=== PATIENT | male | born 1950 | race Caucasian/White ===

== ENCOUNTER 2020-03-19 08:27 | Outpatient (REF) | payer MEDICARE, SELFPAY ==
[2020-03-19 09:59] LABS: MANUAL DIFF FLAG NO
[2020-03-19 10:02] LABS: Basophils Percent Auto 0.4 % (0-2); Eosinophils Absolute Auto 0.2 X10*3/uL (0.0-0.4); Eosinophils Percent Auto 3.4 % (0-4); Hematocrit 38.3 % (42-52); Hemoglobin 13.4 g/dl (14.0-18.0); Imm Gran Abs Auto 0.03 X10*3/uL (0.00-0.03); Imm Gran Pct Auto 0.6 % (0.0-0.4); Lymphocytes Absolute Auto 0.9 X10*3/uL (1.2-4.9); Lymphocytes Percent Auto 18.3 % (20-40); Mean Corpuscular Hemoglobin 31.2 pg (27.0-33.0); Mean Corpuscular Volume 89.1 fL (80-98); Mean Platelet Volume 10.2 fL (9.4-12.4); Monocytes Absolute Auto 0.5 X10*3/uL (0.1-1.2); Monocytes Percent Auto 10.3 % (2-11); Neutrophils Absolute Auto 3.4 X10*3/uL (2.0-8.3); Platelet Count 224 X10*3/uL (160-400); Red Cell Distribution Width 12.6 % (11.0-16.0)
[2020-03-19 10:35] LABS: Alanine Aminotransferase 67 U/L (0-40); Albumin Level 4.5 g/dL (3.5-5.0); Alkaline Phosphatase 70 U/L (39-117); Anion Gap 15 (12-20); Aspartate Amino Transferase 36 U/L (5-37); Bilirubin Total 0.6 mg/dL (0.0-1.0); Blood Urea Nitrogen 26 mg/dL (9-16); Calcium 9.5 mg/dL (8.4-10.2); Carbon Dioxide 27 mmol/L (22-29); Chloride 103 mmol/L (96-108); Cholesterol 173 mg/dL; Estimated Glomerular Filt Rate > 60; Glucose Fasting 141 mg/dL (60-99); HDL Cholesterol 46 mg/dL; LDL Cholesterol Calculated 85 mg/dl; Potassium 3.8 mmol/l (3.3-5.1); Sodium 141 mmol/L (135-145); Total Protein 7.1 g/dL (6.5-8.0); Triglycerides 213 mg/dL
[2020-03-19 10:59] LABS: Estimated Average Glucose 134 mg/dL; Hemoglobin A1c % 6.3 %
[2020-03-19 11:05] LABS: Prostate Specific Antigen < 0.05 ng/mL (<0.05-4.0)
[2020-03-19 11:07] LABS: Glucose Urine UA NEG (NEG); Leukocyte Esterase Urine NEG (NEG); Nitrite Urine NEG (NEG); PH 5.5 (5.0-8.0); Specific Gravity - Urine >= 1.030 (1.005-1.025); Urine Blood TRACE (NEG); Urine Ketones NEG (NEG); Urine Protein NEG (NEG-TRACE)
[2020-03-19 11:26] LABS: Appearance Urine CLEAR; Color Urine YELLOW
[2020-03-19 11:31] LABS: Creatinine Urine 97.63 mg/dL; Microalbum/Creatinine Ratio Ur 11.2 ug/mg cr
[2020-03-19 12:00] LABS: Bacteria Urine TRACE /LPF; Calcium Oxalate Crystals Urine TRACE /LPF; RBC Urine 0-2 /HPF (0); Squamous Epithelial Cell Urine TRACE /LPF; WBC Urine 0-2 /HPF (0-4)
[2020-03-19 12:08] LABS: Reflex LDLD? No
== END 2020-03-19 08:28 | disposition home or self-care (01) ==
LOC: HO.LAB 08:27
PROVIDERS: PCP Internal Medicine; Visit Provider Internal Medicine
DX: Z00.00 Encounter for general adult medical examination without abnormal findings (principal); C61 Malignant neoplasm of prostate; I10 Essential (primary) hypertension; E78.00 Pure hypercholesterolemia, unspecified; R73.09 Other abnormal glucose; Z87.448 Personal history of other diseases of urinary system; Z12.5 Encounter for screening for malignant neoplasm of prostate
CPT/HCPCS: 36415; 80053; 80061; 81001; 81003; 82043; 83036; 84153; 85025

== ENCOUNTER 2020-06-26 11:24 | Outpatient (REF) | payer MEDICARE, SELFPAY ==
[2020-06-26 12:21] LABS: Blood Urea Nitrogen 25 mg/dL (9-16); Estimated Glomerular Filt Rate > 60
== END 2020-06-26 11:25 | disposition home or self-care (01) ==
LOC: HO.LNP 11:24
PROVIDERS: Visit Provider Internal Medicine
DX: R79.9 Abnormal finding of blood chemistry, unspecified (principal)
CPT/HCPCS: 82565; 84520

== ENCOUNTER 2020-09-24 10:34 | Outpatient (REF) | payer MEDICARE, SELFPAY ==
[2020-09-24 11:36] LABS: Alanine Aminotransferase 36 U/L (0-40); Albumin Level 4.2 g/dL (3.5-5.0); Alkaline Phosphatase 63 U/L (39-117); Aspartate Amino Transferase 25 U/L (5-37); Bilirubin Direct 0.2 mg/dL (0.0-0.5); Bilirubin Total 0.6 mg/dL (0.0-1.0); Cholesterol 156 mg/dL; Glucose Fasting 139 mg/dL (60-99); HDL Cholesterol 42 mg/dL; LDL Cholesterol Calculated 77 mg/dl; Total Protein 6.7 g/dL (6.5-8.0); Triglycerides 185 mg/dL
[2020-09-24 11:42] LABS: Estimated Average Glucose 137 mg/dL; Hemoglobin A1c % 6.4 %
[2020-09-24 11:48] LABS: Reflex LDLD? No
== END 2020-09-24 10:35 | disposition home or self-care (01) ==
LOC: HO.LNP 10:34
PROVIDERS: Visit Provider Internal Medicine
DX: E78.00 Pure hypercholesterolemia, unspecified (principal); R73.03 Prediabetes
CPT/HCPCS: 80061; 80076; 82947; 83036

== ENCOUNTER 2021-03-26 10:24 | Outpatient (REF) | payer MEDICARE, SELFPAY ==
[2021-03-26 10:27] LABS: MANUAL DIFF FLAG NO
[2021-03-26 11:02] LABS: Basophils Percent Auto 0.6 % (0-2); Eosinophils Absolute Auto 0.3 X10*3/uL (0.0-0.4); Hematocrit 38.4 % (42.0-52.0); Imm Gran Abs Auto 0.03 X10*3/uL (0.00-0.03); Imm Gran Pct Auto 0.6 % (0.0-0.4); Lymphocytes Absolute Auto 1.1 X10*3/uL (1.2-4.9); Mean Corpuscular HGB Conc 33.9 g/dl (31.0-36.0); Mean Corpuscular Hemoglobin 30.5 pg (27.0-33.0); Mean Corpuscular Volume 90.1 fL (80.0-98.0); Mean Platelet Volume 10.4 fL (9.4-12.4); Monocytes Absolute Auto 0.5 X10*3/uL (0.1-1.2); Monocytes Percent Auto 10.1 % (2-11); Neutrophils Absolute Auto 3.3 x10*3/uL (2.0-8.3); Neutrophils Percent Auto 63.7 % (45-73); Platelet Count 217 X10*3/uL (160-400); Red Blood Count 4.26 X10*6/uL (4.60-5.80); Red Cell Distribution Width 12.9 % (11.0-16.0); White Blood Count 5.2 X10*3/uL (4.8-10.8)
[2021-03-26 11:13] LABS: Estimated Average Glucose 148 mg/dL; Hemoglobin A1c % 6.8 %
[2021-03-26 11:17] LABS: Appearance Urine CLEAR; Color Urine YELLOW; Glucose Urine UA NEG (NEG); Leukocyte Esterase Urine NEG (NEG); Nitrite Urine NEG (NEG); PH 5.5 (5.0-8.0); Specific Gravity - Urine >= 1.030 (1.005-1.025); Urine Blood TRACE (NEG); Urine Ketones NEG (NEG); Urine Protein NEG (NEG-TRACE)
[2021-03-26 11:24] LABS: Microalbum/Creatinine Ratio Ur 12.2 ug/mg cr
[2021-03-26 11:32] LABS: Alanine Aminotransferase 51 U/L (0-40); Albumin Level 4.1 g/dL (3.5-5.0); Alkaline Phosphatase 63 U/L (39-117); Anion Gap 14 (12-20); Aspartate Amino Transferase 33 U/L (5-37); Bilirubin Total 0.7 mg/dL (0.0-1.0); Blood Urea Nitrogen 22 mg/dL (9-16); Calcium 9.6 mg/dL (8.4-10.2); Carbon Dioxide 29 mmol/L (22-29); Chloride 105 mmol/L (96-108); Cholesterol 155 mg/dL; Estimated Glomerular Filt Rate > 60; Glucose Fasting 147 mg/dL (60-99); HDL Cholesterol 37 mg/dL; LDL Cholesterol Calculated 76 mg/dl; Potassium 3.9 mmol/L (3.3-5.1); Sodium 144 mmol/L (135-145); Total Protein 6.9 g/dL (6.5-8.0); Triglycerides 212 mg/dL
[2021-03-26 11:59] LABS: RBC Urine 0-2 /HPF (0); Squamous Epithelial Cell Urine TRACE /LPF; WBC Urine 0-2 /HPF (0-4)
[2021-03-26 12:00] LABS: Bacteria Urine TRACE /LPF; Mucus Urine 1+ /LPF
[2021-03-26 12:21] LABS: PSA,Total (Free>4and<10) < 0.05 ng/mL (0.00-4.00)
== END 2021-03-26 10:25 | disposition home or self-care (01) ==
LOC: HO.LNP 10:24
PROVIDERS: Visit Provider Internal Medicine
DX: Z12.5 Encounter for screening for malignant neoplasm of prostate (principal); E78.00 Pure hypercholesterolemia, unspecified; R73.03 Prediabetes; I10 Essential (primary) hypertension; R97.20 Elevated prostate specific antigen [PSA]; D70.9 Neutropenia, unspecified; D64.9 Anemia, unspecified; R79.9 Abnormal finding of blood chemistry, unspecified
CPT/HCPCS: 80053; 80061; 81001; 81003; 82043; 83036; 84153; 85025

== ENCOUNTER 2021-11-18 11:43 | Outpatient (REF) | payer MEDICARE, SELFPAY ==
[2021-11-18 12:34] LABS: Estimated Average Glucose 143 mg/dL; Hemoglobin A1c % 6.6 %
[2021-11-18 12:36] LABS: Alanine Aminotransferase 47 U/L (0-40); Albumin Level 4.2 g/dL (3.5-5.0); Alkaline Phosphatase 59 U/L (39-117); Aspartate Amino Transferase 32 U/L (5-37); Bilirubin Direct 0.3 mg/dL (0.0-0.5); Bilirubin Total 0.8 mg/dL (0.0-1.0); Cholesterol 146 mg/dL; Glucose Fasting 142 mg/dL (60-99); HDL Cholesterol 39 mg/dL; LDL Cholesterol Calculated 78 mg/dl; Total Protein 6.9 g/dL (6.5-8.0); Triglycerides 149 mg/dL
[2021-11-18 13:53] LABS: Reflex LDLD? No
== END 2021-11-18 11:44 | disposition home or self-care (01) ==
LOC: HO.LNP 11:43
PROVIDERS: Visit Provider Internal Medicine
DX: R73.03 Prediabetes (principal); E78.00 Pure hypercholesterolemia, unspecified
CPT/HCPCS: 80061; 80076; 82947; 83036

== ENCOUNTER → 2022-01-06 08:25 | Outpatient (BNVA) | payer MEDICARE, SELFPAY | PROVIDERS: PCP Internal Medicine; Visit Provider Physician Assistant | DX: M17.11 Unilateral primary osteoarthritis, right knee (principal) | CPT/HCPCS: 20610; 99212; J1040 ==

== ENCOUNTER 2022-05-16 11:12 | Outpatient (REF) | payer MEDICARE, SELFPAY ==
[2022-05-16 11:23] LABS: MANUAL DIFF FLAG NO
[2022-05-16 11:50] LABS: Basophils Percent Auto 0.7 % (0-2); Eosinophils Absolute Auto 0.2 X10*3/uL (0.0-0.4); Eosinophils Percent Auto 3.4 % (0-4); Hematocrit 37.9 % (42.0-52.0); Hemoglobin 12.9 g/dl (14.0-18.0); Imm Gran Abs Auto 0.03 X10*3/uL (0.00-0.03); Imm Gran Pct Auto 0.5 % (0.0-0.4); Lymphocytes Absolute Auto 1.2 X10*3/uL (1.2-4.9); Lymphocytes Percent Auto 21.6 % (20-40); Mean Corpuscular Hemoglobin 30.6 pg (27.0-33.0); Mean Corpuscular Volume 89.8 fL (80.0-98.0); Mean Platelet Volume 10.6 fL (9.4-12.4); Monocytes Absolute Auto 0.5 X10*3/uL (0.1-1.2); Monocytes Percent Auto 9.2 % (2-11); Neutrophils Absolute Auto 3.6 x10*3/uL (2.0-8.3); Neutrophils Percent Auto 64.6 % (45-73); Platelet Count 208 X10*3/uL (160-400); Red Blood Count 4.22 X10*6/uL (4.60-5.80); Red Cell Distribution Width 13.1 % (11.0-16.0); White Blood Count 5.5 X10*3/uL (4.8-10.8)
[2022-05-16 11:52] LABS: Appearance Urine Cloudy; Color Urine Yellow; Glucose Urine UA Negative (Negative); Leukocyte Esterase Urine Negative (Negative); Nitrite Urine Negative (Negative); PH 5.5 (5.0-9.0); Urine Blood Negative (Negative); Urine Ketones Negative (Negative); Urine Protein Negative (Neg-Trace)
[2022-05-16 12:52] LABS: Creatinine Urine 99.81 mg/dL
[2022-05-16 13:02] LABS: Alanine Aminotransferase 34 U/L (0-40); Albumin Level 4.2 g/dL (3.5-5.0); Alkaline Phosphatase 58 U/L (39-117); Anion Gap 13 (12-20); Aspartate Amino Transferase 26 U/L (5-37); Bilirubin Total 0.9 mg/dL (0.0-1.0); Blood Urea Nitrogen 24 mg/dL (9-16); Carbon Dioxide 29 mmol/L (22-29); Chloride 105 mmol/L (96-108); Cholesterol 154 mg/dL; Estimated Glomerular Filt Rate > 60; Glucose Fasting 149 mg/dL (60-99); HDL Cholesterol 37 mg/dL; LDL Cholesterol Calculated 84 mg/dl; PSA,Total (Free>4and<10) < 0.10 ng/mL (0.00-4.00); Sodium 143 mmol/L (135-145); Total Protein 6.7 g/dL (6.5-8.0); Triglycerides 167 mg/dL
[2022-05-16 13:12] LABS: Estimated Average Glucose 146 mg/dL; Hemoglobin A1c % 6.7 %
== END 2022-05-16 11:13 | disposition home or self-care (01) ==
LOC: HO.LNP 11:12
PROVIDERS: Visit Provider Internal Medicine
DX: Z00.00 Encounter for general adult medical examination without abnormal findings (principal); I10 Essential (primary) hypertension; E78.00 Pure hypercholesterolemia, unspecified; R97.20 Elevated prostate specific antigen [PSA]; D70.9 Neutropenia, unspecified; E11.9 Type 2 diabetes mellitus without complications; Z12.5 Encounter for screening for malignant neoplasm of prostate
CPT/HCPCS: 80053; 80061; 81003; 82043; 83036; 84153; 85025

== ENCOUNTER 2022-06-03 10:59 | Outpatient (REF) | payer MEDICARE, SELFPAY | END 2022-06-03 11:00 | disposition home or self-care (01) | LOC: HO.LNP 10:59 | PROVIDERS: PCP Internal Medicine; Visit Provider Surgery | DX: L72.3 Sebaceous cyst (principal); Z79.899 Other long term (current) drug therapy | CPT/HCPCS: 11403; 88304; 88305; 99202 ==

== ENCOUNTER → 2022-06-10 09:02 | Outpatient (BNVA) | payer MEDICARE, SELFPAY | PROVIDERS: PCP Internal Medicine; Visit Provider Surgery ==

== ENCOUNTER → 2022-08-25 10:38 | Outpatient (BNVA) | payer MEDICARE, SELFPAY | PROVIDERS: PCP Internal Medicine; Visit Provider Physician Assistant | DX: M17.11 Unilateral primary osteoarthritis, right knee (principal); M25.561 Pain in right knee; Z96.652 Presence of left artificial knee joint | CPT/HCPCS: 20610; 99212; J1040 ==

== ENCOUNTER 2022-11-21 11:44 | Outpatient (REF) | payer MEDICARE, SELFPAY ==
[2022-11-21 13:52] LABS: Cholesterol 133 mg/dL (<200); HDL Cholesterol 38 mg/dL (>40); LDL Cholesterol Calculated 66 mg/dL (<100); Triglycerides 146 mg/dL (<150)
[2022-11-21 13:53] LABS: Alanine Aminotransferase 25 U/L (0-40); Albumin Level 4.3 g/dL (3.5-5.0); Alkaline Phosphatase 56 U/L (39-117); Aspartate Amino Transferase 22 U/L (5-37); Bilirubin Direct 0.2 mg/dL (0.0-0.5); Bilirubin Total 0.7 mg/dL (0.0-1.0); Glucose Fasting 118 mg/dL (60-99); Total Protein 7.1 g/dL (6.5-8.0)
[2022-11-21 15:04] LABS: Estimated Average Glucose 120 mg/dL; Hemoglobin A1c % 5.8 % (<6.0)
[2022-11-21 16:25] LABS: Reflex LDLD? No
== END 2022-11-21 11:45 | disposition home or self-care (01) ==
LOC: HO.LNP 11:44
PROVIDERS: Visit Provider Internal Medicine
DX: E78.00 Pure hypercholesterolemia, unspecified (principal); E11.9 Type 2 diabetes mellitus without complications
CPT/HCPCS: 80061; 80076; 82947; 83036

== ENCOUNTER 2023-05-19 08:38 | Emergency (ER) | payer MEDICARE, SELFPAY ==
--- NOTE | ~2023-05-19 | CT_ITS ---
EXAMINATION: CT HEAD W/O IV CONTRAST CT FACIAL BONES WITHOUT IV CONTRAST CT CERVICAL SPINE W/O IV CONTRAST CLINICAL INFORMATION: History of fall with head strike and pain. Facial injury. COMPARISON: Report of CT imaging of the facial bones from 08/05/2008 (images currently not available for review) TECHNIQUE: Head - Contiguous axial imaging of the head was performed from the skull base to the vertex without the administration of intravenous contrast, and axial images are reconstructed at 2 mm and 5 mm slice thickness. Cervical spine and facial bones - Volumetric, helical CT acquisitions of the cervical spine and facial bones obtained without contrast; in addition to the standard set of axial images, multiplanar reformatted images were provided in the coronal and sagittal imaging planes. This CT examination was performed using dose optimization techniques as appropriate, variously including the following: *Automated exposure control *Adjustment of mA and/or kV according to patient size (this includes techniques or standardized protocols for targeted exams where dose is matched to indication/reason for exam; i.e. extremities or head) *Use of iterative reconstruction technique DLP: 1181 mGy-cm for the head and cervical spine 339 mGy-cm for the face FINDINGS: HEAD: No evidence of intracranial hemorrhage, major vascular territory infarction, focal mass effect or midline shift. Simmons to white matter differentiation is preserved. Mild parenchymal volume loss with commensurate prominence of ventricles and sulci; no hydrocephalus or extra-axial fluid collection. There appear to be chronic mild small vessel ischemic changes of the supratentorial white matter. The calvarium is intact and the mastoid air cells and middle ear cavities are clear. There is mild soft tissue swelling and soft tissue laceration of the right frontal scalp. FACIAL BONES: There is an old fracture of the floor of the right orbit where the osseous defect is approximately 5-6 mm wide and there is focal osseous depression and focal protrusion of extraconal fat into the defect. Otherwise, the globes and orbital hancock, including lamina papyracea, are unremarkable. The orbital apex, optic canals, and retrobulbar fat planes are normal. The maxilla, mandible and temporomandibular joints are intact. The prior facial bone CT exam from 08/05/2008 described a depressed nasal bone fracture. This current exam shows a slightly comminuted fracture with less than 0.2 cm displacement of the right nasal bone. This is likely from the old injury. The pterygoid plates and zygomatic arches are normal. There is minimal mucosal thickening of the floor of the left maxillary sinus and mild mucosal thickening at the floor of the right maxillary sinus. The ostiomeatal units are patent. No air-fluid levels in the paranasal sinuses. CERVICAL SPINE: The skull base, C1 and C2 lateral masses and atlantodental articulation are intact. The vertebral body heights and alignment are maintained. No fractures in the anterior or posterior elements. No prevertebral soft tissue edema or hematoma. There is osteophyte formation at the atlantodental articulation. There is multilevel degenerative narrowing of disc spaces as well as osteophyte and enthesophyte formation, and multilevel facet arthropathy of the cervical spine. The facet joints are ankylosed on the left at C2-C3, C3-C4 and C4-C5 and on the right at C2-C3. Posterior disc osteophyte complex at C6-C7 causes spinal canal stenosis and narrows the central canal to 9-10 mm AP diameter. The facet arthropathy and uncovertebral joint hypertrophy cause at least moderate bilateral neural foraminal stenosis at this level. Incidentally noted is a heterogeneous multinodular thyroid gland and a nodule in the left lower lobe appears to be exceeding 1.5 cm maximum dimension. Thyroid ultrasound follow-up is recommended for further characterization. Lung apices are unremarkable. CT/CT cervical spine wo IV con IMPRESSION: * No calvarial fracture, intracranial hemorrhage or other acute intracranial pathology. * No fracture or malalignment in the extensively degenerated cervical spine. * There is soft tissue laceration of the right frontal scalp. * Old fracture of the floor of the right orbit. Also, there appears to be an old, mildly displaced, slightly comminuted fracture of the right nasal bone.
--- NOTE | ~2023-05-19 | XR_ITS ---
EXAMINATION: XR SHOULDER, RIGHT CLINICAL INFORMATION: Right shoulder pain COMPARISON: None available. TECHNIQUE: AP external rotation, Grashey, scapular Y, and axillary views of the right shoulder. FINDINGS: There is advanced degenerative change in the right shoulder with osteophyte spurring related to the right AC joint. In the right shoulder, there is no evidence of fracture, dislocation or destructive process. There is a healed fracture of the lateral right fifth rib. XR/XR shoulder RT min 2V IMPRESSION: No acute findings.
[2023-05-19 09:11] VITALS: BP 135/69; PULSE 86; RESP 17; TEMP 36.8; O2SAT 96; BMI 33.6
--- NOTE | 2023-05-19 10:35 | ED_ITS ---
HPI - Fall General Chief Complaint: Fall Stated Complaint: Fell - head laceration Time Seen by Provider: 05/19/23 09:58 Source: patient Mode of arrival: ambulatory Limitations: no limitations History of Present Illness HPI Narrative: This is a 73-year-old male hx htn and prostate cancer presenting to the emergency depart with complaints of laceration to head status post trip and fall, patient reports he is walking he tripped on a chair fell forward and hit his head and face on cement. No loss of consciousness. Denies preceding symptoms to fall. Reports he decided to come into the emergency department because he had a large laceration overlying his right eyebrow that was bleeding a lot. Patient states now he has a diffuse headache without visual disturbances or weakness. Patient denies chest pain, shortness of breath, nausea, vomiting, abdominal pain, vision changes, dizziness, weakness. Not on blood thinners. NIH stroke scale 0 GCS 15 Related Data Home Medications Medication Instructions Recorded Confirmed ibuprofen 800 mg tablet 800 mg PO TID 01/06/22 lisinopril 20 1 tab PO BID 01/06/22 mg-hydrochlorothiazide 12.5 mg tablet simvastatin 80 mg tablet 80 mg PO DAILY 01/06/22 zolpidem 5 mg tablet 5 mg PO BEDTIME PRN 01/06/22 Allergies Allergy/AdvReac Type Severity Reaction Status Date / Time atorvastatin [From LIPITOR] Allergy Unknown MYALGIA Unverified 08/25/22 10:46 nut - unspecified [NUTS] Allergy Unknown SWELLING Unverified 08/25/22 10:46 PITTED FRUIT Allergy Severe SWELLING Uncoded 08/25/22 10:46 FRUIT Allergy Unknown SWELLING Uncoded 08/25/22 10:46 WITH SOME FRUIT Review of Systems Review of Systems: Yes all other systems are reviewed and are negative [facility] Past Medical History Attestation statement: The following information was validated with the patient. Source: old records reviewed and nursing notes reviewed Medical History Hypertension Prostate cancer Surgical History History of left knee replacement Family History Family History Father Prostate cancer Sister Breast cancer Social History Social History Alcohol intake: current Alcohol intake frequency: holidays/special occasions only Alcohol type: beer and hard liquor Patient Tobacco Use Status: Former Tobacco user Physical Exam Vital Signs: Vital Signs: Last Vital Signs Temp 98.2 F 05/19/23 09:11 Pulse 86 05/19/23 09:11 Resp 17 05/19/23 09:11 BP 135/69 05/19/23 09:11 Pulse Ox 96 05/19/23 09:11 O2 Del Method Room Air 05/19/23 09:11 BMI result Body Mass Index 33.6 vss Appearance: Alert.? Oriented X3.? No acute distress.? Head: Normocephalic, atraumatic, no step-offs or deformities Eyes: Pupils equal, round and reactive to light.? Neck: Normal inspection.? Neck supple.? CVS: Normal heart rate and rhythm.? Pulses normal.? Respiratory: No respiratory distress.? Breath sounds normal.? Abdomen: Soft and nontender.? Skin: Skin warm and dry.? Normal skin color.? Normal skin turgor.? Extremities: No lower extremity edema.? No calf ttp. 5/5 strength to bilateral upper and lower extremities Neuro: Oriented X 3.? No motor deficit.? No sensory deficit. CN 2-12 intact Course Reevaluation(s) Reevaluation #1: Consent was obtained to suture patient. Laceration was closed with 5, 5-0 nonabsorbable sutures. Patient tolerated procedure well. Educated him on when to return. CT head no intracranial hemorrhage, no fracture malalignment in the extensively degenerated cervical spine. Soft tissue laceration over the right frontal scalp. Old fracture of the floor of the right orbit and old minimally displaced comminuted fracture of the right nasal bone. Patient aware of these old findings. Reports this was from an incident years ago when he fell off a ladder. Offered ibuprofen or Tylenol patient states he has some at home. Patient to be discharged home at this time. Likely has a concussion. Educated patient on diagnosis and treatment plan, answered all question, patient verbalizes understanding. At this time patient will be discharged home, advised to return with new or worsening symptoms. Educated on worrisome signs and symptoms and when to return. At this time I feel comfortable discharge home. Time: 11:37 Medications Administered Discontinued Medications Generic Name Dose Route Start Last Admin Trade Name Freq PRN Reason Stop Dose Admin Diphtheria/Tetanus/Acell Pertussis 0.5 ml 05/19/23 10:36 05/19/23 11:12 Diphth,Pertus(Acell),Tet Adult 0.5 Ml Syringe IM 05/19/23 10:37 0.5 ml .ONCE ONE Administration Lidocaine HCl 5 ml 05/19/23 10:35 05/19/23 11:21 Lidocaine Hcl 2 % Mpf 5 Ml Vial SUBCUT 05/19/23 10:36 Not Given ONCE ONE Lidocaine HCl 5 ml 05/19/23 10:35 05/19/23 11:21 Lidocaine Hcl 2 % Mpf 5 Ml Vial INFILTRATI 05/19/23 10:36 Not Given ONCE ONE Procedures Laceration Laceration 1: Site: face Size (cm): 3 Description: linear Depth: simple, single layer Local Anesthetic: lidocaine 1% Amount of anesthesia used (mL): 4 Pre-repair: wound explored, irrigated extensively and deep structures intact Skin layer closed with: vicryl Size (cm): 5-0 Number of sutures: 5 Technique: simple, interrupted Medical Decision Making Medical Decision Making MDM Narrative: 73-year-old male presents with head lag status post trip and fall. Fall happened earlier this morning. Not on blood thinners. No preceding symptoms to fall. Physical exam with 3 cm laceration overlying the right eyebrow. Neurological assessment nonfocal, cerebellar intact. History and physical exam concerning for laceration and concussion. Unlikely skull fracture, facial bone fracture, intracranial hemorrhage, stroke posterior stroke. No signs of traumatic injury to cervical spine. No signs of traumatic injury to chest, abdomen or pelvis. Patient is complaining of slight right shoulder discomfort however full range of motion likely sprain or strain. Unlikely fracture, dislocation, traumatic subluxation. No signs of threat to limb or neurovascular compromise. Plan at this time imaging. Will also repair laceration with sutures. Differential Diagnosis Differential Diagnoses: The differential diagnosis associated with the presentation includes History and physical exam concerning for laceration and concussion. Unlikely skull fracture, facial bone fracture, intracranial hemorrhage, stroke posterior stroke. No signs of traumatic injury to cervical spine. No signs of traumatic injury to chest, abdomen or pelvis. Patient is complaining of slight right shoulder discomfort however full range of motion likely sprain or strain. Unlikely fracture, dislocation, traumatic subluxation. No signs of threat to limb or neurovascular compromise. Admission/Observation Consideration of admission/observation: Escalation of care including admission/observation considered Unlikely Lab Data MDM Lab Attestation statement: I reviewed the patient's lab results. Independent Interpretation I performed an independent interpretation of an: Plain X-Ray and CT Scan Radiology Impression Discussion of test interpretation with radiology: I have reviewed the radiologist's reading. Independent Historian Self External Record Review External record reviewed: Inpatient record, Office record, Outpatient record, Prior outpatient labs, Prior outpatient radiology, Primary care record and Outside ED record Prescription Management I considered prescription management with: Other (Ibuprofen and tylenol OTC recommended. ) Chronic Conditions Patient?s care impacted by: Hypertension and Cancer (prostate cancer) Social Determinants Patient?s care significantly limited by Social Determinants of Health including: Other Social Determinant of Health Critical Care Time Critical Care Time Critical Care Time: Yes Total Critical Care Time: 35 Attestation: I attest to this time spent taking care of the patient, obtaining history, physical, reviewing labs, imaging, procedure Discharge Plan Discharge Clinical Impression: Concussion without loss of consciousness Qualifiers: Encounter type: initial encounter Qualified Code(s): S06.0X0A - Concussion without loss of consciousness, initial encounter Laceration of head without complication Qualifiers: Encounter type: initial encounter Qualified Code(s): S01.91XA - Laceration without foreign body of unspecified part of head, initial encounter Fall Qualifiers: Encounter type: initial encounter Qualified Code(s): W19.XXXA - Unspecified fall, initial encounter Patient Disposition: Home, Self-Care Instructions: Laceration (ED), Concussion (ED), Post Concussion Syndrome (ED) Additional Instructions: Take your medications as prescribed. If you were prescribed antibiotics today, it is important that you take your medication to their entirety, do not skip any doses, do not finish them early. Follow-up with your primary care provider this week. Return to the emergency department with new or worsening symptoms. Such as fevers, chills, chest pain, shortness of breath, nausea, vomiting, dizziness, headache, vision changes, lethargy In case of emergency call 911 Return in 5-7 days for suture removal You can take ibuprofen every 6 hours Tylenol every 4 as needed for pain or discomfort. Feel better CT/CT facial bones , head and cervical spine wo IV con IMPRESSION: * No calvarial fracture, intracranial hemorrhage or other acute intracranial pathology. * No fracture or malalignment in the extensively degenerated cervical spine. * There is soft tissue laceration of the right frontal scalp. * Old fracture of the floor of the right orbit. Also, there appears to be an old, mildly displaced, slightly comminuted fracture of the right nasal bone. Prescriptions: No Action zolpidem 5 mg tablet 5 mg PO BEDTIME PRN simvastatin 80 mg tablet 80 mg PO DAILY ibuprofen 800 mg tablet 800 mg PO TID lisinopril-hydrochlorothiazide 20-12.5 mg tablet 1 tab PO BID Referrals: Chris Sanchez MD [Primary Care Provider] - 2 days Stand Alone Forms: Work/School Release
[2023-05-19] MEDS: Diphth,Pertus(ACell),Tet Adult 0.5 ML SYRINGE IM (11:12)
== END 2023-05-19 11:58 | disposition home or self-care (01) ==
PROVIDERS: Emergency Provider Emergency Medicine Emergency Medical Services; PCP Internal Medicine
DX: S06.0X0A Concussion without loss of consciousness, initial encounter (principal); S01.01XA Laceration without foreign body of scalp, initial encounter; S00.01XA Abrasion of scalp, initial encounter; M54.2 Cervicalgia; M79.601 Pain in right arm; R51.9 Headache, unspecified; W07.XXXA Fall from chair, initial encounter; Y93.9 Activity, unspecified; Y92.9 Unspecified place or not applicable; Y99.8 Other external cause status; Z79.899 Other long term (current) drug therapy; Z23 Encounter for immunization
CPT/HCPCS: 12013; 70450; 70486; 72125; 73030; 90471; 90715; 99284

== ENCOUNTER 2023-05-19 10:57 | Outpatient (REF) | payer MEDICARE, SELFPAY ==
[2023-05-19 11:01] LABS: MANUAL DIFF FLAG NO
[2023-05-19 11:33] LABS: Appearance Urine Clear; Color Urine Yellow; Glucose Urine UA Negative (Negative); Leukocyte Esterase Urine Negative (Negative); Nitrite Urine Negative (Negative); PH 5.5 (5.0-9.0); Urine Blood Negative (Negative); Urine Ketones Negative (Negative); Urine Protein Negative (Neg-Trace)
[2023-05-19 11:36] LABS: Bacteria Urine None Seen (None Seen); Hyaline Casts Urine 0-2 /LPF (0-2); RBC Urine 0-2 /HPF (0-2); Squamous Epithelial Cell Urine 0-2 /HPF (0-2); WBC Urine 0-5 /HPF (0-5)
[2023-05-19 11:38] LABS: Basophils Absolute Auto 0.1 X10*3/uL (0.0-0.2); Basophils Percent Auto 0.9 % (0-2); Eosinophils Absolute Auto 0.2 X10*3/uL (0.0-0.4); Eosinophils Percent Auto 3.9 % (0-4); Hematocrit 38.8 % (42.0-52.0); Hemoglobin 13.3 g/dl (14.0-18.0); Imm Gran Abs Auto 0.02 X10*3/uL (0.00-0.03); Imm Gran Pct Auto 0.3 % (0.0-0.4); Lymphocytes Absolute Auto 1.2 X10*3/uL (1.2-4.9); Lymphocytes Percent Auto 20.4 % (20-40); Mean Corpuscular HGB Conc 34.3 g/dl (31.0-36.0); Mean Corpuscular Hemoglobin 30.6 pg (27.0-33.0); Mean Corpuscular Volume 89.2 fL (80.0-98.0); Monocytes Absolute Auto 0.6 X10*3/uL (0.1-1.2); Monocytes Percent Auto 10.2 % (2-11); Neutrophils Absolute Auto 3.8 x10*3/uL (2.0-8.3); Neutrophils Percent Auto 64.3 % (45-73); Platelet Count 211 X10*3/uL (160-400); Red Blood Count 4.35 X10*6/uL (4.60-5.80); White Blood Count 5.9 X10*3/uL (4.8-10.8)
[2023-05-19 11:44] LABS: Estimated Average Glucose 114 mg/dL; Hemoglobin A1c % 5.6 % (<6.0)
[2023-05-19 12:08] LABS: Alanine Aminotransferase 33 U/L (0-40); Albumin Level 4.3 g/dL (3.5-5.0); Alkaline Phosphatase 64 U/L (39-117); Anion Gap 13 (12-20); Aspartate Amino Transferase 25 U/L (5-37); Bilirubin Total 0.7 mg/dL (0.0-1.0); Blood Urea Nitrogen 29 mg/dL (9-16); Calcium 9.6 mg/dL (8.4-10.2); Carbon Dioxide 28 mmol/L (22-29); Chloride 107 mmol/L (96-108); Cholesterol 122 mg/dL (<200); Estimated Glomerular Filt Rate > 60; Glucose Fasting 98 mg/dL (60-99); HDL Cholesterol 42 mg/dL (>40); LDL Cholesterol Calculated 62 mg/dL (<100); Potassium 3.8 mmol/L (3.3-5.1); Sodium 144 mmol/L (135-145); Total Protein 7.2 g/dL (6.5-8.0); Triglycerides 94 mg/dL (<150)
[2023-05-19 12:15] LABS: Creatinine Urine 82.58 mg/dL; Microalbum/Creatinine Ratio Ur 7.2 ug/mg cr (<30)
[2023-05-19 12:23] LABS: PSA,Total (Free>4and<10) < 0.10 ng/mL (0.00-4.00)
== END 2023-05-19 10:58 | disposition home or self-care (01) ==
LOC: HO.LNP 10:57
PROVIDERS: Visit Provider Internal Medicine
DX: Z00.00 Encounter for general adult medical examination without abnormal findings (principal); I10 Essential (primary) hypertension; E78.00 Pure hypercholesterolemia, unspecified; D70.9 Neutropenia, unspecified; E11.9 Type 2 diabetes mellitus without complications; Z12.5 Encounter for screening for malignant neoplasm of prostate
CPT/HCPCS: 80053; 80061; 81001; 82043; 82570; 83036; 84153; 85025

== ENCOUNTER 2023-06-09 08:10 | Outpatient (REF) | payer MEDICARE, SELFPAY ==
--- NOTE | ~2023-06-09 | US_ITS ---
EXAMINATION: US THYROID CLINICAL INFORMATION: Thyroid nodule. COMPARISON: CT cervical spine 05/19/2023. TECHNIQUE: Linear transducer grayscale and color Doppler examination with attention to the region of the thyroid. FINDINGS: SIZE: Measurements of the thyroid lobes and nodules are given in sagittal, anteroposterior and transverse dimensions respectively. Right Thyroid Lobe: 6.1 x 2.4 x 1.8 cm, volume 13.2 mL. Parenchyma: The gland echotexture is heterogeneous. Thyroid vascularity is normal. Left Thyroid Lobe: 6.6 x 2.6 x 2.3 cm, volume 20.5 mL. Parenchyma: The gland echotexture is heterogeneous. Thyroid vascularity is normal. Isthmus: 0.5 cm in maximum AP dimension. Estimated total number of nodules greater than or equal to 1 cm: 3. Early Childhood Worker nodules are described as follows: 1. Location: Right mid pole. Size: 0.6 x 0.5 x 0.6 cm, volume 0.70 mL. Nodule characteristics: Composition: Cystic(0). ACR TI-RADS total points: 0 ACR TI-RADS category: 1 2. Location: Right lower pole. Size: 2.0 x 1.3 x 1.5 cm, volume 0.20 mL. Nodule characteristics: Composition: Solid/almost completely solid (2). Echogenicity: Hypoechoic (2). Shape: Not taller than wide (0). Margins: Cannot be determined (0). Echogenic Foci: Macrocalcifications (1). ACR TI-RADS total points: 5 ACR TI-RADS category: 4 3. Location: Right lower pole. Size: 0.8 x 0.4 x 0.8 cm, volume 0.14 mL. Nodule characteristics: Composition: Solid/almost completely solid (2). Echogenicity: Very hypoechoic (3). Shape: Not taller than wide (0). Margins: Smooth (0). Echogenic Foci: Comet-tail artifacts (0). ACR TI-RADS total points: 5 ACR TI-RADS category: 4 4. Location: Left upper pole. Size: 1.5 x 0.8 x 1.4 cm, volume 0.90 mL. Nodule characteristics: Composition: Mixed cystic and solid (1). Echogenicity: Hypoechoic (2). Shape: Not taller than wide (0). Margins: Cannot be determined (0). Echogenic Foci: Punctate echogenic foci (3). ACR TI-RADS total points: 6 ACR TI-RADS category: 4 5. Location: Left lower pole. Size: 3.6 x 3.0 x 3.4 cm, volume 19.5 mL. Nodule characteristics: Composition: Solid (2). Echogenicity: Hypoechoic (2). Shape: Not taller than wide (0). Margins: Smooth (0). Echogenic Foci: Macrocalcifications (1). ACR TI-RADS total points: 5 ACR TI-RADS category: 4 NODES: No lymphadenopathy is seen in the tissue surrounding the thyroid gland. US/US thyroid IMPRESSION: Enlarged heterogeneous thyroid gland with multiple TR 4 nodules. Early Childhood Worker nodules measuring 1.5 cm in the left upper pole, 2 cm in the right lower pole and 3.6 cm in the left lower pole, for which further evaluation with FNA is recommended. ACR TI-RADS RECOMMENDATION REFERENCE: Ultrasound-guided fine-needle aspiration, followup ultrasound, no further follow up. * TR1 (0 point) and TR2 (2 points): No FNA or follow up. * TR3 (3 points): FNA if more than or equal to 2.5 cm in maximum dimension, followup ultrasound in 1, 3 and 5 years if 1.5 to 2.4 cm in maximum dimension. * TR4 (4-6 points): FNA if more than or equal to 1.5 cm in maximum dimension, followup ultrasound in 1, 2, 3 and 5 years if 1 to 1.4 cm in maximum dimension. * TR5 (more than or equal to 7 points): FNA if more than or equal to 1 cm in maximum dimension, followup ultrasound every year for 5 years if 0.5 to 0.9 cm in maximum dimension. * TR3, TR4 or TR5 nodules that are below the size threshold for followup receive no follow up.
== END 2023-06-09 08:11 | disposition home or self-care (01) ==
LOC: HO.HMGCX 08:10
PROVIDERS: PCP Internal Medicine; Visit Provider Internal Medicine
DX: E04.1 Nontoxic single thyroid nodule (principal)
CPT/HCPCS: 76536

== ENCOUNTER 2023-06-19 11:19 | Outpatient (REF) | payer MEDICARE, SELFPAY ==
[2023-06-19 12:11] LABS: Blood Urea Nitrogen 25 mg/dL (9-16); Estimated Glomerular Filt Rate > 60
== END 2023-06-19 11:20 | disposition home or self-care (01) ==
LOC: HO.LNP 11:19
PROVIDERS: Visit Provider Internal Medicine
DX: R79.9 Abnormal finding of blood chemistry, unspecified (principal)
CPT/HCPCS: 82565; 84520

== ENCOUNTER 2023-06-30 12:35 | Outpatient (REF) | payer MEDICARE, SELFPAY ==
--- NOTE | ~2023-06-30 | US_ITS ---
PROCEDURE: US BIOPSY THYROID CLINICAL INFORMATION: Bilateral thyroid nodules COMPARISON: 06/09/23 thyroid ultrasound TECHNIQUE/FINDINGS: Informed consent was obtained following discussion of the risks and benefits of the procedure with the patient. The patient was placed supine on the ultrasound procedure table. Preliminary ultrasound demonstrates bilateral heterogeneous nodules in concordance with recent ultrasound findings. The right side was addressed first. Following the administration of 1% lidocaine for local anesthesia, 3 FNA samples of the right thyroid nodule were obtained utilizing a 22-gauge needle. Then the left side was addressed. Following the administration of 1% lidocaine for local anesthesia, 3 FNA samples of the left lower pole thyroid nodule were obtained utilizing a 22-gauge needle. Postprocedure ultrasound image does not demonstrate any evidence of bleeding or other complication. The patient tolerated procedure well. US/US biopsy thyroid IMPRESSION: FNA of bilateral thyroid nodules
[2023-06-30] MEDS: Lidocaine HCl 1 % MPF 5 ML VIAL SUBCUT (13:54)
== END 2023-06-30 12:36 | disposition home or self-care (01) ==
LOC: HO.US 12:35
PROVIDERS: PCP Internal Medicine; Visit Provider Internal Medicine
DX: E04.1 Nontoxic single thyroid nodule (principal)
CPT/HCPCS: 10005; 88173; 88305

== ENCOUNTER → 2023-06-30 12:37 | Outpatient (BNV) | payer MEDICARE, SELFPAY | PROVIDERS: PCP Internal Medicine; Visit Provider Student in an Organized Health Care Education/Training Program | DX: E04.2 Nontoxic multinodular goiter (principal) | CPT/HCPCS: 10005; 10006 ==

== ENCOUNTER 2024-01-08 11:42 | Outpatient (REF) | payer MEDICARE, SELFPAY ==
[2024-01-08 12:12] LABS: Estimated Average Glucose 114 mg/dL; Hemoglobin A1C 126.8344 umol/L; Hemoglobin A1c % 5.6 % (<6.0); Total Hemoglobin (HGBA1C) 3398.1376 umol/L
[2024-01-08 14:27] LABS: Alanine Aminotransferase 31 U/L (0-40); Albumin Level 4.2 g/dL (3.5-5.0); Alkaline Phosphatase 52 U/L (39-117); Aspartate Amino Transferase 31 U/L (5-37); Bilirubin Direct 0.1 mg/dL (0.0-0.5); Bilirubin Total 0.4 mg/dL (0.0-1.0); Cholesterol 165 mg/dL (<200); Glucose Fasting 113 mg/dL (60-99); HDL Cholesterol 50 mg/dL (>40); LDL Cholesterol Calculated 94 mg/dL (<100); Reflex LDLD? No; Total Protein 7.2 g/dL (6.5-8.0); Triglycerides 107 mg/dL (<150)
== END 2024-01-08 11:43 | disposition home or self-care (01) ==
LOC: HO.LNP 11:42
PROVIDERS: Visit Provider Internal Medicine
DX: E78.00 Pure hypercholesterolemia, unspecified (principal); E11.9 Type 2 diabetes mellitus without complications
CPT/HCPCS: 80061; 80076; 82947; 83036

== ENCOUNTER 2024-05-20 10:52 | Outpatient (REF) | payer MEDICARE, SELFPAY ==
[2024-05-20 10:56] LABS: MANUAL DIFF FLAG NO
[2024-05-20 11:12] LABS: Basophils Percent Auto 1.1 % (0-2); Eosinophils Absolute Auto 0.1 X10*3/uL (0.0-0.4); Eosinophils Percent Auto 3.5 % (0-4); Hematocrit 37.4 % (42.0-52.0); Hemoglobin 12.8 g/dl (14.0-18.0); Imm Gran Abs Auto 0.02 X10*3/uL (0.00-0.03); Imm Gran Pct Auto 0.5 % (0.0-0.4); Lymphocytes Absolute Auto 0.7 X10*3/uL (1.2-4.9); Lymphocytes Percent Auto 19.5 % (20-40); Mean Corpuscular HGB Conc 34.2 g/dl (31.0-36.0); Mean Corpuscular Hemoglobin 31.1 pg (27.0-33.0); Mean Platelet Volume 10.3 fL (9.4-12.4); Monocytes Absolute Auto 0.4 X10*3/uL (0.1-1.2); Monocytes Percent Auto 11.5 % (2-11); Neutrophils Absolute Auto 2.4 x10*3/uL (2.0-8.3); Neutrophils Percent Auto 63.9 % (45-73); Platelet Count 193 X10*3/uL (160-400); Red Blood Count 4.11 X10*6/uL (4.60-5.80); Red Cell Distribution Width 13.5 % (11.0-16.0); White Blood Count 3.8 X10*3/uL (4.8-10.8)
[2024-05-20 11:13] LABS: Appearance Urine Clear; Color Urine Yellow; Glucose Urine UA Negative (Negative); Leukocyte Esterase Urine Negative (Negative); Nitrite Urine Negative (Negative); Specific Gravity - Urine 1.015 (1.005-1.025); Urine Blood Negative (Negative); Urine Ketones Negative (Negative); Urine Protein Negative (Neg-Trace)
[2024-05-20 11:18] LABS: Bacteria Urine None Seen (None Seen); Hyaline Casts Urine 0-2 /LPF (0-2); RBC Urine 0-2 /HPF (0-2); Squamous Epithelial Cell Urine 0-2 /HPF (0-2); WBC Urine 0-5 /HPF (0-5)
[2024-05-20 11:28] LABS: Estimated Average Glucose 111 mg/dL; Hemoglobin A1c % 5.5 % (<6.0)
[2024-05-20 11:44] LABS: Alanine Aminotransferase 40 U/L (0-40); Albumin Level 4.1 g/dL (3.5-5.0); Alkaline Phosphatase 48 U/L (39-117); Anion Gap 12 (12-20); Aspartate Amino Transferase 32 U/L (5-37); Bilirubin Total 0.6 mg/dL (0.0-1.0); Blood Urea Nitrogen 25 mg/dL (9-16); Calcium 9.3 mg/dL (8.4-10.2); Carbon Dioxide 28 mmol/L (22-29); Chloride 107 mmol/L (96-108); Cholesterol 149 mg/dL (<200); Estimated Glomerular Filt Rate > 60; Glucose Fasting 106 mg/dL (60-99); HDL Cholesterol 43 mg/dL (>40); LDL Cholesterol Calculated 84 mg/dL (<100); Sodium 143 mmol/L (135-145); Total Protein 7.2 g/dL (6.5-8.0); Triglycerides 113 mg/dL (<150)
[2024-05-20 11:51] LABS: PSA,Total (Free>4and<10) < 0.10 ng/mL (0.00-4.00); TSH reflex Free T4 3.49 uIU/mL (0.32-4.0)
[2024-05-20 12:26] LABS: Creatinine Urine 86.97 mg/dL; Microalbum/Creatinine Ratio Ur 6.8 ug/mg cr (<30)
--- OUTSIDE RECORDS SUMMARY | 2024-05-20 12:31 | XMS_ITS ---
Author Organization Chris Sanchez MD Address [address] [place] [phone] Care Team Providers Care Manager Mass Name Role Phone Chris Sanchez Primary Care Provider Results Component Value Reference Range Notes Complete Blood Count Auto Di ff (Not yet reviewed by provider) Interpretation: Performing Lab:[facility], [address] [place] [phone] Notes/Report: White Blood Count 3.8 4.8-10.8 X10*3/uL Red Blood Count 4.11 4.60-5.80 X10*6/uL Hemoglobin 12.8 14.0-18.0 g/dl Hematocrit 37.4 42.0-52.0 % Mean Corpuscular Volume 91.0 80.0-98.0 fL Mean Corpuscular Hemoglobin 31.1 27.0-33.0 pg Mean Corpuscular HGB Conc 34.2 31.0-36.0 g/dl Red Cell Distribution Width 13.5 11.0-16.0 % Platelet Count 193 160-400 X10*3/uL Mean Platelet Volume 10.3 9.4-12.4 fL Neutrophils Percent Auto 63.9 45-73 % Imm Gran Pct Auto 0.5 0.0-0.4 % Lymphocytes Percent Auto 19.5 20-40 % Monocytes Percent Auto 11.5 2-11 % Eosinophils Percent Auto 3.5 0-4 % Basophils Percent Auto 1.1 0-2 % NRBC Pct Auto 0.0 0.0-0.2 /100WBC Neutrophils Absolute Auto 2.4 2.0-8.3 x10*3/u L Imm Gran Abs Auto 0.02 0.00-0.03 X10*3/uL Lymphocytes Absolute Auto 0.7 1.2-4.9 X10*3/u L Monocytes Absolute Auto 0.4 0.1-1.2 X10*3/uL Eosinophils Absolute Auto 0.1 0.0-0.4 X10*3/u L Basophils Absolute Auto 0.0 0.0-0.2 X10*3/uL NRBC Abs Auto 0.000 0.0-0.012 X10*3/uL Comprehensive [place]. Panel Fa st (Not yet reviewed by provider) Interpretation: Performing Lab:[facility], [address] [place] [phone] Notes/Report: Sodium 143 135-145 mmol/L Potassium 4.0 3.3-5.1 mmol/L Chloride 107 96-108 mmol/L Carbon Dioxide 28 22-29 mmol/L Anion Gap 12 12-20 Blood Urea Nitrogen 25 9-16 mg/dL Creatinine 0.93 0.5-1.4 mg/dL Estimated Glomerular Filt Rate > 60 Chronic Kidney Disease: Estimated GFR < 60 mL/min/1.73m2 Severe Kidney Disease: Estimated GFR < 15 mL/min/1.73m2 Glucose Fasting 106 60-99 mg/dL A fasting glucose from 100-125 mg/dl is considered impaired (pre-diabetes). Calcium 9.3 8.4-10.2 mg/dL Bilirubin Total 0.6 0.0-1.0 mg/dL Aspartate Amino Transferase 32 5-37 U/L Alanine Aminotransferase 40 0-40 U/L Total Protein 7.2 6.5-8.0 g/dL Albumin Level 4.1 3.5-5.0 g/dL Alkaline Phosphatase 48 39-117 U/L Microalbumin, Random (Not ye t reviewed by provider) Interpretation: Performing Lab:[address] [phone] Notes/Report: Creatinine Urine 86.97 Microalbumin Urine 6.0 Microalbum/Creatinine Ratio Ur 6.8 <30 ug/mg cr Albumin/Creatinine Ratio Reference Ranges: Normal: < 30 ug/mg creatinine Microalbuminuria: 30 - 300 ug/mg creatinine Clinical Albuminuria: > 300 ug/mg creatinine UA ClnCatch+Micro w/rflx Cul t (Not yet reviewed by provider) Interpretation: Performing Lab:[address] [phone] Notes/Report: Urine, Clean Catch Color Urine Yellow Appearance Urine Clear PH 6.0 5.0-9.0 Glucose Urine UA Negative Negative mg/dL Urine Blood Negative Negative Specific Mack - Urine 1.015 1.005-1.025 Urine Protein Negative Neg-Trace mg/dL Urine Ketones Negative Negative mg/dL Nitrite Urine Negative Negative Leukocyte Esterase Urine Negative Negative RBC Urine 0-2 0-2 /HPF WBC Urine 0-5 0-5 /HPF Squamous Epithelial Cell Urine 0-2 0-2 /HPF Bacteria Urine None Seen None Seen Hyaline Casts Urine 0-2 0-2 /LPF Lipid Panel Reviewed date:05/20/2024 12:15:55 PM Interpretation: Performing Lab:[address] [phone] Notes/Report: Triglycerides 113 <150 mg/dL Desirable Triglyceride: less than 150 mg/dL Borderline High Triglyceride 150-199 mg/dL High Triglyceride: 200-499 mg/dL Very High Triglyceride: greater than or equal to 5OO mg/dL Cholesterol 149 <200 mg/dL Desirable Cholesterol: less than 200 mg/dL Borderline High Cholesterol: 200-239 mg/dL High Cholesterol: greater than 239 mg/dL LDL Cholesterol Calculated 84 <100 mg/dL Desirable LDL: less than 100 mg/dL Near Optimal/Above Optimal LDL: 110-129 mg/dL Borderline High LDL: 130-159 mg/dL High LDL: 160-189 mg/dL Very High LDL: greater than or equal to 190 mg/dL HDL Cholesterol 43 >40 mg/dL Desirable HDL: greater than 40 mg/dL Note: This HDL assay may give artificially low results in patients with liver disease. PSA,Total (Free>4and<10) Reviewed date:05/20/2024 12:11:38 PM Interpretation: Performing Lab:[facility], [address] [place] [phone] Notes/Report: PSA,Total (Free>4and<10) < 0.10 0.00-4.00 ng/mL A Free PSA was not performed: The percentage of Free PSA can be used to enhance the differentiation of prostate cancer from benign prostatic disease in subjects whose PSA levels are between 4.0 and 10.0 ng/mL. For subjects whose PSA levels are below 4.0 or above 10.0 ng/mL, the risk of prostate cancer is determined on the basis of the PSA alone. Therefore the % Free PSA is recommended only for those subjects whose PSA levels are between 4.0 and 10.0 ng/mL. PSA methodology: Hamilton Alinity i Chemiluminescent Microparticle Immunoassay (CMIA) TSH reflex Free T4 Reviewed date:05/20/2024 12:15:47 PM Interpretation: Performing Lab:[facility], [address] [place] [phone] Notes/Report: TSH reflex Free T4 3.49 0.32-4.0 uIU/mL Hemoglobin A1c Reviewed date:05/20/2024 12:17:15 PM Interpretation: Performing Lab:[facility], [address] [place] [phone] Notes/Report: Hemoglobin A1c % 5.5 <6.0 % Hemoglobin A1C Reference Range Adults: 4.8 - 6.0 % Non diabetic: < 6.0 % Goal: < 7.0 % Additional Action Suggested: > 8.0 % Note: Hemoglobin A1c results are invalid for patients with abnormal amounts of HbF. Blood transfusions may impact the HbA1c concentration in the patient sample. Estimated Average Glucose 111 eAG = Estimated average glucose which is %A1C expressed as average glucose, using the formula of the A1E-Krrddxq Average Glucose study (ADAG), Diabetes Care, Vol.31,#8, 2007 REASON FOR VISIT FASTING LABS Encounters Encounter Location Date Provider Diagnosis Chris Sanchez MD [address] [place] [address] Drive [address] [place], [place] [phone] 05/20/2024 Chris Sanchez Blood tests for rachel hurd general physical examination Z00.00 ; Essential hypertension I10 ; Pure hypercholesterolemia E78.00 ; Elevated PSA R97.20 ; Neutropenia, unspecified type D70.9 ; Type 2 diabetes mellitus without complication, with no history of insulin use E11.9 and Thyroid nodule E04.1 Assessments Encounter Date Diagnosis (ICD Code) Assessment Notes Treatment Notes Treatment Clinical Notes Section Notes 05/20/2024 Blood tests for rachel hurd general physical examination (ICD-10 - Z00.00) 05/20/2024 Essential hypertensi on (ICD-10 - I10) 05/20/2024 Pure hypercholesterolemia (ICD-10 - E78.00) 05/20/2024 Elevated PSA (ICD-10 - R97.20) 05/20/2024 Neutropenia, unspeci fied type (ICD-10 - D70.9) 05/20/2024 Type 2 diabetes heidy itus without complication, with no history of insulin use (ICD-10 - E11.9) 05/20/2024 Thyroid nodule (ICD- 10 - E04.1) Plan Of Treatment Pending Test Test Name Order Date Complete Blood Count Auto Diff 5 Comprehensive [place]. Panel Fast 5 Microalbumin, Random 05/20/2024 UA ClnCatch+Micro w/rflx Cult 05/20/2024 Next Appt Details Provider Name:Chris Bowers ier, 05/27/2024 08:30:00 AM, [address] [place] [address] Drive, [address], [place], [place], [phone], Progress Notes * Shay WHEELER RDOB:[birth year] (74 yo M)Acc No.[id number]:05/20/2024 Progress Note Patient:?Shay WHEELER Provider:?Chris Sanchez MD :1950???Age:74 Y???Sex:Male Everette e:05/20/2024 Address:[address] [place] [address] [phone] Subjective: * Chief Complaints: * ???1. FASTING LABS. * Medical History:? Objective: * Vitals:? Assessment: * Assessment: 1.?Blood tests for routine g eneral physical examination - Z00.00 (Primary)???2.?Essential hypertension - I10???3.?Pure hypercholesterolemia - E78.00???4.?Elevated PSA - R97.20???5.?Neutropenia, unspecified type - D70.9???6.?Type 2 diabetes mellitus without complication, with no history of insulin use - E11.9???7.?Thyroid nodule - E04.1??? Plan: * Treatment: 2.?Essential hypertension?LAB: Complete Blood Count Auto Diff (Collection Date & Time - 05/20/2024 08:00 AM) ?LAB: Comprehensive [place]. Panel Fast (Collection Date & Time - 05/20/2024 08:00 AM) ?LAB: Microalbumin, Random (Collection Date & Time - 05/20/2024 08:00 AM) ?LAB: UA ClnCatch+Micro w/rflx Cult (Collection Date & Time - 05/20/2024 08:00 AM) ?LAB: Lipid Panel (Collection Date & Time - 05/20/2024 08:00 AM) ?LAB: PSA,Total (Free>4and<10) (Collection Date & Time - 05/20/2024 08:00 AM) ?LAB: TSH reflex Free T4 (Collection Date & Time - 05/20/2024 08:00 AM) ?LAB: Hemoglobin A1c (Collection Date & Time - 05/20/2024 08:00 AM) 3.?Pure hypercholesterolemia ?LAB: Complete Blood Count Auto Diff (Collection Date & Time - 05/20/2024 08:00 AM) ?LAB: Comprehensive [place]. Panel Fast (Collection Date & Time - 05/20/2024 08:00 AM) ?LAB: Microalbumin, Random (Collection Date & Time - 05/20/2024 08:00 AM) ?LAB: UA ClnCatch+Micro w/rflx Cult (Collection Date & Time - 05/20/2024 08:00 AM) ?LAB: Lipid Panel (Collection Date & Time 05/20/2024 08:00 AM) ?LAB: PSA,Total (Free>4and<10) (Collection Date & Time 05/20/2024 08:00 AM) ?LAB: TSH reflex Free T4 (Collection Date & Time 05/20/2024 08:00 AM) ?LAB: Hemoglobin A1c (Collection Date & Time 05/20/2024 08:00 AM) 4.?Elevated PSA?LAB: Complete Blood Count Auto Diff (Collection Date & Time 05/20/2024 08:00 AM) ?LAB: Comprehensive [place]. Panel Fast (Collection Date & Time 05/20/2024 08:00 AM) ?LAB: Microalbumin, Random (Collection Date & Time 05/20/2024 08:00 AM) ?LAB: UA ClnCatch+Micro w/rflx Cult (Collection Date & Time 05/20/2024 08:00 AM) ?LAB: Lipid Panel (Collection Date & Time 05/20/2024 08:00 AM) ?LAB: PSA,Total (Free>4and<10) (Collection Date & Time 05/20/2024 08:00 AM) ?LAB: TSH reflex Free T4 (Collection Date & Time 05/20/2024 08:00 AM) ?LAB: Hemoglobin A1c (Collection Date & Time 05/20/2024 08:00 AM) 5.?Neutropenia, unspecified type?LAB: Complete Blood Count Auto Diff (Collection Date & Time 05/20/2024 08:00 AM) ?LAB: Comprehensive [place]. Panel Fast (Collection Date & Time 05/20/2024 08:00 AM) ?LAB: Microalbumin, Random (Collection Date & Time 05/20/2024 08:00 AM) ?LAB: UA ClnCatch+Micro w/rflx Cult (Collection Date & Time 05/20/2024 08:00 AM) ?LAB: Lipid Panel (Collection Date & Time - 05/20/2024 08:00 AM) ?LAB: PSA,Total (Free>4and<10) (Collection Date & Time 05/20/2024 08:00 AM) ?LAB: TSH reflex Free T4 (Collection Date & Time 05/20/2024 08:00 AM) ?LAB: Hemoglobin A1c (Collection Date & Time 05/20/2024 08:00 AM) 6.?Type 2 diabetes mellitus without complication, with no history of insulin use?LAB: Complete Blood Count Auto Diff (Collection Date & Time 05/20/2024 08:00 AM) ?LAB: Comprehensive [place]. Panel Fast (Collection Date & Time 05/20/2024 08:00 AM) ?LAB: Microalbumin, Random (Collection Date & Time 05/20/2024 08:00 AM) ?LAB: UA ClnCatch+Micro w/rflx Cult (Collection Date & Time 05/20/2024 08:00 AM) ?LAB: Lipid Panel (Collection Date & Time 05/20/2024 08:00 AM) ?LAB: PSA,Total (Free>4and<10) (Collection Date & Time 05/20/2024 08:00 AM) ?LAB: TSH reflex Free T4 (Collection Date & Time 05/20/2024 08:00 AM) ?LAB: Hemoglobin A1c (Collection Date & Time 05/20/2024 08:00 AM) 7.?Thyroid nodule?LAB: Complete Blood Count Auto Diff (Collection Date & Time 05/20/2024 08:00 AM) ?LAB: Comprehensive [place]. Panel Fast (Collection Date & Time 05/20/2024 08:00 AM) ?LAB: Microalbumin, Random (Collection Date & Time 05/20/2024 08:00 AM) ?LAB: UA ClnCatch+Micro w/rflx Cult (Collection Date & Time 05/20/2024 08:00 AM) ?LAB: Lipid Panel (Collection Date & Time - 05/20/2024 08:00 AM) ?LAB: PSA,Total (Free>4and<10) (Collection Date & Time - 05/20/2024 08:00 AM) ?LAB: TSH reflex Free T4 (Collection Date & Time - 05/20/2024 08:00 AM) ?LAB: Hemoglobin A1c (Collection Date & Time - 05/20/2024 08:00 AM) * Procedure Codes:?30888 VENIP UNCT, ROUTINE* * * The named appointment provid er may or may not be the originator of this progress note, and it is not deemed complete until electronically signed by the appointment provider. Sign off status: Pending * Provider:?Chris Sanchez MD Date:?0 05/20/2024 Generated for Milli fabian/Neisha/Euniceitting on:?05/20/2024 12:30 PM EDT
--- OUTSIDE RECORDS SUMMARY | 2024-05-20 12:31 | XMS_ITS ---
Author Organization Chris Sanchez MD Address [address] [place] [phone] Care Team Providers Care Glue Spreading Machine Operator Name Role Phone Chris Sanchez Primary Care Provider REASON FOR VISIT refill Medications Medication SIG (Take, Route, Frequency, Duration) Notes Start Date End Date Status Levothyroxine Sodium 137 MCG 1 tablet in the morning on an empty stomach Orally Once a day for 90 days Active Encounters Encounter Location Date Provider Diagnosis Chris Sanchez MD [address] [place], [place] [phone] 02/23/2024 Chris Sanchez Plan Of Treatment Medication Medication Name Sig Start Date Stop Date Notes Levothyroxine Sodium 137 MCG 1 tablet in the morning on an empty stomach Orally Once a day for 90 days Next Appt Details Provider Name:Chris mojica, 05/27/2024 08:30:00 AM, [address], [address], [place], [phone], Progress Notes * SUMMER Shay RDOB:[birth year] (74 yo M)Acc No.[id number]:02/23/2024 Patient:?Shay Nowak :1950???Age:74 Y???Sex:Male Address:[address] [place] [address], [facility] [place] [phone] * Refills? Refill Levothyroxine Sodium Tablet, 137 MCG, Orally, 90, 1 tablet in the morning on an empty stomach, Once a day, 90 days, Refills=3 * true * Date:? Generated for Milli fabian/Neisha/Juan Asmitting on:?05/20/2024 12:31 PM EDT
--- OUTSIDE RECORDS SUMMARY | 2024-05-20 12:31 | XMS_ITS ---
Author Organization Chris Sanchez MD Address [address] [place] [phone] Care Team Providers Care Release Of Information Specialist Name Role Phone Chris Sanchez Primary Care Provider [phone] REASON FOR VISIT RF Zolpidem Medications Medication SIG (Take, Route, Fr equency, Duration) Notes Start Date End Date Status Zolpidem Tartrate 5 MG TAKE 1 TABLET BY MOUTH EVERY DAY FOR 90 DAYS Orally Once a day for 90 days 05/20/2024 Active Encounters Encounter Location Date Provider Diagnosis Chris Sanchez MD [address] [place] [phone] 05/20/2024 Chris Sanchez Plan Of Treatment Medication Medication Name Sig Start Date Stop Date Notes Zolpidem Tartrate 5 MG TAKE 1 TABLET BY MOUTH EVERY DAY FOR 90 DAYS Orally Once a day for 90 days 05/20/2024 Next Appt Details Provider Name:Chris Bowers ier, 05/27/2024 08:30:00 AM, [address] [place] [address], [address], [place], [place], [phone], Progress Notes * Shay WHEELER RDOB:[birth year] (74 yo M)Acc No.[id number]:05/20/2024 Patient:?Shay WHEELER :1950???Age:74 Y???Sex:Male Address:[address] [place] [address], [place] [phone] * Refills? Refill Zolpidem Tartrate Tablet, 5 MG, Orally, 90, TAKE 1 TABLET BY MOUTH EVERY DAY FOR 90 DAYS, Once a day, 90 days, Refills=0 * true * Date:? Generated for Milli fabian/Neisha/Euniceitting on:?05/20/2024 12:31 PM EDT
--- OUTSIDE RECORDS SUMMARY | 2024-05-20 12:31 | XMS_ITS | Continuity of Care Document ---
Author Organization [facility] Address [address] [place] [phone] Care Team Providers Care Director Bioinformatics Name Role Phone Laura WHITEHEAD, Chris Primary Care Physician [phone] [place] [facility] [place] 04/24/24 [facility] [address] [place] [id number] Encounter Type: Triage Allergies, Adverse Reactions, Alerts Substance Criticality Severity Reaction Reaction Severity Status atorvastatin myalgia Active Nuts almonds-fuzzy/ swelling tongue Active Medications Claritin 10 mg oral tablet 10 mg, 1, tablet, By Mouth, Daily, # 30 tablet, Refills 0, Maintenance, 09/17/23 8:50:00 PM EDT, Partial fill upon patient request if the prescription is for a schedule II opioid drug. Start Date: 09/17/23 Status: Ordered Quantity: 30.0 Unit: tablet Repeat number: 1 Gabapentin By Mouth, 0 Refills, Maintenance, 03/14/24 8:07:00 AM EST, Partial fill upon patient request if the prescription is for a schedule II opioid drug. Start Date: 03/14/24 Status: Ordered Repeat number: 1 hydrochlorothiazide-lisinopril 12.5 mg-20 mg oral tablet 2 tablet, 0 Refills, Maintenance, 09/16/23 12:06:00 PM EDT, Partial fill upon patient request if theprescription is for a schedule II opioid drug. Start Date: 09/16/23 Status: Ordered Repeat number: 1 Ibuprofen Tablet 800 mg, By Mouth, 3 times a day, PRN, Soft Stop, Pain , Mild, 08/06/08 10:44:23 AM EDT Start Date: 08/06/08 Stop Date: 08/20/08 Status: Ordered Repeat number: 1 levothyroxine 0.137 mg oral tablet 1 tablet = 137 mcg, By Mouth, Daily, # 30 tablet, 1 Refills, Maintenance, 01/07/24 1:00:00 PM EDT, Tablet, [facility]/pharmacy #[id number], Partial fill upon patient request if the prescription is for a schedule II opioid drug., 168, cm, 01/07/24 12:31:00 EDT, Height, 87.8, kg, 12/14/23 11:43:00 EDT, Dry Weight Start Date: 01/07/24 Stop Date: 03/07/24 Status: Ordered Quantity: 30.0 Unit: tablet Repeat number: 2 MiraLax = 17 Gm, By Mouth, Daily, 0 Refills, Maintenance, 09/17/23 8:48:00 PM EDT, Partial fill upon patientrequest if the prescription is for a schedule II opioid drug. Start Date: 09/17/23 Status: Ordered Repeat number: 1 Probiotic Formula 1 capsule, By Mouth, Daily, 0 Refills, Maintenance, 12/10/23 9:39:00 AM EDT, Partial fill upon patient request if the prescription is for a schedule II opioid drug. Start Date: 12/10/23 Status: Ordered Repeat number: 1 simvastatin 80 mg oral tablet 1 tablet = 80 mg, By Mouth, Daily at bedtime, 0 Refills, Soft Stop, 08/06/08 10:40:58 AM EDT Start Date: 08/06/08 Stop Date: 09/04/08 Status: Ordered Repeat number: 1 Vitamin D3 oral tablet 1 tablet = 10 mcg, By Mouth, Daily, # 30 tablet, 0 Refills, Maintenance, 12/10/23 9:40:00 AM EDT, Tablet, Partial fill upon patient request if the prescription is for a schedule II opioid drug. Start Date: 12/10/23 Status: Ordered Quantity: 30.0 Unit: tablet Repeat number: 1 Zolpidem = 10 mg, By Mouth, Daily at bedtime, 0 Refills, Maintenance, 08/20/23 2:34:00 PM EDT, Partial fill upon patient request if the prescription is for a schedule II opioid drug. Start Date: 08/20/23 Status: Ordered Repeat number: 1 Problem List Condition Confirmation Course Effective Dates Status H ealth Status Informant Diabetes Confirmed Active Dyslipidemia Confirmed Active Gallstone Confirmed Active History of nasal/orbit fracture in trauma Confirmed Active Childhood murmur Confirmed Active History of hematuria Confirmed Active History of prostate cancer 1 Confirmed Active Hypertension Confirmed Active Insomnia Confirmed Active Obese class I Confirmed Active JAN (obstructive sleep apnea) Confirmed Active Osteoarthritis Confirmed Active 1XRT Social History Social History Type Response Smoking Status Former smoker, quit more than 30 days ago; Tobacco user in household: No entered on: 01/19/18 Sex Sex Representation Male (finding) Patient Care team information Care Team Personnel Name: Chris Sanchez MD Position: Reference Physician Member Role: PCP Address: [address] [place] [address] Chris Sanchez MD [place], [place] [address] Telecom: [phone] Care Team Related Persons Name: EDWIN WHEELER Insurance Providers Guarantor name: PHYLLIS WHEELER Health Plan Information #: 1 Payer: CHRISTINE Member Number: NA Policy Number: NA Group Number: NA
== END 2024-05-20 10:53 | disposition home or self-care (01) ==
LOC: HO.LNP 10:52
PROVIDERS: Visit Provider Internal Medicine
DX: Z00.00 Encounter for general adult medical examination without abnormal findings (principal); R97.20 Elevated prostate specific antigen [PSA]; D70.9 Neutropenia, unspecified; E11.9 Type 2 diabetes mellitus without complications; E04.1 Nontoxic single thyroid nodule; Z12.5 Encounter for screening for malignant neoplasm of prostate
CPT/HCPCS: 80053; 80061; 81001; 82043; 82570; 83036; 84153; 84443; 85025

== ENCOUNTER 2024-06-24 10:21 | Outpatient (REF) | payer MEDICARE, SELFPAY ==
[2024-06-24 10:23] LABS: MANUAL DIFF FLAG NO
[2024-06-24 10:48] LABS: Eosinophils Absolute Auto 0.2 X10*3/uL (0.0-0.4); Eosinophils Percent Auto 4.6 % (0-4); Hematocrit 36.1 % (42.0-52.0); Hemoglobin 12.7 g/dl (14.0-18.0); Imm Gran Abs Auto 0.02 X10*3/uL (0.00-0.03); Imm Gran Pct Auto 0.5 % (0.0-0.4); Lymphocytes Absolute Auto 0.8 X10*3/uL (1.2-4.9); Lymphocytes Percent Auto 19.5 % (20-40); Mean Corpuscular HGB Conc 35.2 g/dl (31.0-36.0); Mean Corpuscular Hemoglobin 31.9 pg (27.0-33.0); Mean Corpuscular Volume 90.7 fL (80.0-98.0); Mean Platelet Volume 10.1 fL (9.4-12.4); Monocytes Absolute Auto 0.3 X10*3/uL (0.1-1.2); Monocytes Percent Auto 7.9 % (2-11); Neutrophils Absolute Auto 2.8 x10*3/uL (2.0-8.3); Neutrophils Percent Auto 66.5 % (45-73); Platelet Count 186 X10*3/uL (160-400); Red Blood Count 3.98 X10*6/uL (4.60-5.80); Red Cell Distribution Width 12.6 % (11.0-16.0); White Blood Count 4.2 X10*3/uL (4.8-10.8)
--- OUTSIDE RECORDS SUMMARY | 2024-06-24 11:15 | XMS_ITS ---
Author Organization Chris Sanchez MD Address [address] [place] [phone] Care Team Providers Care Audio Engineer Name Role Phone Chris Sanchez Primary Care Provider Results Component Value Reference Range Notes Complete Blood Count Auto Di ff (Not yet reviewed by provider) Interpretation: Performing Lab:[facility], [address] [place] [phone] Notes/Report: White Blood Count 4.2 4.8-10.8 X10*3/uL [...] Location Date Provider Diagnosis Chris Sanchez MD [address] [place] [phone] 06/24/2024 Chris Sanchez Neutropenia D70.9 Assessments Encounter Date Diagnosis (ICD Code) Assessment Notes Treatment Notes Treatment Clinical Notes Section Notes 06/24/2024 Neutropenia (ICD-10 - D70.9) Plan Of Treatment Pending Test Test Name Order Date Complete Blood Count Auto Diff Next Appt Details Provider Name:Chris mojica, 08/26/2024 10:15:00 AM, [address] [place] [address], [address], [phone], Provider Name:Chris mojica, 11/18/2024 07:45:00 AM, [address] [place] [address], [address], [phone], Provider Name:Chris mojica, 05/22/2025 07:30:00 AM, [address] [place] [address] [address], [place], [phone], Provider Name:Chris Bowers ier, 05/29/2025 09:30:00 AM, [address] [facility], [address], [place], [phone], Progress Notes * Shay WHEELER RDOB:[birth year] (74 yo M)Acc No.[id number]:06/24/2024 Progress Note Patient:?Shay WHEELER Provider:?Chris Sanchez MD :1950???Age:74 Y???Sex:Male Everette e:06/24/2024 Address:[address] [place] [address], [facility] HERBERT [phone] Subjective: * Chief Complaints: * ???1. CBC AUTO DIFF. * Medical History:? Objective: * Vitals:? Assessment: * Assessment: 1.?Neutropenia - D70.9 (Prim yi)??? Plan: * Treatment: * Procedure Codes:?40980 VENIP UNCT, ROUTINE* * * The named appointment provid er may or may not be the originator of this progress note, and it is not deemed complete until electronically signed by the appointment provider. Sign off status: Pending * Provider:?Chris Sanchez MD Date:?0 06/24/2024 Generated for Milli fabian/Neisha/eTsarismitting on:?06/24/2024 11:15 AM EDT
--- OUTSIDE RECORDS SUMMARY | 2024-06-24 11:15 | XMS_ITS | Patient Health Record ---
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 Name Role Phone Chris Sanchez Primary Care Provider [phone] Allergies Allergen (clinical drug ingredient) Drug/Non Drug Allergy documented on EMR Reaction Allergy Type Onset Date Status atorvastatin Lipitor myalgia Drug Allergy Acti ve Results Component Value Reference Range Notes Hemoglobin A1c Reviewed date:11/02/2023 10:05:01 AM Interpretation: Performing Lab: Notes/Report: Hemoglobin A1c 5.8 Liver Panel Reviewed date:01/08/2024 05:06:39 PM Interpretation: Performing Lab:[facility], [address] [place] [phone] Notes/Report: Bilirubin Total 0.4 0.0-1.0 mg/dL Bilirubin Direct 0.1 0.0-0.5 mg/dL Aspartate Amino Transferase 31 5-37 U/L Alanine Aminotransferase 31 0-40 U/L Total Protein 7.2 6.5-8.0 g/dL Albumin Level 4.2 3.5-5.0 g/dL Alkaline Phosphatase 52 39-117 U/L Glucose Fasting Reviewed date:01/08/2024 05:16:02 PM Interpretation: Performing Lab:[facility], [address] [place] [phone] Notes/Report: Glucose Fasting 113 60-99 mg/dL A fasting glucose from 100-125 mg/dl is considered impaired (pre-diabetes). Lipid Panel with Reflex Reviewed date:01/08/2024 05:16:12 PM Interpretation: Performing Lab:[facility], [address] [place] [phone] Notes/Report: Triglycerides 107 <150 mg/dL Desirable Triglyceride: less than 150 mg/dL Borderline High Triglyceride 150-199 mg/dL High Triglyceride: 200-499 mg/dL Very High Triglyceride: greater than or equal to 5OO mg/dL Cholesterol 165 <200 mg/dL Desirable Cholesterol: less than 200 mg/dL Borderline High Cholesterol: 200-239 mg/dL High Cholesterol: greater than 239 mg/dL LDL Cholesterol Calculated 94 <100 mg/dL Desirable LDL: less than 100 mg/dL Near Optimal/Above Optimal LDL: 110-129 mg/dL Borderline High LDL: 130-159 mg/dL High LDL: 160-189 mg/dL Very High LDL: greater than or equal to 190 mg/dL HDL Cholesterol 50 >40 mg/dL Desirable HDL: greater than 40 mg/dL Note: This HDL assay may give artificially low results in patients with liver disease. Hemoglobin A1c Reviewed date:01/08/2024 12:50:06 PM Interpretation: Performing Lab:[facility], [address] [place] [phone] Notes/Report: Hemoglobin A1c % 5.6 <6.0 % Hemoglobin A1C Reference Range Adults: 4.8 - 6.0 % Non diabetic: < 6.0 % Goal: < 7.0 % Additional Action Suggested: > 8.0 % Note: Hemoglobin A1c results are invalid for patients with abnormal amounts of HbF. Blood transfusions may impact the HbA1c concentration in the patient sample. Estimated Average Glucose 114 eAG = Estimated average glucose which is %A1C expressed as average glucose, using the formula of the B7M-Zayedbv Average Glucose study (ADAG), Diabetes Care, Vol.31,#8, 2007 Complete Blood Count Auto Di ff Reviewed date:06/24/2024 09:53:02 AM Interpretation:06-24-2024 Performing Lab:[facility], [address] [place] [phone] Notes/Report: White Blood Count 3.8 4.8-10.8 X10*3/uL [...] NRBC Abs Auto 0.000 0.0-0.012 X10*3/uL Comprehensive [place]. Panel Fa st Reviewed date:05/20/2024 05:03:09 PM Interpretation: Performing Lab:[facility], [address] [place] [phone] Notes/Report: Sodium 143 135-145 mmol/L Potassium 4.0 [...] 3.5-5.0 g/dL Alkaline Phosphatase 48 39-117 U/L Lipid Panel Reviewed date:05/20/2024 12:15:55 PM Interpretation: Performing Lab:[address] [phone] Notes/Report: Triglycerides 113 <150 mg/dL Desirable Triglyceride: [...] (Free>4and<10) Reviewed date:05/20/2024 12:11:38 PM Interpretation: Performing Lab:[address] [phone] Notes/Report: PSA,Total (Free>4and<10) < 0.10 0.00-4.00 ng/mL [...] T4 Reviewed date:05/20/2024 12:15:47 PM Interpretation: Performing Lab:[address] [phone] Notes/Report: TSH reflex Free T4 3.49 0.32-4.0 uIU/mL Microalbumin, Random Reviewed date:05/20/2024 05:06:43 PM Interpretation: Performing Lab:[facility], [address] [place] [phone] Notes/Report: Creatinine Urine 86.97 Microalbumin Urine 6.0 Microalbum/Creatinine Ratio Ur 6.8 <30 ug/mg cr Albumin/Creatinine Ratio Reference Ranges: Normal: < 30 ug/mg creatinine Microalbuminuria: 30 - 300 ug/mg creatinine Clinical Albuminuria: > 300 ug/mg creatinine Hemoglobin A1c Reviewed date:05/20/2024 12:17:15 PM Interpretation: Performing Lab:[facility], [address] [place] [phone] Notes/Report: Hemoglobin A1c % 5.5 <6.0 % [...] average glucose, using the formula of the O2K-Xidjskr Average Glucose study (ADAG), Diabetes Care, Vol.31,#8, 2007 UA ClnCatch+Micro w/rflx Cul t Reviewed date:05/20/2024 05:07:53 PM Interpretation: Performing Lab:[facility], [address] [place] [phone] Notes/Report: Urine, Clean Catch Color Urine Yellow Appearance Urine Clear PH 6.0 5.0-9.0 Glucose Urine UA Negative Negative mg/dL Urine Blood Negative Negative Specific Ashley - Urine 1.015 1.005-1.025 Urine Protein Negative Neg-Trace mg/dL Urine Ketones Negative Negative mg/dL Nitrite Urine Negative Negative Leukocyte Esterase Urine Negative Negative RBC Urine 0-2 0-2 /HPF WBC Urine 0-5 0-5 /HPF Squamous Epithelial Cell Urine 0-2 0-2 /HPF Bacteria Urine None Seen None Seen Hyaline Casts Urine 0-2 0-2 /LPF Complete Blood Count Auto Di ff (Not yet reviewed by provider) Interpretation: Performing Lab:[facility], [address] [place] [phone] Notes/Report: White Blood Count 4.2 4.8-10.8 X10*3/uL [...] X10*3/uL NRBC Abs Auto 0.000 0.0-0.012 X10*3/uL Glucose, finger stick Reviewed date:11/02/2023 09:56:02 AM Interpretation: Performing Lab: Notes/Report: Value 105 Pathology Reviewed date:07/31/2023 04:14:32 PM Interpretation:provider spoke with pathologist Performing Lab:[facility], [address] [place] [phone] Notes/Report: -- ---- Name: Shay Nowak Delmy Age/Sex: 73/M : 1950 Unit#: [id number] Attend Dr: Chris Sanchez MD Re06/30/23 Status : DEP REF Location: [facility] Disch: -- ---- SPEC : [id number] RECD : 07/01/23-1230 STATUS: JANICE MCGEE NUM: [id number] KENDAL: 06/30/23-[address] [facility] [address]: Travon Roberts MD ENTERED: 07/01/23-21 08 SP TYPE: Cytology OTHR DR: Chris Sanchez MD ORDERED: Cell Block, Fine Ndl Asp/2 Addendum Addendum 1 Entered: 07/28/23-154 Afirma Test Results: - AFIRMA GSC (genomi c sequencing structures assembler): Suspicious; NRAS identified (risk of malignancy 75%) See entire report in the Laboratory/Pathology section of the patient's EMR. A copy of the report has been sent to the ordering provider's office. [facility] [place] [facility] [place] CLIA#[id number], #[id number] Addendum Signed (signature on file) Saritha Obrien MD 07/28/23 1543 -- ---- Diagnosis A. Thyroid, right lower pole, fine needle aspiration: Benign (Vernon category II). B. Thyroid, left low er pole, fine needle aspiration: Atypia of undetermined significance ([place] category III). COMMENT (A): Review of the cytology preparation demonstrates a cellular specimen composed of groups o f benign-appearing follicular cells, oncocytic/Hurthle cells and macrophages consiste nt with a benign follicular nodule. COMMENT (B): Review of the cytology preparation demonstrates a cellular specimen composed of groups o f follicular cells mostly with Hurthle cell features, some with mild cytologic atypia and scant colloid. The cell block shows similar findings. An Afirma sample will be sent out for additional molecular studies. Clinical History Bilateral thyroid nodules CONTINUED ON NEXT PAGE -- ---- Name: Shay Nowak Age/Sex: 73/M : 1950 Unit#: [id number] Attend Dr: Chris Sanchez MD Re06/30/23 Status : DEP REF Location: [facility] Disch: -- ---- SPEC : [id number] RECD : 07/01/23-1230 STATUS: [facility] NUM: [id number] KENDAL: 06/30/23-[address] [facility] [address]: Travon Roberts MD ENTERED: 07/01/23- 06 SP TYPE: Cytology OTHR DR: Chris Sanchez MD ORDERED: Cell Block, Fine Ndl Asp/2 Material Received A. FNA of right lowe r pole thyroid nodule B. FNA of left lower pole thyroid nodule Gross Description A. Received are 30 c c of bloody CytoLyt fluid from which a ThinPrep slide is prepared. B. Received are 30 c c of bloody CytoLyt fluid from which a ThinPrep slide and cell block are prepared. Copies To: Chris Sanchez MD [address] [place] [id number] Travon Roberts MD [address] [place] [phone] -- ---- Signed (signature on file) Saritha Obrien MD 07/07/23 1422 -- ---- END OF REPORT US biopsy thyroid Reviewed date:06/30/2023 05:58:52 PM Interpretation: Performing Lab: Notes/Report: [address] [address] Ultrasound Report Signed Patient: Shay Nowak MR#: [id number] 753 : 1950 Acct:[id number] Age/Sex: 73 / M ADM Date: 06/30/23 Loc: .US Attending Dr: Chris Sanchez MD Ordering Physician: Chris Sanchez MD Date of Service: 06/30/23 Procedure(s): US biopsy thyroid Accession Number(s): [id number] cc: Chris Sanchez MD PROCEDURE: US BIOPSY THYROID CLINICAL INFORMATION: Bilateral thyroid nodules COMPARISON: 06/09/23 thyroid ultrasound TECHNIQUE/FINDINGS: Informed consent was obtained following discussion of the risks and benefits of the procedure with the patient. The patient was placed supine on the ultrasound procedure table. Preliminary ultrasound demonstrates bilateral heterogeneous nodules in concordance with recent ultrasound findings. The right side was addressed first. Following the administration of 1% lidocaine for local anesthesia, 3 FNA samples of the right thyroid nodule were obtained utilizing a 22-gauge needle. Then the left side was addressed. Following the administration of 1% lidocaine for local anesthesia, 3 FNA samples of the left lower pole thyroid nodule were obtained utilizing a 22-gauge needle. Postprocedure ultrasound image does not demonstrate any evidence of bleeding or other complication. The patient tolerated procedure well. US/US biopsy thyroid IMPRESSION: FNA of bilateral thyroid nodules Dictated By: Travon Roberts MD Signed By: <Electronically signed by Travon Roberts MD in OV> 06/30/23 1510 DD/ 1353 TD/TT: Digital Hardware Design Engineer: [address] [address] Ultrasound Report Signed Patient: Manuel Nowak MR#: [id number] 753 : 1950 Acct:[id number] Age/Sex: 73 / M ADM Date: 06/30/23 Loc: HO.US Attending Dr: Chris Sanchez MD Ordering Physician: Chris Sanchez MD Date of Service: 06/30/23 Procedure(s): US biopsy thyroid Accession Number(s): [id number] cc: Chris Sanchez MD PROCEDURE: US BIOPSY THYROID CLINICAL INFORMATION: Bilateral thyroid nodules COMPARISON: 06/09/23 thyroid ultrasound TECHNIQUE/FINDINGS: Informed consent was obtained following discussion of the risks and benefits of the procedure with the patient. The patient was placed supine on the ultrasound procedure table. Preliminary ultrasound demonstrates bilater al heterogeneous nodules in concordance with recent ultrasound findings. The right side was addressed first. Following the administration of 1% lidocaine for local anesthesia, 3 FNA samples of the right thyroid nodule were obtained utilizing a 22-gauge needle. Then the left side w as addressed. Following the administration of 1% lidocaine for local anesthesia, 3 FNA samples of the left lower pole thyroid nodule were obtained utilizing a 22-gauge needle. Postprocedure ultrasound image burris s not demonstrate any evidence of bleeding or other complication. The patient tolerated procedure well. US/US biopsy thyroid IMPRESSION: FNA of bilateral thyroid nodules Dictated By: Travon Roberts MD Signed By: <Electronically signed by Travon Roberts MD in OV> 06/30/23 1510 DD/ 1353 TD/TT: Digital Hardware Design Engineer: Jeffry Villalta Reviewed date:01/08/2024 11:58:42 AM Interpretation: Performing Lab:[facility], [address] [place] [phone] Notes/Report: Jeffry Villalta See Note Specimen held untested for 24 hours; Call to request Chemistry testing. Reason For Referral Reason left thyroid nodule Diagnosis 1 Left thyroid nodule (E04.1) Referral Organization Chris Sanchez MD Referring Provider First Name Chris Referring Provider Last Name Laura Referring Provider Speciality Internal M edicine Referred Provider [facility], Endocrinol ogy Referred Provider Specialty Endocrinolog y General Notes Ladonna Farias 02:14:21 PM EDT > all info faxed to [facility] appt request , Ladonna Farias 08/10/2023 01:09:18 PM EDT > called office for an update on appt was told all info would be reviewed by the surgeon and they will contact the patient. The patient was called with above info and he will call us back with his appt date and time , Ladonna Farias 08/13/2023 02:51:44 PM EDT > info faxed to [facility] End[facility] , Ldaonna Farias 08/17/2023 02:21:27 PM EDT > info was refaxed tp [facility] p [phone] Referral Priority Routine Referral Appointment Date 08/20/2023 Reason SCREEN FOR COLON CAN CER Diagnosis [...] Brenna Champagne 06/03/2024 10:34:16 AM >APPT SCHEDULED 09/15/24 AT 10:20AM Referral Priority Routine Referral Appointment Date 09/15/2024 Medications Medication SIG (Take, Route, Frequency, Duration) [...] Once a day for 90 days Active Claritin 10 MG 1 tablet Orally Once a day for 30 day(s) Active Lisinopril-hydroCHLOROthia zide 20-12.5 MG TAKE 1 TABLET TWICE A DAY for 90 Active IBU 800 MG TAKE 1 TABLET THREE TIMES ADAY NEEDED for 90 Active Sildenafil Citrate 100 MG 1/2 tablet as needed Orally Once a day for 30 day(s) 09/28/2020 Not-Taking Immunizations Vaccine Route Administration Date Status Comme nts Flu Vaccine IM Intramuscular 12/31/2010 Administered Flu Vaccine IM Intramuscular 12/01/2011 Administered Flu Vaccine IM Intramuscular 12/25/2012 Administered [facility] Fluarix Quadrivalent IM Intramuscular 11/10/2013 Administe red Fluarix Quadrivalent IM Intramuscular 11/24/2014 Administe red PPSV23 (Pnemovax) IM Intramuscular 12/22/2014 Administered Fluarix Quadrivalent IM Intramuscular 2016 Administe red Prevnar 13 IM Intramuscular 02/14/2016 Administered Fluarix Quadrivalent Unknown 02/03/2017 Administered [facility] Fluarix Quadrivalent Unknown 01/19/2018 Administered pt was given the vaccine at [facility]. Fluarix Quadrivalent Unknown 02/21/2019 Administered [facility] Influ[facility] High Dose Unknown 12/27/2019 Administered [facility] PPSV23 (Pnemovax) IM Intramuscular 09/28/2020 Administered SARS-COV-2 Pfizer Unknown 05/20/2020 Administered SARS-COV-2 Pfizer Unknown 06/10/2020 Administered Influenza High Dose IM Intramuscular 01/28/2021 Administer ed SARS-COV-2 Moderna Unknown 02/19/2021 Administered Influenza High Dose IM Intramuscular 11/18/2021 Administer ed Influenza High Dose IM Intramuscular 11/28/2022 Administer ed Influenza High Dose IM Intramuscular 01/08/2024 Administer ed zInfluenza Unknown 11/10/2013 Pending Flu Vaccine Unknown 11/10/2013 Pending Social History Tobacco Use: Social History Observation [...] Problem Status W/U Status Risk Notes Problem Thyroid nodule (190938688) Thyroid nodule (E04.1) Active confirmed Problem Neutropenia (752795820) Neutropenia (D70.9) Active confirmed Problem 45449536 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 Problem 2500570 Primary insomnia (F51.01) Active confirmed Problem 390735749 Tubular adenoma of colon (D12.6) Active confirmed Problem 13812505 Essential hypert ension (I10) Active confirmed Problem 241671103 Prostate cancer (C61) Active confirme d Problem 813556849 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) Active confirmed Problem 681811086 History of hemat uria (Z87.448) Active confirmed Problem 206062432 Neutropenia, unspecified type (D70.9) Active confirmed Problem 940258333 Erectile dysfunc tion following radiation therapy (N52.35) Active confirmed Problem 233300664 Pure hypercholesterolemia (E78.00) Active confirmed Problem 936893318 Elevated PSA (R97.20) Active confirme d Problem Obstructive sleep apnea syndrome (69295670) JAN (obstructive sleep apnea) (G47.33) Active confirmed Problem 949841155 BMI 34.0-34.9,ad ult (Z68.34) Active confirmed Problem 479830213 Type 2 diabetes mellitus without complication, with no history of insulin use (E11.9) Active confirmed Problem 366473615 Cancer of thyroid (C73) Active confir med Vital Signs Blood pressure diastolic 60 mm Hg 05/27/2024 Height 65.5 in 05/27/2024 Blood pressure systolic 128 mm Hg 05/27/2024 Weight 200 lbs 05/27/2024 BMI 32.77 kg/m2 05/27/2024 Encounters Encounter Location Date Provider Diagnosis Chris Sanchez MD [address] [place] [address] Drive [address] [place] [id number] 01/08/2024 Chris Sanchez Pure hypercholestero lemia E78.00 ; Encounter for immunization Z23 and Type 2 diabetes mellitus without complication, with no history of insulin use E11.9 Chris Sanchez MD [address] [place] [address] Drive [address] [place] [id number] 05/20/2024 Chris Sanchez Blood tests for rout ine general physical examination Z00.00 ; Essential hypertension I10 ; Pure hypercholesterolemia E78.00 ; Elevated PSA R97.20 ; Neutropenia, unspecified type D70.9 ; Type 2 diabetes mellitus without complication, with no history of insulin use E11.9 and Thyroid nodule E04.1 Chris Sanchez MD [address] [place] [id number] 06/24/2024 Chris Sanchez Neutropenia D70.9 Chris Sanchez MD [address] [place] [id number] 07/10/2023 Chris Sanchez Thyroid nodule E04.1 and Primary insomnia F51.01 Chris Sanchez MD [address] [place] [id number] 07/31/2023 Chris Sanchez Lipoma of right uppe r extremity D17.21 and Left thyroid nodule E04.1 Chris Sanchez MD [address] [place] [id number] 11/02/2023 Chris Sanchez Type 2 diabetes heidy itus without complication, with no history of insulin use E11.9 ; Cancer of thyroid C73 and Essential hypertension I10 Chris Sanchez MD [address] [place] [id number] 01/14/2024 Chris Sanchez Type 2 diabetes heidy itus without complication, with no history of insulin use E11.9 ; Pure hypercholesterolemia E78.00 and History of thyroidectomy E89.0 Chris Sanchez MD [address] [place] [id number] 05/27/2024 Chris Sanchez Cancer of thyroid C7 3 ; Annual physical exam Z00.00 ; Type 2 diabetes mellitus without complication, with no history of insulin use E11.9 ; Pure hypercholesterolemia E78.00 ; Neutropenia D70.9 ; Rectal bleeding K62.5 ; Essential hypertension I10 ; Colon cancer screening Z12.11 and Depression screening Z13.31 Chris Sanchez MD [address] [place] [id number] 07/16/2023 Chris Sanchez MD [address] [place] [id number] 07/28/2023 Chris Sanchez MD [address] [place] [id number] 08/21/2023 Chris Sanchez MD [address] [place] [id number] 11/10/2023 Chris Sanchez Essential hypertensi on I10 and Arthritis of knee 716.96 Chris Sanchez MD [address] [place] [id number] 11/13/2023 Chris Sanchez MD [address] [place] [id number] 02/23/2024 Chris Sanchez MD [address] [place] [id number] 05/20/2024 Chris Sanchez MD [address] [place] [id number] 07/09/2023 Chris Sanchez Primary insomnia F51 .01 Assessments Encounter Date Diagnosis (ICD Code) Assessment Notes Treatment Notes Treatment Clinical Notes Section Notes 01/08/2024 Pure hypercholesterolemia (ICD-10 - E78.00) 01/08/2024 Encounter for immunization (ICD-10 - Z23) 05/20/[address] ine general physical examination (ICD-10 - Z00.00) 06/24/2024 Neutropenia (ICD-10 - D70.9) 07/10/2023 Thyroid nodule (ICD- 10 - E04.1) needs repeat biopsy of thyroid/ irder faxed to [facility] CS dept/ US dept will be called to booked 07/10/2023 Primary insomnia (ICD-10 - F51.01) 07/31/2023 Lipoma of right uppe r extremity (ICD-10 - D17.21) will observe 07/31/2023 Left thyroid nodule (ICD-10 - E04.1) will refer to dr hale at [facility]/ have reviewed the results of test with him and his and explained that they suggest a 75% chance of thyroid cancer. he wants to get it removed. have said that at times they would put him on suppressive thyroid if positive, Total time spent on the date of the encounter is 35 minutes including both face to face time spent and time spent reviewing documentation, studies and counseling the patient. 11/02/2023 Type 2 diabetes mellitus without complication, with no history of insulin use (ICD-10 - E11.9) stable, will continue to monitor 11/02/2023 Cancer of thyroid (ICD-10 - C73) 01/14/2024 Type 2 diabetes mellitus without complication, with no history of insulin use (ICD-10 - E11.9) good a1c and the weight is up from being under active, will continue to monitor 01/14/2024 Pure hypercholesterolemia (ICD-10 - E78.00) stable, at goal, will continue current regiment 05/27/2024 Cancer of thyroid (ICD-10 - C73) need note from dr allison and need pet scan/PHONE CALL IN TO [facility] RECORDS FOR DOCS 05/27/2024 Annual physical exam (ICD-10 - Z00.00) labs reviewed and discussed with patient 11/10/2023 Essential hypertensi on (ICD-10 - I10) 07/09/2023 Primary insomnia (ICD-10 - F51.01) 01/08/2024 Type 2 diabetes mellitus without complication, with no history of insulin use (ICD-10 - E11.9) 05/20/2024 Essential hypertensi on (ICD-10 - I10) 11/02/2023 Essential hypertensi on (ICD-10 - I10) stable, will continue current regiment 01/14/2024 History of thyroidectomy (ICD-10 - E89.0) need results of thyroid surgery at [facility]. dr pena is going to see endocrine in 2 weeks/ REQUEST MADE TO HIM@ [facility] FOR DOCUMENTS 05/27/2024 Type 2 diabetes mellitus without complication, with no history of insulin use (ICD-10 - E11.9) well controlled, will continue current regiment 11/10/2023 Arthritis of knee (ICD9-CM - 716.96) 05/20/2024 Pure hypercholesterolemia (ICD-10 - E78.00) 05/27/2024 Pure hypercholesterolemia (ICD-10 - E78.00) doing well on meds, will continue current regiment 05/20/2024 Elevated PSA (ICD-10 - R97.20) 05/27/2024 Neutropenia (ICD-10 - D70.9) is probably related to the MOLINA 05/20/2024 Neutropenia, unspecified type (ICD-10 - D70.9) 05/27/2024 Rectal bleeding (ICD -10 - K62.5) will get colonoscopy this year. arrange with dr garcia 05/20/2024 Type 2 diabetes mellitus without complication, with no history of insulin use (ICD-10 - E11.9) 05/27/2024 Essential hypertensi on (ICD-10 - I10) stable, will continue current regiment 05/20/2024 Thyroid nodule (ICD- 10 - E04.1) 05/27/2024 Colon cancer screeni ng (ICD-10 - Z12.11) guaiac equivical 05/27/2024 Depression screening (ICD-10 - Z13.31) negative screen Plan Of Treatment Pending Test Test Name Order Date Electrocardiogram (EKG) 02/26/2017 Electrocardiogram (EKG) 03/11/2018 Electrocardiogram (EKG) 01/23/2015 Electrocardiogram (EKG) 02/14/2016 CT LUMBAR SPINE NO CONTRAST 02/14/2016 US THYROID BIOPSY FNA GUIDE 06/12/2023 US THYROID BIOPSY FNA GUIDE 07/10/2023 TSH reflex Free T4 01/14/2024 US thyroid 05/26/2023 Complete Blood Count Auto Diff 5 Next Appt Details Provider Name:Chris mojica, 08/26/2024 10:15:00 AM, [address] [place] [address], [address], [phone], Provider Name:Chris whit[place]r, 11/18/2024 07:45:00 AM, [address] [place] [address], [address], [phone], Provider Name:Chris mojica, 05/22/2025 07:30:00 AM, [address] [place] [address], [address], [phone], Provider Name:Chris whit[place]r, 05/29/2025 09:30:00 AM, [address] [place] [address], [address], [phone], Insurance Providers Payer Name Payer Address Payer Phone Subscriber Number Group Number Insured Name Patient Relationship to Insured Coverage Start Date Coverage End Date [employer] [address] [place], [place] [phone] [id number] Shay Nowak Self - patient is the insured MEDICARE [address] [place] [address] [id number] Shay Nowak Self - patient is the insured 7 Medical (General) History Medical History History ICD Code HEMATURIA WORKED UP BY DR SALTER COLONOSCOPY 2005 due in 2010 colonoscopy 05/05/12, repeat in 5 years; Colonoscopy done by Dr. Garcia on 10/10/19 - repeat 5 years prostate biopsied 09/2015 for rising PSA - negative; second prostate biopsy done 11/12/16 Prediabetes R73.09
--- OUTSIDE RECORDS SUMMARY | 2024-06-24 11:15 | XMS_ITS ---
Author Organization Chris Sanchez MD Address [address] [place], [place] [phone] Care Team Providers Care Dot Compliance Specialist Name Role Phone Chris Sanchez Primary Care Provider [phone] Allergies Allergen (clinical drug ingredient) Drug/Non Drug [...] Speciality Internal M edicine Referred Provider Quan Shrestha Referred Provider Specialty Gastroentero logy General Notes Brenna Champagne 05/27/2024 08:59:27 AM >MR KYLE IS DUE FOR COLONOSCOPY , FAX REFFERAL TO DR SHRESTHA OFFICE, Brenna Champagne 06/03/2024 10:34:16 AM >APPT [...] Status W/U Status Risk Notes Problem Neutropenia (768910926) Neutropenia (D70.9) Active confirmed Vital Signs Blood pressure systolic 128 mm Hg 05/28/19 25 Blood pressure diastolic 60 mm Hg 025 Height 65.5 in 05/27/2024 Weight 200 lbs 05/27/2024 BMI 32.77 kg/m2 05/27/2024 Encounters Encounter Location Date Provider Diagnosis Chris Sanchez MD [address] [place], [place] [phone] 05/27/2024 Chris Sanchez Cancer of thyroid C7 [...] get colonoscopy this year. arrange with dr shrestha 05/27/2024 Essential hypertensi on (ICD-10 - I10) [...] get colonoscopy this year. arrange with dr shrestha Essential hypertension stable, will cont inue current regiment Colon cancer screening guaiac equivical Depression screening negative screen Pending Test Test Name Order Date Complete Blood Count Auto Diff 5 Referrals Referral Date Details 05/27/2024 05/27/2024, SCREEN F OR COLON CANCER, Quan Shrestha Next Appt Details Follow Up: 3 Months, Reason: Provider Name:Chris mojica, 08/26/2024 10:15:00 AM, [address] [place] [address], [address], [place], [place], [phone], Provider Name:Chris mojica, 11/18/2024 07:45:00 AM, [address], [address], [place], [phone], Provider Name:Chris Bowers yunior, 05/22/2025 07:30:00 AM, [address], [address], [place], [phone], Provider Name:Chris Bowers yunior, 05/29/2025 09:30:00 AM, [address], [address], [place], [phone], Progress Notes * Shay WHEELER RDOB:[birth year] (74 yo M)Acc No.[id number]:05/27/2024 Progress Notes Patient:?Shay WHEELER Provider:?Chris Sanchez MD :1950???Age:74 Y???Sex:Male Everette e:05/27/2024 Address:[address] [place] [address] [id number] Subjective: * Chief Complaints: * ???ANNUAL EXAM * HPI: ???Depression Screening:?PHQ-9?Little interest or pleasure in doing things?Several days,?Feeling down, depressed, or hopeless?Several days,?Trouble falling or staying asleep, or sleeping too much?Nearly every day,?Feeling tired or having little energy?Nearly every day,?Poor appetite or overeating?Nearly every day,?Feeling bad about yourself or that you are a failure, or have let yourself or your family down?Not at all,?Trouble concentrating on things, such as reading the newspaper or watching television?Not at all,?Moving or speaking so slowly that other people could have noticed; or the opposite, being so fidgety or restless that you have been moving around a lot more than usual?Not at all,?Thoughts that you would be better off or of hurting yourself in some way?Not at all,?Total Score?11,?Interpretation?Moderate Depression.?Interpretation and Intervention?Depression Screening Findings?Negative,?Follow-Up for Depression?: review of PHQ-9 found negative result, no follow-up needed.?Communication Needs:?Communication Needs?Does the patient have a hearing impairment?No,?Does the patient have a vision impairment??Yes,?If yes, what is the vision impairment??Glasses,?Does the patient have a cognition impairment??No.?Fall Risk:?History?Have you had any falls with injury in the past year??No,?Have you had two or more falls in the past year??No.?SDOH Questions:?SDOH Questions?In the past year have you been worried about losing housing??No,?In the past year have you or any family members you live with been unable to get any of the following when it was really needed? Check all that apply:?None.?Symptom(s):? caroline is a 74 yo male here for annual visit with review of recent labs and follow up of chronic issues. * ROS:?General/Constitutional:?Change in appetite?denies.?Chills?denies.?Fever?denies.?Ophthalmologic:?Blurred vision?denies.?Discharge?denies.?Pain?denies.?ENT:?Decreased hearing?denies.?Sore throat?denies.?Swollen glands?denies.?Endocrine:?Cold intolerance?denies.?Excessive thirst?denies.?Heat intolerance?denies.?Weight loss?denies.?Respiratory:?Cough?denies.?Shortness of breath at rest?denies.?Shortness of breath with exertion?denies.?Wheezing?denies.?Cardiovascular:?Chest pain at rest?denies.?Chest pain with exertion?denies.?Irregular heartbeat?denies.?Shortness of breath?denies.?Gastrointestinal:?Abdominal pain?denies.?Change in bowel habits?denies.?Diarrhea?denies.?Nausea?denies.?Rectal bleeding?denies.?Vomiting?denies .?Genitourinary:?Blood in urine?denies.?Difficulty urinating?denies.?Frequent urination?denies.?Musculoskeletal:?Painful joints?denies.?Weakness?denies.?Skin:?Dry skin?denies.?Itching?denies.?Denies?Mole(s),? changes in moles, new moles or any lesions of concern.?Denies?Photosensitivity.?Rash?denies.?Neurologic:?Dizziness?denies.?Fainting?denies.?Headache?denies.? * Medical History:? * Surgical History:? * Hospitalization/Major Diagno stic Procedure:? * Family History:?Father: dece ased 81 yrs.?Mother: 81 yrs.?1 brother(s) , 1 sister(s) . 1 son(s) , 2 daughter(s) . .? Mother-Cardiac Father-Cancer 1 brother-suicide 1 sister breast cancer, Denies mental health/substance abuse family history, No pertinent family medical history, No pertinent family medical history. * Social History:?Tobacco Use:?Tobacco Use/Smoking?Patient is a?former smoker,?How long has it been since you last smoked??> 10 years,?Additional Findings: Tobacco Non-User?Former smoker, currently using no form of tobacco.?Drugs/Alcohol:?Alcohol Screen?Did you have a drink containing alcohol in the past year??No,?Points?0,?Interpretation?Negative.?Miscellaneous:?Caffeine: yes, frequency:, 2-3 cups per day. Children: yes. Exercise: no. Home smoke detector use: yes. Housing: owning. Living with: spouse. Marital status: . Occupation: works part-time. Pets: none. Travel outside of the [place]: no. * Medications:?TakingClaritin 10 MG Tablet 1 tablet Orally Once a day Lisinopril-hydroCHLOROthiazide 20-12.5 MG Tablet TAKE 1 TABLET [...] reviewed and reconciled with the patient * Allergies:?Lipitor: myalgiay es[Allergies Verified] Objective: * Vitals:?Ht: 65.5, Wt: 200, B IA:32.77, BP:128/60, Wt-k.72. * ???Past Orders: ???Lab:Microalbumin, Random (Order Date - 05/20/2024) (Collection Date & Time - 05/20/2024 08:00 AM) ? Value Reference Range ?Creatinine Urine 86.97 - m g/dL ?Microalbumin Urine 6.0 - mg/L ?Microalbum Creatinine Ratio Ur 6.8 <30 - ug/mg cr ???Lab:Hemoglobin A1c (Order Date - 05/20/2024) (Collection Date & Time - 05/20/2024 08:00 AM) ? Value Reference Range ?Hemoglobin A1c % 5.5 <6. 0 - % ?Estimated Average Glucose 111 - mg/dL ???Lab:Comprehensive [place]. P chilo Fast (Order Date - 05/20/2024) (Collection Date & Time - 05/20/2024 08:00 AM) ? Value Reference Range ?Sodium 143 135-145 - mmo l/L ?Bilirubin Total 0.6 0.0- 1.0 - mg/dL ?Aspartate Amino Transferase 32 5-37 - U/L ?Alanine Aminotransferase 40 0-40 - U/L ?Total Protein 7.2 6.5-8. 0 - g/dL ?Albumin Level 4.1 3.5-5. 0 - g/dL ?Alkaline Phosphatase 48 39-117 - U/L ?Potassium 4.0 3.3-5.1 - mmol/L ?Chloride 107 96-108 - mm ol/L ?Carbon Dioxide 28 22-29 - mmol/L ?Anion Gap 12 12-20 - ?Blood Urea Nitrogen 25 H 9-16 - mg/dL ?Creatinine 0.93 0.5-1.4 - mg/dL ?Estimated Glomerular Filt Rate > 60 - ?Glucose Fasting 106 H 60-9 9 - mg/dL ?Calcium 9.3 8.4-10.2 - m g/dL ???Lab:UA ClnCatch+Micro w/r flx Cult (Order Date - 05/20/2024) (Collection Date & Time - 05/20/2024 08:00 AM) ? Value Reference Range ?Color Urine Yellow - ?Appearance Urine Clear - ?PH 6.0 5.0-9.0 - ?Glucose Urine UA Negative Neg ative - mg/dL ?Urine Blood Negative Negative - ?Specific [place] - Urine 1.015 1.005-1.025 - ?Urine Protein Negative Neg-Tr oscar - mg/dL ?Urine Ketones Negative Negati ve - mg/dL ?Nitrite Urine Negative Negati ve - ?Leukocyte Esterase Urine Negative Negative - ?RBC Urine 0-2 0-2 - /HPF ?WBC Urine 0-5 0-5 - /HPF ?Squamous Epithelial Cell Urine 0-2 0-2 - /HPF ?Bacteria Urine None Seen None Seen - ?Hyaline Casts Urine 0-2 0-2 - /LPF ???Lab:Lipid Panel (Order Da te - 05/20/2024) (Collection Date & Time - 05/20/2024 08:00 AM) ? Value Reference Range ?Triglycerides 113 <150 - mg/dL ?Cholesterol 149 <200 - m g/dL ?LDL Cholesterol Calculated 84 <100 - mg/dL ?HDL Cholesterol 43 >40 - mg/dL ???Lab:PSA,Total (Free>4and< 10) (Order Date - 05/20/2024) (Collection Date & Time - 05/20/2024 08:00 AM) ? Value Reference Range ?PSA,Total (Free>4and<10) < 0.10 0.00-4.00 - ng/mL ???Lab:TSH reflex Free T4 (O rder Date - 05/20/2024) (Collection Date & Time - 05/20/2024 08:00 AM) ? Value Reference Range ?TSH reflex Free T4 3.49 0 .32-4.0 - uIU/mL * Examination: ???General Examination: ?GENERAL APPEARANCE:?well developed, well nourished, in no acute distress.?HEAD:?normocephalic, atraumatic.?EYES:?pupils equal, round, reactive to light and accommodation, sclera non-icteric.?EARS:?normal.?ORAL CAVITY:?mucosa moist.?THROAT:?clear.?NECK/THYROID:?neck supple, full range of motion, no cervical lymphadenopathy, no bruits.?SKIN:?warm and dry, no suspicious lesions.?HEART:?regular rate and rhythm, S1, S2 normal, no murmurs.?LUNGS:?clear to auscultation bilaterally.?ABDOMEN:?soft, nontender, nondistended, bowel sounds present, normal, no organomegaly , no masses palpable.?RECTAL EXAM:?normal tone, no external hemorrhoids, no masses palpable, prostate normal, stool looked like blood but tested equivical.?MALE GENITOURINARY:?circumcised, no penile lesions or discharge, testes descended bilaterally.?EXTREMITIES:?no clubbing, cyanosis, or edema.?NEUROLOGIC:?nonfocal, motor strength normal upper and lower extremities, sensory exam intact.? Assessment: * Assessment: 1.?Annual physical exam - Z0 0.00 (Primary)???2.?Cancer of thyroid - C73???3.?Type 2 diabetes mellitus without complication, with no history of insulin use - E11.9???4.?Pure hypercholesterolemia - E78.00???5.?Neutropenia - D70.9???6.?Rectal bleeding - K62.5???7.?Essential hypertension - I10???8.?Colon cancer screening - Z12.11???9.?Depression screening - Z13.31??? Plan: * Treatment: 2.?Cancer of thyroid? Notes: need note from dr allison and need pet scan/PHONE CALL IN TO MED RECORDS FOR DOCS?? 3.?Type 2 diabetes mellitus without complication, with no history of insulin use? Notes: well controlled, will continue current regiment?? 4.?Pure hypercholesterolemia ? Notes: doing well on meds, will continue current regiment?? 5.?Neutropenia?LAB: Complete Blood Count Auto Diff (Ordered for 06/24/2024) Notes: is probably related to the MOLINA?? 6.?Rectal bleeding? Notes: will get colonoscopy this year. arrange with dr shrestha?? 7.?Essential hypertension? Notes: stable, will continue current regiment?? 8.?Colon cancer screening? Notes: guaiac equivical?? 9.?Depression screening? Notes: negative screen?? 10.?Others? Referral To:Quan Shrestha??Gastroenterology ?Reason:SCREEN FOR COLON CANCER * Procedure Codes:? * Preventive Medicine:? ??Diabetes Care Plan:?Patient Lifestyle Goals?Needs to maintain diet control.?Treatment Goals?A1C< 7.?Barriers ?No specific barriers, doing well.?Self-Managment Plan?Increase light exercise to 3 times a week for 30 minutes.?Expected Outcome maintaining stable blood sugar levels within a target range.? * Follow Up:?3 Months * * Sign off status: Completed true * Provider:?Chris Sanchez MD Date:?0 05/27/2024 Generated for Milli fabian/Neisha/eTransmitting on:?06/24/2024 11:15 AM EDT History and Physical Notes * [...] had two or more falls in the st year?: No Communication Needs Communication Needs Does the patient have a hearing impairment: No Does the patient have a vision impairmen t?: Yes ?If yes, what is the vision impairment?: Glasses Does the patient have a cognition impair ment?: No Examination Category Sub-Category Detail Notes Category Not es General Examination GENERAL APPEARANCE: well dev eloped, well nourished, in no acute distress HEAD: normocephalic, atrau matic EYES: pupils equal, round, reactive to light and accommodation, sclera non- icteric EARS: normal THROAT: clear NECK/THYROID: neck supple, [...]
--- OUTSIDE RECORDS SUMMARY | 2024-06-24 11:15 | XMS_ITS | Patient Health Record ---
Author Organization [facility] Address [address] [place] [address] Care Team Providers Care Ciso Name Role Phone Chris Sanchez MD Primary Care Provider Quan Pedro Unavailable [phone] Reason For Referral No Information Medications Medication SIG (Take, Route, Frequency, Duration) Notes Start Date End Date Status Claritin 10 MG 1 tablet Orally Once a day for 30 day(s) Active Vitamin C 500 MG as directed Orally Active Lisinopril-hydroCHLOROthiaz jeff 20-12.5 MG 1 tablet Orally bid Active Simvastatin 80 MG 1 tablet in the even ing Orally Once a day Active Ibuprofen 800 MG 1 tablet with food o r milk as needed Orally BID Active Problems Problem Type SNOMED Code ICD Code Onset Dates Problem Status W/U Status Risk Notes Problem 63431899 Rectal bleeding (K62.5) Active confirmed Problem 277162299 Encounter for screening for malignant neoplasm of colon (Z12.11) Active confirmed Problem 003874528 History of adenomatous polyp of colon (Z86.010) Active confirmed Problem 24510757 Bleeding hemorrhoids (K64.9) Active confirmed Plan Of Treatment Future Test Test Name Order Date COLONOSCOPY 02/10/2012 COLONOSCOPY 05/12/2019 Next Appt Details Provider Name:Quan Patel , 09/15/2024 10:20:00 AM, [address], [address], [place], [address], Insurance Providers Payer Name Payer Address Payer Phone Subscriber Number Group Number Insured Name Patient Relationship to Insured Coverage Start Date Coverage End Date [facility] [address] [place], [place] [id number] PHYLLIS WHEELER Self - patient is the insured Medical (General) History Medical History History ICD Code Sigmoid diverticulosis HTN Hyperlipidemia Denies CT,DM,CVA,Lung disease,renal dise ase Colonoscopies in 2000 and 26 08--neg except diverticulosis and internal/external hemorrhoids Sleep apnea-uses a CPAP mask Colonoscopy 04/2012 with a sm all tubular adenoma, diverticulosis, internal/external hemorrhoids Prostate cancer 2018 --XRT Surgical History Surgery Date(Month/Year) Hemorrhoidectomy Left knee replacement in 10/[address] Welch
--- OUTSIDE RECORDS SUMMARY | 2024-06-24 11:15 | XMS_ITS ---
Author Organization Chris Sanchez MD Address [address] [place] [phone] Care Team Providers Care Machine Strap Buckler Name Role Phone Chris Sanchez Primary Care Provider REASON FOR VISIT repeat CBC in 1 month Encounters Encounter Location Date Provider Diagnosis Chris Sanchez MD [address] [facility] [address] [place] [phone] 06/20/2024 Chris Sanchez Plan Of Treatment Next Appt Details Provider Name:Chris mojica, 08/26/2024 10:15:00 AM, [address] [place] [address], [address], [phone], Provider Name:Chris mojica, 11/18/2024 07:45:00 AM, [address] [place] [address], [address], [phone], Provider Name:Chris mojica, 05/22/2025 07:30:00 AM, [address], [address], [place], [phone], Provider Name:Chris Bowers ier, 05/29/2025 09:30:00 AM, [address], [address], [place], [phone], Progress Notes * SUMMER, Shay RDOB:[birth year] (74 yo M)Acc No.[id number]:06/20/2024 Progress Note Patient:?Shay WHEELER Provider:?Chris Sanchez MD :1950???Age:74 Y???Sex:Male Everette e:06/20/2024 Address:[address] [place] [address], [facility] [place] [id number] Subjective: * Chief Complaints: * ???1. repeat CBC in 1 month. * Medical History:? Objective: * Vitals:? Assessment: Plan: * Treatment: * * The named appointment provid er may or may not be the originator of this progress note, and it is not deemed complete until electronically signed by the appointment provider. Sign off status: Pending * Provider:?Chris Sanchez MD Date:?0 06/20/2024 Generated for Milli fabian/Neisha/eTsarismitting on:?06/24/2024 11:15 AM EDT
== END 2024-06-24 10:22 | disposition home or self-care (01) ==
LOC: HO.LNP 10:21
PROVIDERS: Visit Provider Internal Medicine
DX: D70.9 Neutropenia, unspecified (principal)
CPT/HCPCS: 85025

== ENCOUNTER 2024-11-18 11:08 | Outpatient (REF) | payer MEDICARE, SELFPAY ==
--- OUTSIDE RECORDS SUMMARY | 2024-06-20 04:00 | XMS_ITS ---
Author Organization Chris Sanchez MD Address [address] [place] [phone] Care Team Providers Care Program Manager Environmental Planning Name Role Phone Chris Sanchez Primary Care Provider [phone] REASON FOR VISIT repeat CBC in 1 month Encounters Encounter Location Date Provider Diagnosis Chris Sanchez MD [address] [place] [address] [place] [phone] 06/20/2024 Chris Sanchez Plan Of Treatment Next Appt Details Provider Name:Chris mojica, 12/06/2024 01:30:00 PM, [address] [place] [address], [address] [place] [address], [phone], Provider Name:Chris mojica, 05/22/2025 07:30:00 AM, [address] [place] [address], [address] [place] [address] [place], [phone], Provider Name:Chris mojica, 05/29/2025 09:30:00 AM, [address] [facility], [address], [place], [place], [phone], Progress Notes * Shay WHEELER RDOB:[birth year] (74 yo M)Acc No.[id number]:06/20/2024 Progress Note Patient: Shay AMEZQUITA Provider: Jonny Sanchez MD :1950 A ge:74 Y S ex:Male Date:06/20/2024 Address:[address] [place] [address], [id number] Subjective: * Chief Complaints: * 1 . repeat CBC in 1 month. * Medical History: Objective: * Vitals: Assessment: Plan: * Treatment: * * The named appointment provid er may or may not be the originator of this progress note, and it is not deemed complete until electronically signed by the appointment provider. Sign off status: Pending * Provider: Jonny Sanchez MD Date: 0 06/20/2024 Generated for Milli fabian/Neisha/Euniceitting on: 0 11/18/2024 01:08 PM EDT
--- OUTSIDE RECORDS SUMMARY | 2024-06-24 03:15 | XMS_ITS ---
Author Organization Chris Sanchez MD Address [address] [place] [phone] Care Team Providers Care Chalk Cutter Name Role Phone Chris Sanchez Primary Care Provider Results Component Value Reference Range Notes Complete Blood Count Auto Di ff Reviewed date:06/24/2024 07:20:25 PM Interpretation: Performing Lab:[facility], [address] [place] [phone] Notes/Report: White Blood Count 4.2 4.8-10.8 X10*3/uL Red Blood Count 3.98 4.60-5.80 X10*6/uL Hemoglobin 12.7 14.0-18.0 g/dl Hematocrit 36.1 42.0-52.0 % Mean Corpuscular Volume 90.7 80.0-98.0 fL Mean Corpuscular Hemoglobin 31.9 27.0-33.0 pg Mean Corpuscular HGB Conc 35.2 31.0-36.0 g/dl Red Cell Distribution Width 12.6 11.0-16.0 % Platelet Count 186 160-400 X10*3/uL Mean Platelet Volume 10.1 9.4-12.4 fL Neutrophils Percent Auto 66.5 45-73 % Imm Gran Pct Auto 0.5 0.0-0.4 % Lymphocytes Percent Auto 19.5 20-40 % Monocytes Percent Auto 7.9 2-11 % Eosinophils Percent Auto 4.6 0-4 % Basophils Percent Auto 1.0 0-2 % NRBC Pct Auto 0.0 0.0-0.2 /100WBC Neutrophils Absolute Auto 2.8 2.0-8.3 x10*3/u L Imm Gran Abs Auto 0.02 0.00-0.03 X10*3/uL Lymphocytes Absolute Auto 0.8 1.2-4.9 X10*3/u L Monocytes Absolute Auto 0.3 0.1-1.2 X10*3/uL Eosinophils Absolute Auto 0.2 0.0-0.4 X10*3/u L Basophils Absolute Auto 0.0 0.0-0.2 X10*3/uL NRBC Abs Auto 0.000 0.0-0.012 X10*3/uL REASON FOR VISIT CBC AUTO DIFF Encounters Encounter Location Date Provider Diagnosis Chris Sanchez MD [address] [place] [phone] 06/24/2024 Chris Sanchez Neutropenia D70.9 Assessments Encounter Date Diagnosis (ICD Code) Assessment Notes Treatment Notes Treatment Clinical Notes Section Notes 06/24/2024 Neutropenia (ICD-10 - D70.9) Plan Of Treatment Next Appt Details Provider Name:Chris mojica, 12/06/2024 01:30:00 PM, [address] [place] [address], [address], [phone], Provider Name:Chris mojica, 05/22/2025 07:30:00 AM, [address] [place] [address], [address], [phone], Provider Name:Chris mojica, 05/29/2025 09:30:00 AM, [address] [place] [address], [address], [phone], Progress Notes * Shay WHEELER RDOB:[birth year] (74 yo M)Acc No.[id number]:06/24/2024 Progress Note Patient: Shay AMEZQUITA Provider: Jonny Sanchez MD :1950 A ge:74 Y S ex:Male Date:06/24/2024 Address:[address] [place], [place] [phone] Subjective: * Chief Complaints: * 1 . CBC AUTO DIFF. * Medical History: Objective: * Vitals: Assessment: * Assessment: 1. N eutropenia - D70.9 (Primary) Plan: * Treatment: * Procedure Codes: 3 6415 VENIPUNCT, ROUTINE* * * The named appointment provid er may or may not be the originator of this progress note, and it is not deemed complete until electronically signed by the appointment provider. Sign off status: Pending * Provider: Jonny Sanchez MD Date: 0 06/24/2024 Generated for Milli fabian/Neisha/eTransmitting on: 0 11/18/2024 01:07 PM EDT
--- OUTSIDE RECORDS SUMMARY | 2024-08-26 06:15 | XMS_ITS ---
Author Organization Chris Sanchez MD Address [address] [place], [place] [id number] Care Team Providers Care Sweatband Cutting Machine Operator Name Role Phone Chris Sanchez Primary Care Provider [phone] Allergies Allergen (clinical drug ingredient) Drug/Non Drug [...] W/U Status Risk Notes Problem Thyroid cancer (625398849) Thyroid cancer (C73) Active confirmed Vital Signs Blood pressure systolic 138 mm Hg 08/27/19 25 Blood pressure diastolic 64 mm Hg 025 Height 65.5 in 08/26/2024 Weight 200 lbs 08/26/2024 BMI 32.77 kg/m2 08/26/2024 Encounters Encounter Location Date Provider Diagnosis Chris Sanchez MD [address] [place] [phone] 08/26/2024 Chris Sanchez Neutropenia D70.9 and Thyroid cancer C73 Assessments Encounter Date Diagnosis (ICD Code) Assessment Notes Treatment Notes Treatment Clinical Notes Section Notes 08/26/2024 Neutropenia (ICD-10 - D70.9) is doing well with the white count coming up 08/26/2024 Thyroid cancer (ICD-10 - C73) need notes from endocrine at [facility]/REQUEST MADE TO [facility] RECORDS Plan Of Treatment Treatment Notes Assessment Notes Neutropenia is doing well with t he white count coming up Thyroid cancer need notes from endo crine at [facility]/REQUEST MADE TO [facility] RECORDS Next Appt Details Follow Up: 3 Months, Reason: Provider Name:Chris mojica, 12/06/2024 01:30:00 PM, [address] [place] [address], [address], [phone], Provider Name:Chris mojica, 05/22/2025 07:30:00 AM, [address] [place] [address], [place] [address], [place], [place], [phone], Provider Name:Chris mojica, 05/29/2025 09:30:00 AM, [address] [place] [address], [address], [phone], Progress Notes * Shay WHEELER RDOB:[birth year] (74 yo M)Acc No.[id number]:08/26/2024 Progress Notes Patient: Sarah Shay SWANSON Provider: Jonny Sanchez MD :1950 A ge:74 Y S ex:Male Date:08/26/2024 Address:[address] [place], [place] [id number] Subjective: * Chief Complaints: * 3 MO [...] cancer Notes: need notes from endocrine at [facility]/REQUEST MADE TO [facility] RECORDS * Procedure Codes: * Follow Up: 3 Months * * Sign off status: Completed true * Provider: Jonny Sanchez MD Date: 0 08/26/2024 Generated for Milli fabian/Neisha/eTransmitting on: 0 11/18/2024 01:07 PM EDT History and Physical Notes * HPI [...]
--- OUTSIDE RECORDS SUMMARY | 2024-11-18 03:45 | XMS_ITS ---
Author Organization Chris Sanchez MD Address [address] [place] [phone] Care Team Providers Care Oncology Social Worker Name Role Phone Chris Sanchez Primary Care Provider Results Component Value Reference Range Notes Hemoglobin A1c Reviewed date:11/18/2024 12:30:18 PM Interpretation: Performing Lab:[facility], [address] [place] [phone] Notes/Report: Hemoglobin A1c % 5.7 <6.0 % Hemoglobin A1C Reference Range Adults: 4.8 - 6.0 % Non diabetic: < 6.0 % Goal: < 7.0 % Additional Action Suggested: > 8.0 % Note: Hemoglobin A1c results are invalid for patients with abnormal amounts of HbF. Blood transfusions may impact the HbA1c concentration in the patient sample. Estimated Average Glucose 117 eAG = Estimated average glucose which is %A1C expressed as average glucose, using the formula of the E6S-Ycpiaks Average Glucose study (ADAG), Diabetes Care, Vol.31,#8, 2007 REASON FOR VISIT FASTING LIPIDS Medications Medication SIG (Take, Route, Frequency, Duration) Notes Start Date End Date Status Zolpidem Tartrate 5 MG TAKE 1 TABLET BY MOUTH EVERY DAY for 90 08/24/2024 Active Sildenafil Citrate 100 MG 1/2 tablet as needed Orally Once a day for 30 day(s) 09/28/2020 Not-Taking Claritin 10 MG 1 tablet Orally Once a day for 30 day(s) Active Levothyroxine Sodium 137 MCG 1 tablet in the morning on an empty stomach Orally Once a day for 90 days Active Simvastatin 80 MG TAKE 1 TABLET ONCE DAILY ATBEDTIME Active IBU 800 MG TAKE 1 TABLET THREE TIMES ADAY NEEDED for 90 Active Lisinopril-hydroCHLOROthia zide 20-12.5 MG TAKE 1 TABLET TWICE A DAY for 90 Active Immunizations Vaccine Route Administration Date Status Comme nts Influenza High Dose IM Intramuscular 11/18/2024 Administer ed Encounters Encounter Location Date Provider Diagnosis Chris Sanchez MD [address] [place] [address] [place] [phone] 11/18/2024 Chris Sanchez Pure hypercholestero lemia E78.00 and Type 2 diabetes mellitus without complication, with no history of insulin use E11.9 Assessments Encounter Date Diagnosis (ICD Code) Assessment Notes Treatment Notes Treatment Clinical Notes Section Notes 11/18/2024 Pure hypercholesterolemia (ICD-10 - E78.00) 11/18/2024 Type 2 diabetes heidy itus without complication, with no history of insulin use (ICD-10 - E11.9) Plan Of Treatment Medication Medication Name Sig Start Date Stop Date Notes Zolpidem Tartrate 5 MG TAKE 1 TABLET BY MOUTH EVERY DAY for 90 08/24/2024 Pending Test Test Name Order Date Liver Panel 11/18/2024 Glucose Fasting 11/18/2024 Lipid Panel with Reflex 11/18/2024 Next Appt Details Provider Name:Chris mojica, 12/06/2024 01:30:00 PM, [address] [place] [address], Suite [facility], [place], [place], [phone], Provider Name:Chris mojica, 05/22/2025 07:30:00 AM, [address] [place] [address], [place] [address], [place], [place], [phone], Provider Name:Chris Bowers ier, 05/29/2025 09:30:00 AM, [address], [address], [place], [phone], Progress Notes * Shay WHEELER RDOB:[birth year] (74 yo M)Acc No.[id number]:11/18/2024 Progress Note Patient: Shay AMEZQUITA Provider: Jonny Sanchez MD :1950 A ge:74 Y S ex:Male Date:11/18/2024 Address:[address] [place] [address], [facility] [id number] Subjective: * Chief Complaints: * 1 . FASTING LIPIDS. * Medical History: * Medications: T aking Claritin 10 MG Tablet 1 tablet Orally Once a day , Taking Lisinopril-hydroCHLOROthiazide 20-12.5 MG Tablet TAKE 1 TABLET TWICE A DAY , Taking IBU 800 MG Tablet TAKE 1 TABLET THREE TIMES ADAY NEEDED , Taking Simvastatin 80 MG Tablet TAKE 1 TABLET ONCE DAILY ATBEDTIME , Taking Levothyroxine Sodium 137 MCG Tablet 1 tablet in the morning on an empty stomach Orally Once a day , Taking Zolpidem Tartrate 5 MG Tablet TAKE 1 TABLET BY MOUTH EVERY DAY , Not-Taking/PRN Sildenafil Citrate 100 MG Tablet 1/2 tablet as needed Orally Once a day Objective: * Vitals: Assessment: * Assessment: 1. P ure hypercholesterolemia - E78.00 (Primary) 2 . T ype 2 diabetes mellitus without complication, with no history of insulin use - E11.9 Plan: * Treatment: 2. T ype 2 diabetes mellitus without complication, with no history of insulin use L AB: Liver Panel L AB: Glucose Fasting L AB: Lipid Panel with Reflex L AB: Hemoglobin A1c (Collection Date & Time - 11/18/2024 07:45 AM) * Immunizations: Influenza High Dose : 0.5 mL (Dose No:1) (Route: Intramuscular) given by Roxane Banegas , Office Staff on Left Deltoid * Procedure Codes: 3 6415 VENIPUNCT, ROUTINE*, 66600 FLU VACC PRSV FREE INC ANTIG, 37530 IMMUNIZATION ADMIN * * The named appointment provid er may or may not be the originator of this progress note, and it is not deemed complete until electronically signed by the appointment provider. Sign off status: Pending * Provider: Jonny Sanchez MD Date: 11/18/2024 Generated for Milli fabian/Neisha/Euniceitting on: 11/18/2024 01:07 PM EDT
--- OUTSIDE RECORDS SUMMARY | 2024-11-18 03:53 | XMS_ITS ---
Author Organization Chris Sanchez MD Address [address] [place] [phone] Care Team Providers Care Finished Hardware Erector Name Role Phone Chris Sanchez Primary Care Provider REASON FOR VISIT RF Zolpidem Medications Medication SIG (Take, Route, Fr equency, Duration) Notes Start Date End Date Status Zolpidem Tartrate 5 MG TAKE 1 TABLET BY MOUTH EVERY DAY for 90 11/18/2024 Active Encounters Encounter Location Date Provider Diagnosis Chris Sanchez MD [address] [place] [phone] 11/18/2024 Chris Sanchez Pure hypercholestero lemia E78.00 Assessments Encounter Date Diagnosis (ICD Code) Assessment Notes Treatment Notes Treatment Clinical Notes Section Notes 11/18/2024 Pure hypercholesterolemia (ICD-10 - E78.00) Plan Of Treatment Medication Medication Name Sig Start Date Stop Date Notes Zolpidem Tartrate 5 MG TAKE 1 TABLET BY MOUTH EVERY DAY for 90 11/18/2024 Next Appt Details Provider Name:Chris Bowers ier, 12/06/2024 01:30:00 PM, [address] [place] [address], Suite [facility], [place], [place], [phone], Provider Name:Chris Bowers ier, 05/22/2025 07:30:00 AM, [address] [place] [address], Suite [facility], [place], [place], [phone], Provider Name:Chris Bowers ier, 05/29/2025 09:30:00 AM, [address] [place] [address], Suite [facility], [place], [place], [phone], Progress Notes * Shay WHEELER RDOB:[birth year] (74 yo M)Acc No.[id number]:11/18/2024 Patient: Sarah HIDAMON Shay Brock :1950 A ge:74 Y S ex:Male Address:[address] [place] [address], [place] [address] * Refills Refill Zolpidem Tartrate Tablet, 5 MG, 90 Tablet, TAKE 1 TABLET BY MOUTH EVERY DAY, 90, Refills=0 * true * Date: Generated for Milli fabian/Neisha/Euniceitting on: 0 11/18/2024 01:08 PM EDT
[2024-11-18 11:50] LABS: Hemoglobin A1C 131.3464 umol/L; Total Hemoglobin (HGBA1C) 3358.0439 umol/L
[2024-11-18 12:17] LABS: Alanine Aminotransferase 37 U/L (0-40); Albumin Level 4.5 g/dL (3.5-5.0); Alkaline Phosphatase 47 U/L (39-117); Aspartate Amino Transferase 33 U/L (5-37); Cholesterol 147 mg/dL (<200); HDL Cholesterol 43 mg/dL (>40); Total Protein 7.0 g/dL (6.5-8.0); Triglycerides 142 mg/dL (<150)
--- OUTSIDE RECORDS SUMMARY | 2024-11-18 13:07 | XMS_ITS | Patient Health Record ---
Author Organization [facility] Address [address] [place] [address] Care Team Providers Care Fuel Cell Assembler Name Role Phone Chris Sanchez MD Primary Care Provider Leon Joseph Unavailable [phone] Allergies Allergen (clinical drug ingredient) Drug/Non Drug [...] Status W/U Status Risk Notes Problem Bursitis (49848552) Bursitis (727.3) Active confirmed Problem Myositis (78572823) Myositis (729.1) Active confirmed Problem Pain in limb (86727072) Pain in Limb (729.5) Active confirmed Problem Plantar fasciitis (195330072) Plantar Fasciitis (728.71) Active confirmed Plan Of Treatment Pending Test Test Name Order Date X ray : Foot, left 2V 05/19/2013 X ray : Foot, right 2V 05/19/2013 Insurance Providers Payer Name Payer Address Payer Phone Subscriber Number Group Number Insured Name Patient Relationship to Insured Coverage Start Date Coverage End Date [facility] [address] [place] [address] [phone] [id number] Shay Villareal Self - patient is the insured Medical (General) History Medical History History ICD Code Arthritis Back,Hip,and Knee pain Chicken pox Headaches Hypercholesterolemia Hypertension Measles Mumps Transfusions Surgical History Surgery Date(Month/Year) oral surgery 05/2013
--- OUTSIDE RECORDS SUMMARY | 2024-11-18 13:07 | XMS_ITS | Patient Health Record ---
Author Organization Chris Sanchez MD Address [address] [place], [place] [id number] Care Team Providers Care Solutions Specialist Name Role Phone Chris Sanchez Primary Care Provider [phone] Allergies Allergen (clinical drug ingredient) Drug/Non Drug Allergy documented on EMR Reaction Allergy Type Onset Date Status atorvastatin Lipitor myalgia Drug Allergy Acti ve Results Component Value Reference Range Notes Liver Panel Reviewed date:01/08/2024 05:06:39 PM Interpretation: Performing Lab:[facility], [address] [place] [phone] Notes/Report: Bilirubin Total 0.4 0.0-1.0 mg/dL Bilirubin Direct 0.1 0.0-0.5 mg/dL Aspartate Amino Transferase 31 5-37 U/L Alanine Aminotransferase 31 0-40 U/L Total Protein 7.2 6.5-8.0 g/dL Albumin Level 4.2 3.5-5.0 g/dL Alkaline Phosphatase 52 39-117 U/L Glucose Fasting Reviewed date:01/08/2024 05:16:02 PM Interpretation: Performing Lab:[facility], [address] [place] [phone] Notes/Report: Glucose Fasting 113 60-99 mg/dL A fasting glucose from 100-125 mg/dl is considered impaired (pre-diabetes). Lipid Panel with Reflex Reviewed date:01/08/2024 05:16:12 PM Interpretation: Performing Lab:[facility], [address] [place] [phone] Notes/Report: Triglycerides 107 <150 mg/dL Desirable Triglyceride: [...] A1c Reviewed date:01/08/2024 12:50:06 PM Interpretation: Performing Lab:[address] [phone] Notes/Report: Hemoglobin A1c % 5.6 <6.0 % [...] average glucose, using the formula of the Y5T-Nottxdi Average Glucose study (ADAG), Diabetes Care, Vol.31,#8, 2007 Complete Blood Count Auto Di ff Reviewed date:06/24/2024 09:53:02 AM Interpretation:06-24-2024 Performing Lab:[facility], [address] [place] [phone] Notes/Report: White Blood Count 3.8 4.8-10.8 X10*3/uL [...] NRBC Abs Auto 0.000 0.0-0.012 X10*3/uL Comprehensive Rison. Panel Fa st Reviewed date:05/20/2024 05:03:09 PM Interpretation: Performing Lab:[facility], [address] [place] [address] Notes/Report: Sodium 143 135-145 mmol/L Potassium 4.0 [...] Panel Reviewed date:05/20/2024 12:15:55 PM Interpretation: Performing Lab:[address] [phone] Notes/Report: Triglycerides 113 <150 mg/dL Desirable Triglyceride: [...] (Free>4and<10) Reviewed date:05/20/2024 12:11:38 PM Interpretation: Performing Lab:[address] [phone] Notes/Report: PSA,Total (Free>4and<10) < 0.10 0.00-4.00 ng/mL [...] T4 Reviewed date:05/20/2024 12:15:47 PM Interpretation: Performing Lab:[address] [address] Notes/Report: TSH reflex Free T4 3.49 0.32-4.0 uIU/mL Microalbumin, Random Reviewed date:05/20/2024 05:06:43 PM Interpretation: Performing Lab:[facility], [address] [place] [phone] Notes/Report: Creatinine Urine 86.97 Microalbumin Urine 6.0 Microalbum/Creatinine Ratio Ur 6.8 <30 ug/mg cr Albumin/Creatinine Ratio Reference Ranges: Normal: < 30 ug/mg creatinine Microalbuminuria: 30 - 300 ug/mg creatinine Clinical Albuminuria: > 300 ug/mg creatinine Hemoglobin A1c Reviewed date:05/20/2024 12:17:15 PM Interpretation: Performing Lab:[address] [phone] Notes/Report: Hemoglobin A1c % 5.5 <6.0 % [...] average glucose, using the formula of the Z5I-Yextcqz Average Glucose study (ADAG), Diabetes Care, Vol.31,#8, Oct. 2007 UA ClnCatch+Micro w/rflx Cul t Reviewed date:05/20/2024 05:07:53 PM Interpretation: Performing Lab:[facility], [address] [place] [phone] Notes/Report: Urine, Clean Catch Color Urine Yellow Appearance Urine Clear PH 6.0 5.0-9.0 Glucose Urine UA Negative Negative mg/dL Urine Blood Negative Negative Specific [place] - Urine 1.015 1.005-1.025 Urine Protein Negative [...] ff Reviewed date:06/24/2024 07:20:25 PM Interpretation: Performing Lab:[facility], [address] [place] [phone] Notes/Report: White Blood Count 4.2 4.8-10.8 X10*3/uL [...] X10*3/uL NRBC Abs Auto 0.000 0.0-0.012 X10*3/uL Hemoglobin A1c Reviewed date:11/18/2024 12:30:18 PM Interpretation: Performing Lab:[facility], [address] [place] [phone] Notes/Report: Hemoglobin A1c % 5.7 <6.0 % [...] average glucose, using the formula of the C8F-Qraifrs Average Glucose study (ADAG), Diabetes Care, Vol.31,#8, 2007 Jeffry Villalta Reviewed date:01/08/2024 11:58:42 AM Interpretation: Performing Lab:[facility], [address] [place] [phone] Notes/Report: Jeffry Villalta See Note Specimen held untested for 24 hours; Call to request Chemistry testing. Jeffry Villalta Reviewed date:11/18/2024 12:30:27 PM Interpretation: Performing Lab:[facility], [address] [place] [phone] Notes/Report: Jeffry Villalta See Note Specimen held [...] , FAX REFFERAL TO DR GARCIA OFFICE, BernaRebekaBrenna Angel Mami 06/03/2024 10:34:16 AM >APPT SCHEDULED 09/15/24 AT 10:20AM Referral Priority Routine Referral Appointment Date 09/15/2024 Medications Medication SIG (Take, Route, Frequency, Duration) Notes Start Date End Date Status Sildenafil Citrate 100 MG 1/2 tablet as needed Orally Once a day for 30 day(s) 09/28/2020 Not-Taking Zolpidem Tartrate 5 MG TAKE 1 TABLET BY MOUTH EVERY DAY for 90 11/18/2024 Active Claritin 10 MG 1 tablet Orally Once a day for 30 day(s) Active IBU 800 MG TAKE 1 TABLET THREE TIMES ADAY NEEDED for 90 Active Lisinopril-hydroCHLOROthia zide 20-12.5 MG TAKE 1 TABLET TWICE A DAY for 90 Active Levothyroxine Sodium 137 MCG 1 tablet in the morning on an empty stomach Orally Once a day for 90 days Active Simvastatin 80 MG TAKE 1 TABLET ONCE DAILY ATBEDTIME Active Immunizations Vaccine Route Administration Date Status Comme nts Flu Vaccine IM Intramuscular 12/31/2010 Administered Flu Vaccine IM Intramuscular 12/01/2011 Administered Flu Vaccine IM Intramuscular 12/25/2012 Administered [facility] Fluarix Quadrivalent IM Intramuscular 11/10/2013 Administe [facility] Fluarix Quadrivalent IM Intramuscular 11/24/2014 Administe red PPSV23 (Pnemovax) IM Intramuscular 12/22/2014 Administered Fluarix Quadrivalent IM Intramuscular 2016 Administe red Prevnar 13 IM Intramuscular 02/14/2016 Administered Fluarix Quadrivalent Unknown 02/03/2017 Administered [facility] Fluarix Quadrivalent Unknown 01/19/2018 Administered pt was given the vaccine at [facility]. 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 Problem 1634916 Primary insomnia (F51.01) Active confirmed Problem 150189257 Tubular adenoma of colon (D12.6) Active confirmed Problem 54972412 Essential hypert ension (I10) Active confirmed Problem 827058890 Prostate cancer (C61) Active confirme d Problem 244854866 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) Active confirmed Problem 241579148 History of hemat uria (Z87.448) Active confirmed Problem Thyroid cancer (544671443) Thyroid cancer (C73) Active confirmed Problem 346403164 Neutropenia, unspecified type (D70.9) Active confirmed Problem 867143503 Erectile dysfunc tion following radiation therapy (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) Active confirmed Problem 332393362 Pure hypercholesterolemia (E78.00) Active confirmed Problem 237579204 Elevated PSA (R97.20) Active confirme d Problem Obstructive sleep apnea syndrome (75612762) JAN (obstructive sleep apnea) (G47.33) Active confirmed Problem 978180550 BMI 34.0-34.9,ad ult (Z68.34) Active confirmed Problem 419382560 Type 2 diabetes mellitus without complication, with no history of insulin use (E11.9) Active confirmed Problem 796494095 Cancer of thyroid (C73) Active confir med Vital Signs Blood pressure diastolic 64 mm Hg 08/26/2024 Height 65.5 in 08/26/2024 Blood pressure systolic 138 mm Hg 08/26/2024 Weight 200 lbs 08/26/2024 BMI 32.77 kg/m2 08/26/2024 Encounters Encounter Location Date Provider Diagnosis Chris Sanchez MD [address] [place] [id number] 01/08/2024 Chris Sanchez Pure hypercholestero lemia E78.00 ; Encounter for immunization Z23 and Type 2 diabetes mellitus without complication, with no history of insulin use E11.9 Chris Sanchez MD [address] [place] [id number] 05/20/2024 Chris Sanchez Blood tests for rout ine general physical examination Z00.00 ; Essential hypertension I10 ; Pure hypercholesterolemia E78.00 ; Elevated PSA R97.20 ; Neutropenia, unspecified type D70.9 ; Type 2 diabetes mellitus without complication, with no history of insulin use E11.9 and Thyroid nodule E04.1 Chris Sanchez MD [address] [place] [id number] 06/24/2024 Chris Sanchez Neutropenia D70.9 Chris Sanchez MD [address] [place] [address] [id number] 11/18/2024 Chris Sanchez Pure hypercholestero lemia E78.00 and Type 2 diabetes mellitus without complication, with no history of insulin use E11.9 Chris Sanchez MD [address] [id number] 01/14/2024 Chris Sanchez Type 2 diabetes heidy itus without complication, with no history of insulin use E11.9 ; Pure hypercholesterolemia E78.00 and History of thyroidectomy E89.0 Chris Sanchez MD [address] [place] [id number] 05/27/2024 Chris Sanchez Cancer of thyroid C7 3 ; Annual physical exam Z00.00 ; Type 2 diabetes mellitus without complication, with no history of insulin use E11.9 ; Pure hypercholesterolemia E78.00 ; Neutropenia D70.9 ; Rectal bleeding K62.5 ; Essential hypertension I10 ; Colon cancer screening Z12.11 and Depression screening Z13.31 Chris Sanchez MD [address] [place] [id number] 08/26/2024 Chris Sanchez Neutropenia D70.9 an d Thyroid cancer C73 Chris Sanchez MD [address] [place] [id number] 02/23/2024 Chris Sanchez MD [address] [place] [id number] 05/20/2024 Chris Sanchez MD [address] [place] [id number] 11/18/2024 Chris Sanchez Pure hypercholestero lemia E78.00 Assessments Encounter Date Diagnosis (ICD Code) Assessment Notes Treatment Notes Treatment Clinical Notes Section Notes 01/08/2024 Pure hypercholesterolemia (ICD-10 - E78.00) 01/08/2024 Encounter for immunization (ICD-10 - Z23) 05/20/[address] ine general physical examination (ICD-10 - Z00.00) 06/24/2024 Neutropenia (ICD-10 - D70.9) 11/18/2024 Pure hypercholesterolemia (ICD-10 - E78.00) 01/14/2024 Type 2 diabetes mellitus without complication, with no history of insulin use (ICD-10 - E11.9) good a1c and the weight is up from being under active, will continue to monitor 01/14/2024 Pure hypercholesterolemia (ICD-10 - E78.00) stable, at goal, will continue current regiment 05/27/2024 Cancer of thyroid (ICD-10 - C73) need note from dr allison and need pet scan/PHONE CALL IN TO [facility] RECORDS FOR DOCS 05/27/2024 Annual physical exam (ICD-10 - Z00.00) labs reviewed and discussed with patient 08/26/2024 Neutropenia (ICD-10 - D70.9) is doing well with the white count coming up 08/26/2024 Thyroid cancer (ICD- 10 - C73) need notes from endocrine at [facility]/REQUEST MADE TO [facility] RECORDS 11/18/2024 Pure hypercholesterolemia (ICD-10 - E78.00) 01/08/2024 Type 2 diabetes mellitus without complication, with no history of insulin use (ICD-10 - E11.9) 05/20/2024 Essential hypertensi on (ICD-10 - I10) 11/18/2024 Type 2 diabetes mellitus without complication, with no history of insulin use (ICD-10 - E11.9) 01/14/2024 History of thyroidectomy (ICD-10 - E89.0) need results of thyroid surgery at [facility]. dr pena is going to see endocrine in 2 weeks/ REQUEST MADE TO HIM@ [facility] FOR DOCUMENTS 05/27/2024 Type 2 diabetes [...] CONTRAST 02/14/2016 US THYROID BIOPSY FNA GUIDE 07/10/2023 US THYROID BIOPSY FNA GUIDE 06/12/2023 Liver Panel 11/18/2024 Glucose Fasting 11/18/2024 Lipid Panel with Reflex 11/18/2024 US thyroid 05/26/2023 Next Appt Details Provider Name:Chris Bowers ier, 12/06/2024 01:30:00 PM, [address], [address], [place], [place], [phone], Provider Name:Chris Bowers roseannr, 05/22/2025 07:30:00 AM, [address], [address], [place], [place], [phone], Provider Name:Chris Bowers ier, 05/29/2025 09:30:00 AM, [address], [address], [place], [place], [phone], Insurance Providers Payer Name Payer Address Payer Phone Subscriber Number Group Number Insured Name Patient Relationship to Insured Coverage Start Date Coverage End Date [employer] [address] [place], [place] [id number] Shay Nowak Self - patient is the insured MEDICARE NHIC [address] [place] [address] [id number] Shay Nowak Self - patient is the [...]
--- OUTSIDE RECORDS SUMMARY | 2024-11-18 13:08 | XMS_ITS | Patient Health Record ---
Author Organization [facility] Address [address] [place] [address] Care Team Providers Care Industrial Aerial Installer Name Role Phone Chris Sanchez MD Primary Care Provider Quan Pedro Unavailable [phone] Allergies No Known Allergies Reason For Referral No Information Medications Medication SIG (Take, Route, Frequency, Duration) Notes Start Date End Date Status Zolpidem Tartrate 5 MG 1 tablet at bedti ks as needed Orally Once a day Active [...] Problem Status W/U Status Risk Notes Problem 50177624 Rectal bleeding (K62.5) Active confirmed Problem 369162632 Encounter for screening for malignant neoplasm of colon (Z12.11) Active confirmed Problem 608044250 History of adenomatous polyp of colon (Z86.010) Active confirmed Problem Preprocedural examination (670303086504684) Preprocedural examination (Z01.818) Active confirmed Problem 38487028 Bleeding hemorrhoids (K64.9) Active confirmed Vital Signs Temperature 97.3 degrees Fahrenheit 09/15/2024 Blood pressure diastolic 01 mm Hg 09/15/2024 Height 66 in 09/15/2024 Blood pressure systolic 001 mm Hg 09/15/2024 Weight 195.6 lbs 09/15/2024 BMI 31.57 kg/m2 09/15/2024 Procedures Procedure Date Ordered Date Performed Result Body Sit e COLONOSCOPY 09/15/2024 N/A Encounters Encounter Location Date Provider Diagnosis [facility] [address] [place] [address] 09/15/2024 Quan Patel History of adenomato us [...] Provider Name:Quan Patel , 12/14/2024 07:30:00 AM, [address] [place] [address], [phone], Insurance Providers Payer Name Payer Address Payer Phone Subscriber Number Group Number Insured Name Patient Relationship to Insured Coverage Start Date Coverage End Date [facility] [address] [place], [place] [id number] PHYLLIS WHEELER Self - patient is the insured Medical (General) History Medical History History ICD Code Sigmoid diverticulosis HTN Hyperlipidemia Denies NE,DM,CVA,Lung disease,renal dise ase Colonoscopies in 2000 and 26 08- neg except diverticulosis and internal/external hemorrhoids Sleep apnea-uses a CPAP mask Colonoscopy 04/2012 with a sm all tubular adenoma, diverticulosis, internal/external hemorrhoids Prostate cancer 2018 - XRT Thyroid cancer- 2023- surgery as below- followed by [facility] Negative colonoscopy in 10/2019 except fo r some XRT changes in the rectum Surgical History Surgery Date(Month/Year) thyroidectomy, complete Left knee replacement in 10/[address] Welch Hemorrhoidectomy
[2024-11-18 15:44] LABS: Reflex LDLD? No
== END 2024-11-18 11:09 | disposition home or self-care (01) ==
LOC: HO.LNP 11:08
PROVIDERS: Visit Provider Internal Medicine
DX: E11.9 Type 2 diabetes mellitus without complications (principal); E78.00 Pure hypercholesterolemia, unspecified
CPT/HCPCS: 80061; 80076; 82947; 83036

== ENCOUNTER 2024-12-14 06:27 | Day surgery (SDC) | payer MEDICARE, SELFPAY ==
--- OUTSIDE RECORDS SUMMARY | 2024-05-20 04:29 | XMS_ITS ---
Author Organization Chris Sanchez MD Address [address] [place] [phone] Care Team Providers Care Online Producer Name Role Phone Chris Sanchez Primary Care Provider [phone] REASON FOR VISIT RF Zolpidem Medications Medication SIG (Take, Route, Fr equency, Duration) Notes Start Date End Date Status Zolpidem Tartrate 5 MG TAKE 1 TABLET BY MOUTH EVERY DAY FOR 90 DAYS Orally Once a day for 90 days 05/20/2024 Active Encounters Encounter Location Date Provider Diagnosis Chris Sanchez MD [address] [place] [phone] 05/20/2024 Chris Sanchez Plan Of Treatment Medication Medication Name Sig Start Date Stop Date Notes Zolpidem Tartrate 5 MG TAKE 1 TABLET BY MOUTH EVERY DAY FOR 90 DAYS Orally Once a day for 90 days 05/20/2024 Next Appt Details Provider Name:Chris Bowers ier, 11/18/2024 07:45:00 AM, [address] [place] [address], [address], [place], [place], [phone], Provider Name:Chris Bowers ier, 11/25/2024 10:00:00 AM, [address] [place] [address], Suite [facility], [place], [place], [phone], Provider Name:Chris Bowers ier, 05/22/2025 07:30:00 AM, [address] [place] [address], Suite [facility], [place], [place], [phone], Provider Name:Chris Bowers ier, 05/29/2025 09:30:00 AM, [address] [place] [address], Suite [facility], [place], [place], [phone], Progress Notes * Shay WHEELER RDOB:[birth year] (74 yo M)Acc No.[id number]:05/20/2024 Patient: Shay AMEZQUITA :1950 A ge:74 Y S ex:Male Address:[address] [place] [address], [place] [id number] * Refills Refill Zolpidem Tartrate Tablet, 5 MG, Orally, 90, TAKE 1 TABLET BY MOUTH EVERY DAY FOR 90 DAYS, Once a day, 90 days, Refills=0 * true * Date: Generated for Milli fabian/Neisha/Euniceitting on: 0 11/10/2024 11:15 AM EDT
--- OUTSIDE RECORDS SUMMARY | 2024-05-27 04:30 | XMS_ITS ---
Author Organization Chris Sanchez MD Address [address] [place], [place] [id number] Care Team Providers Care Loss Prevention Coordinator Name Role Phone Chris Sanchez Primary Care Provider [phone] Allergies Allergen (clinical drug ingredient) Drug/Non Drug Allergy documented on EMR Reaction Allergy Type Onset Date Status atorvastatin Lipitor myalgia Drug Allergy Acti ve Reason For Referral Reason SCREEN FOR COLON CAN CER Diagnosis 1 Screen for colon can cer (Z12.11) Referral Organization Chris Sanchez MD Referring Provider First Name Chris Referring Provider Last Name Laura Referring Provider Speciality Internal M edicine Referred Provider Quan Garcia Referred Provider Specialty Gastroentero logy General Notes Brenna Champagne 05/27/2024 08:59:27 AM >MR KYLE IS DUE FOR COLONOSCOPY , FAX REFFERAL TO DR GARCIA OFFICE, Brenna Champagne 06/03/2024 10:34:16 AM >APPT SCHEDULED 7/10/25 AT 10:20AM Referral Priority Routine Referral Appointment Date 09/15/2024 REASON FOR VISIT ANNUAL EXAM Medications Medication SIG (Take, Route, Frequency, Duration) Notes Start Date End Date Status Zolpidem Tartrate 5 MG TAKE 1 TABLET BY MOUTH EVERY DAY FOR 90 DAYS Orally Once a day for 90 days 05/20/2024 Active Simvastatin 80 MG TAKE 1 TABLET ONCE DAILY ATBEDTIME Active Levothyroxine Sodium 137 MCG 1 tablet in the morning on an empty stomach Orally Once a day for 90 days Active Lisinopril-hydroCHLOROthia zide 20-12.5 MG TAKE 1 TABLET TWICE A DAY for 90 Active IBU 800 MG TAKE 1 TABLET THREE TIMES ADAY NEEDED for 90 Active Claritin 10 MG 1 tablet Orally Once a day for 30 day(s) Active Sildenafil Citrate 100 MG 1/2 tablet as needed Orally Once a day for 30 day(s) 09/28/2020 Not-Taking Social History Tobacco Use: Social History Observation Description Date Details (start date - stop date) Former Smoker NA - NA Tobacco Use/Smoking Question Answer Notes Patient is a former smoker How long has it been since y ou last smoked? > 10 years Additional Findings: Tobacco Non-User Fo rmer smoker, currently using no form of tobacco Alcohol Screen Question Answer Notes Did you have a drink containing alcohol in the p ast year? No Points 0 Interpretation Negative Problems Problem Type SNOMED Code ICD Code Onset Dates Problem Status W/U Status Risk Notes Problem Neutropenia (595776907) Neutropenia (D70.9) Active confirmed Vital Signs Blood pressure systolic 128 mm Hg 05/28/19 25 Blood pressure diastolic 60 mm Hg 025 Height 65.5 in 05/27/2024 Weight 200 lbs 05/27/2024 BMI 32.77 kg/m2 05/27/2024 Encounters Encounter Location Date Provider Diagnosis Chris Sanchez MD [address] [place], [place] [phone] 05/27/2024 Chris Sanchez Cancer of thyroid C7 3 ; Annual physical exam Z00.00 ; Type 2 diabetes mellitus without complication, with no history of insulin use E11.9 ; Pure hypercholesterolemia E78.00 ; Neutropenia D70.9 ; Rectal bleeding K62.5 ; Essential hypertension I10 ; Colon cancer screening Z12.11 and Depression screening Z13.31 Assessments Encounter Date Diagnosis (ICD Code) Assessment Notes Treatment Notes Treatment Clinical Notes Section Notes 05/27/2024 Cancer of thyroid (ICD-10 - C73) need note from dr allison and need pet scan/PHONE CALL IN TO BS MED RECORDS FOR DOCS 05/27/2024 Annual physical exam (ICD-10 - Z00.00) labs reviewed and discussed with patient 05/27/2024 Type 2 diabetes mellitus without complication, with no history of insulin use (ICD-10 - E11.9) well controlled, will continue current regiment 05/27/2024 Pure hypercholesterolemia (ICD-10 - E78.00) doing well on meds, will continue current regiment 05/27/2024 Neutropenia (ICD-10 - D70.9) is probably related to the MOLINA 05/27/2024 Rectal bleeding (ICD -10 - K62.5) will get colonoscopy this year. arrange with dr garcia 05/27/2024 Essential hypertensi on (ICD-10 - I10) stable, will continue current regiment 05/27/2024 Colon cancer screeni ng (ICD-10 - Z12.11) guaiac equivical 05/27/2024 Depression screening (ICD-10 - Z13.31) negative screen Plan Of Treatment Treatment Notes Assessment Notes Cancer of thyroid need note from dr sissy love and need pet scan/PHONE CALL IN TO BS MED RECORDS FOR DOCS Annual physical exam labs reviewed and d iscussed with patient Type 2 diabetes mellitus wit hout complication, with no history of insulin use well controlled, will continue current regiment Pure hypercholesterolemia doing well on meds, will continue current regiment Neutropenia is probably related to the MOLINA Rectal bleeding will get colonoscopy this year. arrange with dr garcia Essential hypertension stable, will cont inue current regiment Colon cancer screening guaiac equivical Depression screening negative screen Referrals Referral Date Details 05/27/2024 05/27/2024, SCREEN F OR COLON CANCER, Quan Garcia Next Appt Details Follow Up: 3 Months, Reason: Provider Name:Chris mojica, 11/18/2024 07:45:00 AM, [address] [place] [address], [address], [place], [place], [phone], Provider Name:Chris mojica, 11/25/2024 10:00:00 AM, [address] [place] [address], [address], [place], [phone], Provider Name:Chris Bowers yunior, 05/22/2025 07:30:00 AM, [address] [facility], [address], [place], [phone], Provider Name:Chris Bowers roesannr, 05/29/2025 09:30:00 AM, [address] [facility], [address], [place], [phone], Progress Notes * Shay NOWAK RDOB:[birth year] (74 yo M)Acc No.[id number]:05/27/2024 Progress Notes Patient: Shay AMEZQUITA Provider: Jonny Sanchez MD :1950 A ge:74 Y S ex:Male Date:05/27/2024 Address:[address] [place] [address] [id number] Subjective: * Chief Complaints: * A NNUAL EXAM * HPI: D epression Screening: PHQ-9 L ittle interest or pleasure in doing things S everal days, F eeling down, depressed, or hopeless S everal days, T rouble falling or staying asleep, or sleeping too much N early every day, F eeling tired or having little energy N early every day, P oor appetite or overeating N early every day, F eeling bad about yourself or that you are a failure, or have let yourself or your family down N ot at all, T rouble concentrating on things, such as reading the newspaper or watching television N ot at all, M oving or speaking so slowly that other people could have noticed; or the opposite, being so fidgety or restless that you have been moving around a lot more than usual N ot at all, T houghts that you would be better off or of hurting yourself in some way N ot at all, T otal Score 1 1, I nterpretation M oderate Depression. I nterpretation and Intervention D epression Screening Findings N egative, F ollow-Up for Depression : review of PHQ-9 found negative result, no follow-up needed. C ommunication Needs: Communication Needs D oes the patient have a hearing impairment N o, D oes the patient have a vision impairment? Y es, I f yes, what is the vision impairment? G lasses, D oes the patient have a cognition impairment? N o. F all Risk: History H ave you had any falls with injury in the past year? N o, H ave you had two or more falls in the past year? N o. S LOW Questions: SDOH Questions I n the past year have you been worried about losing housing? N o, I n the past year have you or any family members you live with been unable to get any of the following when it was really needed? Check all that apply: N one. S ymptom(s): patirnt is a 74 yo male here for annual visit with review of recent labs and follow up of chronic issues. * ROS: G eneral/Constitutional: Change in appetite d enies. C hills d enies. F ever d enies. O phthalmologic: Blurred vision d enies. D ischarge d enies. P ain d enies. E NT: Decreased hearing d enies. S ore throat d enies.?Swollen glands d enies. E ndocrine: Cold intolerance d enies. E xcessive thirst d enies. H eat intolerance d enies. W eight loss d enies. R espiratory: Cough d enies. S hortness of breath at rest d enies. S hortness of breath with exertion d enies. W heezing d enies. C ardiovascular: Chest pain at rest d enies. C hest pain with exertion?denies. I rregular heartbeat d enies. S hortness of breath d enies. ? G astrointestinal: Abdominal pain d enies. C hange in bowel habits d enies. D iarrhea d enies. N ausea d enies. R ectal bleeding d enies. V omiting d enies . G enitourinary: Blood in urine d enies. D ifficulty urinating d enies. F requent urination d enies. M usculoskeletal: Painful joints d enies. W eakness d enies. ? S kin: Dry skin d enies. I tching d enies. D enies?Mole(s), changes in moles, new moles or any lesions of concern. D enies P hotosensitivity. R charis d enies. N eurologic: Dizziness d enies. F ainting d enies. H eadache?denies. * Medical History: * Surgical History: * Hospitalization/Major Diagno stic Procedure: * Family History: F ather: 81 yrs. M other: 81 yrs. 1 brother(s) , 1 sister(s) . 1 son(s) , 2 daughter(s) . . Mother-Cardiac Father-Cancer 1 brother-suicide 1 sister breast cancer, Denies mental health/substance abuse family history, No pertinent family medical history, No pertinent family medical history. * Social History: T obacco Use: T obacco Use/Smoking P atient is a f ormer smoker, H ow long has it been since you last smoked? > 10 years, A dditional Findings: Tobacco Non-User F ormer smoker, currently using no form of tobacco. D rugs/Alcohol: A lcohol Screen D id you have a drink containing alcohol in the past year? N o, P oints 0 , I nterpretation N egative. M iscellaneous: C affeine: yes, frequency:, 2-3 cups per day. Children: yes. Exercise: no. Home smoke detector use: yes. Housing: owning. Living with: spouse. Marital status: . Occupation: works part-time. Pets: none. Travel outside of the [place]: no. * Medications: T akingClaritin 10 MG Tablet 1 tablet Orally Once a day Lisinopril- hydroCHLOROthiazide 20-12.5 MG Tablet TAKE 1 TABLET TWICE A DAY IBU 800 MG Tablet TAKE 1 TABLET THREE TIMES ADAY NEEDED Simvastatin 80 MG Tablet TAKE 1 TABLET ONCE DAILY ATBEDTIME Levothyroxine Sodium 137 MCG Tablet 1 tablet in the morning on an empty stomach Orally Once a day Zolpidem Tartrate 5 MG Tablet TAKE 1 TABLET BY MOUTH EVERY DAY FOR 90 DAYS Orally Once a day Taking Claritin 10 MG Tablet 1 tablet Orally Once a day Taking Lisinopril-hydroCHLOROthiazide 20-12.5 MG Tablet TAKE 1 TABLET TWICE A DAY Taking IBU 800 MG Tablet TAKE 1 TABLET THREE TIMES ADAY NEEDED Taking Simvastatin 80 MG Tablet TAKE 1 TABLET ONCE DAILY ATBEDTIME Taking Levothyroxine Sodium 137 MCG Tablet 1 tablet in the morning on an empty stomach Orally Once a day Taking Zolpidem Tartrate 5 MG Tablet TAKE 1 TABLET BY MOUTH EVERY DAY FOR 90 DAYS Orally Once a day Not-Taking/PRNSildenafil Citrate 100 MG Tablet 1/2 tablet as needed Orally Once a day Medication List reviewed and reconciled with the patientNot-Taking/PRN Sildenafil Citrate 100 MG Tablet 1/2 tablet as needed Orally Once a day Medication List reviewed and reconciled with the patient * Allergies: L ipitor: myalgiayes[Allergies Verified] Objective: * Vitals: H t: 65.5, Wt: 200, BMI:32.77, BP:128/60, Wt-k.72. * P ast Orders: L ab:Microalbumin, Random (Order Date - 05/20/2024) (Collection Date & Time - 05/20/2024 08:00 AM) Value Reference Range Creatinine Urine 86.97 - mg/dL Microalbumin Urine 6.0 - mg/L Microalbum Creatinine Ratio Ur 6.8 <30 - ug/ mg cr L ab:Hemoglobin A1c (Order Date - 05/20/2024) (Collection Date & Time - 05/20/2024 08:00 AM) Value Reference Range Hemoglobin A1c % 5.5 <6.0 - % Estimated Average Glucose 111 - mg/dL L ab:Comprehensive Mather. Panel Fast (Order Date - 05/20/2024) (Collection Date & Time - 05/20/2024 08:00 AM) Value Reference Range Sodium 143 135-145 - mmol/L Bilirubin Total 0.6 0.0-1.0 - mg/dL Aspartate Amino Transferase 32 5-37 - U/L Alanine Aminotransferase 40 0-40 - U/L Total Protein 7.2 6.5-8.0 - g/dL Albumin Level 4.1 3.5-5.0 - g/dL Alkaline Phosphatase 48 39-117 - U/L Potassium 4.0 3.3-5.1 - mmol/L Chloride 107 96-108 - mmol/L Carbon Dioxide 28 22-29 - mmol/L Anion Gap 12 12-20 - Blood Urea Nitrogen 25 H 9-16 - mg/dL Creatinine 0.93 0.5-1.4 - mg/dL Estimated Glomerular Filt Rate > 60 - Glucose Fasting 106 H 60-99 - mg/dL Calcium 9.3 8.4-10.2 - mg/dL L ab:UA ClnCatch+Micro w/rflx Cult (Order Date - 05/20/2024) (Collection Date & Time - 05/20/2024 08:00 AM) Value Reference Range Color Urine Yellow - Appearance Urine Clear - PH 6.0 5.0-9.0 - Glucose Urine UA Negative Negative - mg/dL Urine Blood Negative Negative - Specific [place] - Urine 1.015 1.005-1.025 - Urine Protein Negative Neg-Trace - mg/dL Urine Ketones Negative Negative - mg/dL Nitrite Urine Negative Negative - Leukocyte Esterase Urine Negative Negative - RBC Urine 0-2 0-2 - /HPF WBC Urine 0-5 0-5 - /HPF Squamous Epithelial Cell Urine 0-2 0-2 - /HP F Bacteria Urine None Seen None Seen - Hyaline Casts Urine 0-2 0-2 - /LPF L ab:Lipid Panel (Order Date - 05/20/2024) (Collection Date & Time - 05/20/2024 08:00 AM) Value Reference Range Triglycerides 113 <150 - mg/dL Cholesterol 149 <200 - mg/dL LDL Cholesterol Calculated 84 <100 - mg/dL HDL Cholesterol 43 >40 - mg/dL L ab:PSA,Total (Free>4and<10) (Order Date - 05/20/2024) (Collection Date & Time - 05/20/2024 08:00 AM) Value Reference Range PSA,Total (Free>4and<10) < 0.10 0.00-4.00 - ng/ mL L ab:TSH reflex Free T4 (Order Date - 05/20/2024) (Collection Date & Time - 05/20/2024 08:00 AM) Value Reference Range TSH reflex Free T4 3.49 0.32-4.0 - uIU/mL * Examination: G eneral Examination: GENERAL APPEARANCE: w ell developed, well nourished, in no acute distress. HEAD: n ormocephalic, atraumatic. EYES: p upils equal, round, reactive to light and accommodation, sclera non-icteric. EARS: n ormal. ORAL CAVITY: m ucosa moist. THROAT: c lear. NECK/THYROID: n mack supple, full range of motion, no cervical lymphadenopathy, no bruits. SKIN: w arm and dry, no suspicious lesions. HEART: r egular rate and rhythm, S1, S2 normal, no murmurs.? LUNGS: c lear to auscultation bilaterally. ABDOMEN: s oft, nontender, nondistended, bowel sounds present, normal, no organomegaly , no masses palpable. RECTAL EXAM: n ormal tone, no external hemorrhoids, no masses palpable, prostate normal, stool looked like blood but tested equivical. MALE GENITOURINARY: c ircumcised, no penile lesions or discharge, testes descended bilaterally. EXTREMITIES: n o clubbing, cyanosis, or edema. NEUROLOGIC: n onfocal, motor strength normal upper and lower extremities, sensory exam intact. Assessment: * Assessment: 1. A nnual physical exam - Z00.00 (Primary) 2 . C ancer of thyroid - C73? 3. T ype 2 diabetes mellitus without complication, with no history of insulin use - E11.9 4 . P ure hypercholesterolemia - E78.00 5 . N eutropenia - D70.9 6 . R ectal bleeding - K62.5 7 . E ssential hypertension - I10 8 . C olon cancer screening - Z12.11 9 . D epression screening - Z13.31 Plan: * Treatment: 2. C ancer of thyroid Notes: need note from dr allison and need pet scan/PHONE CALL IN TO MED RECORDS FOR DOCS ? 3. T ype 2 diabetes mellitus without complication, with no history of insulin use Notes: well controlled, will continue current regiment 4. P ure hypercholesterolemia Notes: doing well on meds, will continue current regiment 5. N eutropenia L AB: Complete Blood Count Auto Diff (Ordered for 06/24/2024) Notes: is probably related to the MOLINA 6. R ectal bleeding Notes: will get colonoscopy this year. arrange with dr garcia 7. E ssential hypertension Notes: stable, will continue current regiment 8. C olon cancer screening Notes: guaiac equivical 9. D epression screening Notes: negative screen 10. O thers Referral To:Quan Garcia [facility] Reason:SCREEN FOR COLON CANCER * Procedure Codes: * Preventive Medicine: Diabetes Care Plan: P atient Lifestyle Goals N eeds to maintain diet control.?Treatment Goals A 1C< 7. B arriers N o specific barriers, doing well. S elf-Managment Plan I ncrease light exercise to 3 times a week for 30 minutes. E xpected Outcome maintaining stable blood sugar levels within a target range. * Follow Up: 3 Months * * Sign off status: Completed true * Provider: Jonny Sanchez MD Date: 0 05/27/2024 Generated for Milli fabian/Neisha/Euniceitting on: 0 11/10/2024 11:14 AM EDT History and Physical Notes * HPI (History of Present Illness) Category Sub-Category Detail Notes Category Not es Symptom(s) patirnt is a 74 yo male here for annual visit with review of recent labs and follow up of chronic issues. Depression Screening PHQ-9 Little inte rest or pleasure in doing things: Several days Feeling down, depressed, or hopeless: Se veral days Trouble falling or staying asleep, or sl eeping too much: Nearly every day Feeling tired or having little energy: N early every day Poor appetite or overeating: Nearly ever y day Feeling bad about yourself o r that you are a failure, or have let yourself or your family down: Not at all Trouble concentrating on thi ngs, such as reading the newspaper or watching television: Not at all Moving or speaking so slowly that other people could have noticed; or the opposite, being so fidgety or restless that you have been moving around a lot more than usual: Not at all Thoughts that you would be b vilma off or of hurting yourself in some way: Not at all Total Score: 11 Interpretation: Moderate Depression Interpretation and Intervention Depression Quianae shekhar Findings: Negative Follow-Up for Depression: : review of PH Q-9 found negative result, no follow-up needed SDOH Questions SDOH Questions In the past year have you been worried about losing housing?: No In the past year have you or any family members you live with been unable to get any of the following when it was really needed? Check all that apply:: None Fall Risk History Have you had any falls with injury i n the past year?: No Have you had two or more falls in the year?: No Communication Needs Communication Needs Does the patient have a hearing impairment: No Does the patient have a vision impairmen t?: Yes If yes, what is the vision impairment?: Glasses Does the patient have a cognition impair ment?: No Examination Category Sub-Category Detail Notes Category Not es General Examination GENERAL APPEARANCE: well dev eloped, well nourished, in no acute distress HEAD: normocephalic, atrau matic EYES: pupils equal, round, reactive to light and accommodation, sclera non-icteric EARS: normal THROAT: clear NECK/THYROID: neck supple, full ra nge of motion, no cervical lymphadenopathy, no bruits HEART: regular rate and rhy thm, S1, S2 normal, no murmurs LUNGS: clear to auscultatio n bilaterally ABDOMEN: soft, nontender, non distended, bowel sounds present, normal, no organomegaly , no masses palpable NEUROLOGIC: nonfocal, motor stre ngth normal upper and lower extremities, sensory exam intact SKIN: warm and dry, no hayley picious lesions EXTREMITIES: no clubbing, cyanosi s, or edema MALE GENITOURINARY: circumcised, no peni le lesions or discharge, testes descended bilaterally RECTAL EXAM: normal tone, no exte rnal hemorrhoids, no masses palpable, prostate normal, stool looked like blood but tested equivical ORAL CAVITY: mucosa moist Consultation Request Notes Referral Date Referring Provider Referred Provider Not es 05/27/2024 Chris Sanchez Robert SCREEN FOR COLON CANCER
--- OUTSIDE RECORDS SUMMARY | 2024-06-20 04:00 | XMS_ITS ---
Author Organization Chris Sanchez MD Address [address] [place] [phone] Care Team Providers Care Orthopedic Technician Name Role Phone Chris Sanchez Primary Care Provider REASON FOR VISIT repeat CBC in 1 month Encounters Encounter Location Date Provider Diagnosis Chris Sanchez MD [address] [facility] [address] [place] [phone] 06/20/2024 Chris Sanchez Plan Of Treatment Next Appt Details Provider Name:Chris mojica, 11/18/2024 07:45:00 AM, [address] [place] [address], [address], [phone], Provider Name:Chris mojica, 11/25/2024 10:00:00 AM, [address] [place] [address], [address], [phone], Provider Name:Chris mojica, 05/22/2025 07:30:00 AM, [address], [address], [place], [phone], Provider Name:Chris Bowers ier, 05/29/2025 09:30:00 AM, [address], [address], [place], [phone], Progress Notes * Shay WHEELER RDOB:[birth year] (74 yo M)Acc No.[id number]:06/20/2024 Progress Note Patient: Shay AMEZQUITA Provider: Jonny Sanchez MD :1950 A ge:74 Y S ex:Male Date:06/20/2024 Address:[address] [place] [address], [id number] Subjective: * Chief Complaints: * 1 . repeat CBC in 1 month. * Medical History: Objective: * Vitals: Assessment: Plan: * Treatment: * * The named appointment provid er may or may not be the originator of this progress note, and it is not deemed complete until electronically signed by the appointment provider. Sign off status: Pending * Provider: Jonny Sanchez MD Date: 06/20/2024 Generated for Milli fabian/Neisha/Euniceitting on: 11/10/2024 11:15 AM EDT
--- OUTSIDE RECORDS SUMMARY | 2024-06-24 03:15 | XMS_ITS ---
Author Organization Chris Sanchez MD Address [address] [place] [phone] Care Team Providers Care Engineering Illustrator Name Role Phone Chris Sanchez Primary Care Provider Results Component Value Reference Range Notes Complete Blood Count Auto Di ff Reviewed date:06/24/2024 07:20:25 PM Interpretation: Performing Lab:[facility], [address] [place] [phone] Notes/Report: White Blood Count 4.2 4.8-10.8 X10*3/uL [...] Location Date Provider Diagnosis Chris Sanchez MD [address] [place] [phone] 06/24/2024 Chris Sanchez Neutropenia D70.9 Assessments Encounter Date Diagnosis (ICD Code) Assessment Notes Treatment Notes Treatment Clinical Notes Section Notes 06/24/2024 Neutropenia (ICD-10 - D70.9) Plan Of Treatment Next Appt Details Provider Name:Chris mojica, 11/18/2024 07:45:00 AM, [address] [place] [address], [address], [phone], Provider Name:Chris mojica, 11/25/2024 10:00:00 AM, [address] [place] [address], [address], [phone], Provider Name:Chris mojica, 05/22/2025 07:30:00 AM, [address] [place] [address], [address], [phone], Provider Name:Chris Bowers ier, 05/29/2025 09:30:00 AM, [address], [address], [place], [phone], Progress Notes * Shay WHEELER RDOB:[birth year] (74 yo M)Acc No.[id number]:06/24/2024 Progress Note Patient: Shay AMEZQUITA Provider: Jonny Sanchez MD :1950 A ge:74 Y S ex:Male Date:06/24/2024 Address:[address] [place] [address] [phone] Subjective: * Chief Complaints: * 1 . [...] Pending * Provider: Jonny Sanchez MD Date: 06/24/2024 Generated for Milli fabian/Neisha/Euniceitting on: 0 11/10/2024 11:15 AM EDT
--- OUTSIDE RECORDS SUMMARY | 2024-08-26 06:15 | XMS_ITS ---
Author Organization Chris Sanchez MD Address [address] [place], [place] [phone] Care Team Providers Care Client Support Consultant Name Role Phone Chris Sanchez Primary Care Provider Allergies Allergen (clinical drug ingredient) Drug/Non Drug Allergy documented on EMR Reaction Allergy Type Onset Date Status atorvastatin Lipitor myalgia Drug Allergy Acti ve REASON FOR VISIT 3 MO F/U Medications Medication SIG (Take, Route, Frequency, Duration) Notes Start Date End Date Status IBU 800 MG TAKE 1 TABLET THREE TIMES ADAY NEEDED for 90 Active Lisinopril-hydroCHLOROthia zide 20-12.5 MG TAKE 1 TABLET TWICE A DAY for 90 Active Claritin 10 MG 1 tablet Orally Once a day for 30 day(s) Active Sildenafil Citrate 100 MG 1/2 tablet as needed Orally Once a day for 30 day(s) 09/28/2020 Not-Taking Zolpidem Tartrate 5 MG TAKE 1 TABLET BY MOUTH EVERY DAY for 90 08/24/2024 Active Levothyroxine Sodium 137 MCG 1 tablet in the morning on an empty stomach Orally Once a day for 90 days Active Simvastatin 80 MG TAKE 1 TABLET ONCE DAILY ATBEDTIME Active Problems Problem Type SNOMED Code ICD Code Onset Dates Problem Status W/U Status Risk Notes Problem Thyroid cancer (083395357) Thyroid cancer (C73) Active confirmed Vital Signs Blood pressure systolic 138 mm Hg 08/27/19 25 Blood pressure diastolic 64 mm Hg 025 Height 65.5 in 08/26/2024 Weight 200 lbs 08/26/2024 BMI 32.77 kg/m2 08/26/2024 Encounters Encounter Location Date Provider Diagnosis Chris Sanchez MD [address] [place] [phone] 08/26/2024 Chris Sanchez Neutropenia D70.9 and Thyroid cancer C73 Assessments Encounter Date Diagnosis (ICD Code) Assessment Notes Treatment Notes Treatment Clinical Notes Section Notes 08/26/2024 Neutropenia (ICD-10 - D70.9) is doing well with the white count coming up 08/26/2024 Thyroid cancer (ICD-10 - C73) need notes from endocrine at [facility]/REQUEST MADE TO [facility] RECORDS Plan Of Treatment Treatment Notes Assessment Notes Neutropenia is doing well with t he white count coming up Thyroid cancer need notes from endo crine at [facility]/REQUEST MADE TO [facility] RECORDS Next Appt Details Follow Up: 3 Months, Reason: Provider Name:Chris mojica, 11/18/2024 07:45:00 AM, [address] [place] [address], [address], [phone], Provider Name:Chris mojica, 11/25/2024 10:00:00 AM, [address] [place] [address], [address], [phone], Provider Name:Chris mojica, 05/22/2025 07:30:00 AM, [address] [place] [address], [address], [phone], Provider Name:Chris mojica, 05/29/2025 09:30:00 AM, [address] [place] [address], [address], [phone], Progress Notes * Shay WHEELER RDOB:[birth year] (74 yo M)Acc No.[id number]:08/26/2024 Progress Notes Patient: Shay AMEZQUITA Provider: Jonny Sanchez MD :1950 A ge:74 Y S ex:Male Date:08/26/2024 Address:[address] [place] [id number] Subjective: * Chief Complaints: * 3 MO F/U * HPI: S ymptom(s): patient is a 74 yo male here for 3 month follow up visit. * ROS: G eneral/Constitutional: Denies C hills. D enies F atigue. D enies F ever. D enies H eadache. E NT: Denies S ore throat. R espiratory: Denies C ough. D enies S hortness of breath at rest. D enies S hortness of breath with exertion. G astrointestinal: Denies D iarrhea. D enies N ausea. * Medical History: * Surgical History: * Hospitalization/Major Diagno stic Procedure: * Medications: T akingClaritin 10 MG Tablet [...] TAKE 1 TABLET BY MOUTH EVERY DAY Taking Claritin 10 MG Tablet 1 tablet [...] TAKE 1 TABLET BY MOUTH EVERY DAY Not-Taking/PRNSildenafil Citrate 100 MG Tablet 1/2 tablet as needed Orally Once a day Medication List reviewed and reconciled with the patientNot-Taking/PRN Sildenafil Citrate 100 MG Tablet 1/2 tablet as needed Orally Once a day Medication List reviewed and reconciled with the patient * Allergies: L ipitor: myalgiayes[Allergies Verified] Objective: * Vitals: H t: 65.5, Wt: 200, BMI:32.77, BP:138/64, Wt-k.72. * Examination: G eneral Examination: GENERAL APPEARANCE: a lert, well hydrated, in no distress.? HEAD: n ormocephalic. EYES: n ormal. SKIN: g ood turgor. HEART: r egular rate and rhythm, no murmurs, rubs, gallops.? LUNGS: n o wheezes, rales, rhonchi, good air movement, clear to auscultation bilaterally. Assessment: * Assessment: 1. N eutropenia - D70.9 (Primary) 2 . T hyroid cancer - C73 ? Plan: * Treatment: 2. T hyroid cancer Notes: need notes from endocrine at [facility]/REQUEST MADE TO [facility] RECORDS * Procedure Codes: * Follow Up: 3 Months * * Sign off status: Completed true * Provider: Jonny Sanchez MD Date: 0 08/26/2024 Generated for Milli fabian/Neisha/Euniceitting on: 0 11/10/2024 11:15 AM EDT History and Physical Notes * HPI (History of Present Illness) Category Sub-Category Detail Notes Category Not es Symptom(s) patient is a 74 yo male here for 3 month follow up visit Examination Category Sub-Category Detail Notes Category Not es General Examination GENERAL APPEARANCE: alert, w ell hydrated, in no distress HEAD: normocephalic EYES: normal HEART: regular rate and rhy thm, no murmurs, rubs, gallops LUNGS: no wheezes, rales, r honchi, good air movement, clear to auscultation bilaterally SKIN: good turgor
--- OUTSIDE RECORDS SUMMARY | 2024-11-10 11:14 | XMS_ITS | Patient Health Record ---
Author Organization Chris Sanchez MD Address [address] [place], [place] [id number] Care Team Providers Care Custom Studio Coordinator Name Role Phone Chris Sanchez Primary Care Provider Allergies Allergen (clinical drug ingredient) Drug/Non Drug Allergy documented on EMR Reaction Allergy Type Onset Date Status atorvastatin Lipitor myalgia Drug Allergy Acti ve Results Component Value Reference Range Notes Liver Panel Reviewed date:01/08/2024 05:06:39 PM Interpretation: Performing Lab:[facility], [address] [place] [phone] Notes/Report: Bilirubin Total 0.4 0.0-1.0 mg/dL Bilirubin Direct 0.1 0.0-0.5 mg/dL Aspartate Amino Transferase 31 5-37 U/L Alanine Aminotransferase 31 0-40 U/L Total Protein 7.2 6.5-8.0 g/dL Albumin Level 4.2 3.5-5.0 g/dL Alkaline Phosphatase 52 39-117 U/L Glucose Fasting Reviewed date:01/08/2024 05:16:02 PM Interpretation: Performing Lab:[facility], [address] [place] [phone] Notes/Report: Glucose Fasting 113 60-99 mg/dL A fasting glucose from 100-125 mg/dl is considered impaired (pre-diabetes). Lipid Panel with Reflex Reviewed date:01/08/2024 05:16:12 PM Interpretation: Performing Lab:[facility], [address] [place] [phone] Notes/Report: Triglycerides 107 <150 mg/dL Desirable Triglyceride: [...] A1c Reviewed date:01/08/2024 12:50:06 PM Interpretation: Performing Lab:[address] [phone] Notes/Report: Hemoglobin A1c % 5.6 <6.0 % [...] average glucose, using the formula of the H8L-Qvpsyoa Average Glucose study (ADAG), Diabetes Care, Vol.31,#8, 2007 Complete Blood Count Auto Di ff Reviewed date:06/24/2024 09:53:02 AM Interpretation:06-24-2024 Performing Lab:[facility], [address] [place] [phone] Notes/Report: White Blood Count 3.8 4.8-10.8 X10*3/uL [...] NRBC Abs Auto 0.000 0.0-0.012 X10*3/uL Comprehensive [place]. Panel Fa st Reviewed date:05/20/2024 05:03:09 PM Interpretation: Performing Lab:[facility], [address] [place] [address] Notes/Report: Sodium 143 135-145 mmol/L Potassium 4.0 [...] Panel Reviewed date:05/20/2024 12:15:55 PM Interpretation: Performing Lab:[address] [phone] Notes/Report: Triglycerides 113 <150 mg/dL Desirable Triglyceride: [...] (Free>4and<10) Reviewed date:05/20/2024 12:11:38 PM Interpretation: Performing Lab:[address] [phone] Notes/Report: PSA,Total (Free>4and<10) < 0.10 0.00-4.00 ng/mL [...] T4 Reviewed date:05/20/2024 12:15:47 PM Interpretation: Performing Lab:[address] [phone] Notes/Report: TSH reflex Free T4 3.49 0.32-4.0 uIU/mL Microalbumin, Random Reviewed date:05/20/2024 05:06:43 PM Interpretation: Performing Lab:[facility], [address] [place] [phone] Notes/Report: Creatinine Urine 86.97 Microalbumin Urine 6.0 Microalbum/Creatinine Ratio Ur 6.8 <30 ug/mg cr Albumin/Creatinine Ratio Reference Ranges: Normal: < 30 ug/mg creatinine Microalbuminuria: 30 - 300 ug/mg creatinine Clinical Albuminuria: > 300 ug/mg creatinine Hemoglobin A1c Reviewed date:05/20/2024 12:17:15 PM Interpretation: Performing Lab:[address] [phone] Notes/Report: Hemoglobin A1c % 5.5 <6.0 % [...] average glucose, using the formula of the E0R-Mjjyaps Average Glucose study (ADAG), Diabetes Care, Vol.31,#8, Oct. 2007 UA ClnCatch+Micro w/rflx Cul t Reviewed date:05/20/2024 05:07:53 PM Interpretation: Performing Lab:[facility], [address] [place] [phone] Notes/Report: Urine, Clean Catch Color Urine Yellow Appearance Urine Clear PH 6.0 5.0-9.0 Glucose Urine UA Negative Negative mg/dL Urine Blood Negative Negative Specific [place] - Urine 1.015 1.005-1.025 Urine Protein Negative Neg-Trace mg/dL Urine Ketones Negative Negative mg/dL Nitrite Urine Negative Negative Leukocyte Esterase Urine Negative Negative RBC Urine 0-2 0-2 /HPF WBC Urine 0-5 0-5 /HPF Squamous Epithelial Cell Urine 0-2 0-2 /HPF Bacteria Urine None Seen None Seen Hyaline Casts Urine 0-2 0-2 /LPF Complete Blood Count Auto Di ff Reviewed date:06/24/2024 07:20:25 PM Interpretation: Performing Lab:[facility], [address] [place] [phone] Notes/Report: White Blood Count 4.2 4.8-10.8 X10*3/uL [...] X10*3/uL NRBC Abs Auto 0.000 0.0-0.012 X10*3/uL Hold Gold Reviewed date:01/08/2024 11:58:42 AM Interpretation: Performing Lab:[facility], [address] [place] [phone] Notes/Report: Hold Gold See Note Specimen held untested for 24 hours; Call to request Chemistry testing. Reason For Referral Reason SCREEN FOR COLON [...] TAKE 1 TABLET ONCE DAILY ATBEDTIME Active Immunizations Vaccine Route Administration Date Status Comme nts Flu Vaccine IM Intramuscular 12/31/2010 Administered Flu Vaccine IM Intramuscular 12/01/2011 Administered Flu Vaccine IM Intramuscular 12/25/2012 Administered [facility] Fluarix Quadrivalent IM Intramuscular 11/10/2013 Administe red Fluarix Quadrivalent IM Intramuscular 11/24/2014 Administe red PPSV23 (Pnemovax) IM Intramuscular 12/22/2014 Administered Fluarix Quadrivalent IM Intramuscular 2016 Administe red Prevnar 13 IM Intramuscular 02/14/2016 Administered Fluarix Quadrivalent Unknown 02/03/2017 Administered [facility]'s Fluarix Quadrivalent Unknown 01/19/2018 Administered pt was given the vaccine at [facility]. 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) Active confirmed Problem 832103859 History of hemat uria (Z87.448) Active confirmed Problem Thyroid cancer (955433420) Thyroid cancer (C73) Active confirmed Problem 267463621 Neutropenia, unspecified type (D70.9) Active confirmed Problem 317666231 Erectile dysfunc tion following radiation therapy (N52.35) Active confirmed Problem 276302960 Pure hypercholesterolemia (E78.00) Active confirmed Problem 194540600 Elevated PSA (R97.20) Active confirme d Problem Obstructive sleep apnea syndrome (07261299) JAN (obstructive sleep apnea) (G47.33) Active confirmed Problem 696759516 BMI 34.0-34.9,ad ult (Z68.34) Active confirmed Problem 742179366 Type 2 diabetes mellitus without complication, with no history of insulin use (E11.9) Active confirmed Problem 468528520 Cancer of thyroid (C73) Active confir med Vital Signs Blood pressure diastolic 64 mm Hg 08/26/2024 Height 65.5 in 08/26/2024 Blood pressure systolic 138 mm Hg 08/26/2024 Weight 200 lbs 08/26/2024 BMI 32.77 kg/m2 08/26/2024 Encounters Encounter Location Date Provider Diagnosis Chris Sanchez MD [address] [place] [id number] 01/08/2024 Chris Sanchez Pure hypercholestero lemia E78.00 ; Encounter for immunization Z23 and Type 2 diabetes mellitus without complication, with no history of insulin use E11.[address] Sanchez MD [address] [place] [id number] 05/20/2024 Chris Sanchez Blood tests for rout ine general physical examination Z00.00 ; Essential hypertension I10 ; Pure hypercholesterolemia E78.00 ; Elevated PSA R97.20 ; Neutropenia, unspecified type D70.9 ; Type 2 diabetes mellitus without complication, with no history of insulin use E11.9 and Thyroid nodule E04.[address] Sanchez MD [address] [place] [id number] 06/24/2024 Chris Sanchez Neutropenia D70.9 Chris Sanchez MD [address] [place] [id number] 01/14/2024 Chris Sanchez Type 2 diabetes heidy itus without complication, with no history of insulin use E11.9 ; Pure hypercholesterolemia E78.00 and History of thyroidectomy E89.0 Chris Sanchez MD [address] [place] [id number] 05/27/2024 Chris Sanchez Cancer of thyroid C7 3 ; Annual physical exam Z00.00 ; Type 2 diabetes mellitus without complication, with no history of insulin use E11.9 ; Pure hypercholesterolemia E78.00 ; Neutropenia D70.9 ; Rectal bleeding K62.5 ; Essential hypertension I10 ; Colon cancer screening Z12.11 and Depression screening Z13.31 Chris Sanchez MD [address] [place] [id number] 08/26/2024 Chris Sanchez Neutropenia D70.9 an d Thyroid cancer C73 Chris Sanchez MD [address] [place] [id number] 11/13/2023 Chris Sanchez MD [address] [place] [id number] 02/23/2024 Chris Sanchez MD [address] [id number] 05/20/2024 Chris Sanchez Assessments Encounter Date Diagnosis (ICD Code) Assessment Notes Treatment Notes Treatment Clinical Notes Section Notes 01/08/2024 Pure hypercholesterolemia (ICD-10 - E78.00) 01/08/2024 Encounter for immunization (ICD-10 - Z23) 05/20/[address] ine general physical examination (ICD-10 - Z00.00) 06/24/2024 Neutropenia (ICD-10 - D70.9) 01/14/2024 Type 2 diabetes mellitus without complication, with no history of insulin use (ICD-10 - E11.9) good a1c and the weight is up from being under active, will continue to monitor 01/14/2024 Pure hypercholesterolemia (ICD-10 - E78.00) stable, at goal, will continue current regiment 05/27/2024 Cancer of thyroid (ICD-10 - C73) need note from dr allison and need pet scan/PHONE CALL IN TO [facility] RECORDS FOR DOCS 05/27/2024 Annual physical exam (ICD-10 - Z00.00) labs reviewed and discussed with patient 08/26/2024 Neutropenia (ICD-10 - D70.9) is doing well with the white count coming up 08/26/2024 Thyroid cancer (ICD- 10 - C73) need notes from endocrine at [facility]/REQUEST MADE TO [facility] RECORDS 01/08/2024 Type 2 diabetes mellitus without complication, with no history of insulin use (ICD-10 - E11.9) 05/20/2024 Essential hypertensi on (ICD-10 - I10) 01/14/2024 History of thyroidectomy (ICD-10 - E89.0) need results of thyroid surgery at [facility]. dr pena is going to see endocrine in 2 weeks/ REQUEST MADE TO HIM@ [facility] FOR DOCUMENTS 05/27/2024 Type 2 diabetes mellitus without complication, with no history of insulin use (ICD-10 - E11.9) well controlled, will continue current regiment 05/20/2024 Pure hypercholesterolemia (ICD-10 - E78.00) 05/27/2024 Pure hypercholesterolemia (ICD-10 - E78.00) doing well on meds, will continue current regiment 05/20/2024 Elevated PSA (ICD-10 - R97.20) 05/27/2024 Neutropenia (ICD-10 - D70.9) is probably related to the MOLINA 05/20/2024 Neutropenia, unspecified type (ICD-10 - D70.9) 05/27/2024 Rectal bleeding (ICD -10 - K62.5) will get colonoscopy this year. arrange with dr shrestha 05/20/2024 Type 2 diabetes mellitus without complication, [...] 06/12/2023 US THYROID BIOPSY FNA GUIDE 07/10/2023 US thyroid 05/26/2023 Next Appt Details Provider Name:Chris Bowers ier, 11/18/2024 07:45:00 AM, [address] [place] [address], [address], [place], [place], [phone], Provider Name:Chris Bowers ier, 11/25/2024 10:00:00 AM, [address] [place] [address], Suite [facility], [place], [place], [phone], Provider Name:Chris Bowers ier, 05/22/2025 07:30:00 AM, [address] [place] [address], Suite [facility], [place], [place], [phone], Provider Name:Chris Bowers ier, 05/29/2025 09:30:00 AM, [address] [place] [address], Suite [facility], [place], [place], [phone], Insurance Providers Payer Name Payer Address Payer Phone Subscriber Number Group Number Insured Name Patient Relationship to Insured Coverage Start Date Coverage End Date [employer] [address] [place], [place] [id number] Shay Nowak Self - patient is the insured MED[employer] [address] [place] [address] [id number] Shay Nowak Self - patient is the insured 7 Medical (General) History Medical History History ICD Code HEMATURIA WORKED UP BY DR SALTER COLONOSCOPY 2006 due in 2010 colonoscopy 05/05/12, repeat in 5 years; Colonoscopy done by Dr. Shrestha on 10/10/19 - repeat 5 years prostate biopsied 09/2015 for rising PSA - negative; second prostate biopsy done 11/12/16 Prediabetes R73.09
--- OUTSIDE RECORDS SUMMARY | 2024-11-10 11:15 | XMS_ITS | Patient Health Record ---
Author Organization [facility] Address [address] [address] Care Team Providers Care Flight Attendant Ramp Name Role Phone Chris Sanchez MD Primary Care Provider Leon Joseph Unavailable [phone] Allergies Allergen (clinical drug ingredient) Drug/Non Drug Allergy documented on EMR Reaction Allergy Type Onset Date Status some fruits/nuts (uncoded) tingling in tongue Allergy Active Reason For Referral No Information Medications Medication SIG (Take, Route, Frequency, Duration) Notes Start Date End Date Status Claritin 10 MG 1 tablet Orally Once a day 05/16/2013 Active Simvastatin 80 MG 1 tablet in the even ing Orally Once a day 05/16/2013 Active Lisinopril-hydroCHLOROthiaz jeff 20-12.5 MG 1 tablet Orally Once a day 05/16/2013 Active Social History Tobacco use other than smoking: Question Answer Notes Are you an other tobacco user? No Problems Problem Type SNOMED Code ICD Code Onset Dates Problem Status W/U Status Risk Notes Problem Bursitis (62709403) Bursitis (727.3) Active confirmed Problem Myositis (05590221) Myositis (729.1) Active confirmed Problem Pain in limb (94969919) Pain in Limb (729.5) Active confirmed Problem Plantar fasciitis (942049891) Plantar Fasciitis (728.71) Active confirmed Plan Of Treatment Pending Test Test Name Order Date X ray : Foot, left 2V 05/19/2013 X ray : Foot, right 2V 05/19/2013 Insurance Providers Payer Name Payer Address Payer Phone Subscriber Number Group Number Insured Name Patient Relationship to Insured Coverage Start Date Coverage End Date [facility] [address] [place] [address] [id number] Shay Villareal Self - patient is the insured Medical (General) History Medical History History ICD Code Arthritis Back,Hip,and Knee pain Chicken pox Headaches Hypercholesterolemia Hypertension Measles Mumps Transfusions Surgical History Surgery Date(Month/Year) oral surgery 05/2013
--- OUTSIDE RECORDS SUMMARY | 2024-11-10 11:15 | XMS_ITS | Clinical Summary ---
Author Organization [facility] Address [facility] [employer] [address] [address] Phone Care Team Providers Care Inspector Machine Parts Name Role Phone Chris Sanchez MD Primary Care Provider Medications simvastatin (ZOCOR) 80 MG tablet Take 80 mg by mouth nightly. Active lisinopril-hydr oCHLOROthiazide (PRINZIDE,ZESTO RETIC) 10-12.5 mg per tablet Take 1 tablet by mouth 2 (two) times a day. Active ibuprofen (ADVIL,MOTRIN) 800 MG tablet Take 800 mg by mouth 3 (three) times a day. Active loratadine (CLARITIN) 10 mg tablet Take 10 mg by mouth daily as needed for allergies. Active acetaminophen (TYLENOL) 325 mg tablet Take 650 mg by mouth every 6 (six) hours as needed for pain (specific location in comments). 11/04/2018 Active aspirin 325 MG tablet Take 325 mg by mouth 2 (two) times a day. 11/04/2018 Active oxyCODONE HCl 10 mg Tab Take 10 mg by mouth every 6 (six) hours as needed (post-surgica l pain). 11/04/2018 Active lisinopril-hydr oCHLOROthiazide (ZESTORETIC) 20-12.5 mg per tablet Take 1 tablet by mouth daily. 11/04/2018 Active docusate sodium (COLACE) 50 MG capsule Take 100 mg by mouth 2 (two) times a day. 11/04/2018 Active sennosides (SENNA LAXATIVE ORAL) Take 330 mg by mouth as needed (constipation ). 11/04/2018 Active polyethylene glycol (MIRALAX) 17 gram packet Take 17 g by mouth as needed (constipation ). 11/04/2018 Active omega 1-vxe-ngb-fish oil (FISH OIL) 1,000 mg (120 mg-180 mg) Cap Take 1 capsule by mouth daily. 11/04/2018 Active Family History Medical History Relation Comments Prostate cancer Father Breast cancer Maternal Grandmother Breast cancer Sister 1 Breast cancer Sister 2 Relation Status Comments Father Maternal Grandmother Sister 1 Sister 2 Social History Tobacco Use Types Packs/Day Years Used Date Smoking Tobacco: Never Assessed Education Answer Date Recorded Are you interested in more education? Not on kody e 07/04/2022 Are you concerned about learning? Not on file 07/04/2022 No 07/04/2022 No 07/04/2022 Digital Access Answer Date Recorded No 08/04/2022 No 08/04/2022 Reliable internet access at home? Not on file 08/04/2022 Device with a working camera? Not on file Sex and Gender Information Value Date Recorded Sex Assigned at Not on file Legal Sex Male 8:57 AM EDT Gender Identity Not on file Sexual Orientation Not on file Last Filed Vital Signs Vital Sign Reading Time Taken Comments Blood Pressure 128/78 11/11/2018 9:12 AM EDT Pulse 92 11/11/2018 9:12 AM EDT Temperature 36.4 C (97.5 F) 11/06/2018 3:05 PM EDT Respiratory Rate 18 11/11/2018 9:12 AM EDT Oxygen Saturation 97% 11/11/2018 9:12 AM EDT Inhaled Oxygen Concentration - - Weight 94.3 kg (208 lb) 06/09/2017 3:20 PM EDT Height - - Body Mass Index - - Plan of Treatment Health Maintenance Due Date Last Done Comments Adult Td,Tdap Booster 1950 CREATININE LEVEL 1950 LIPID PANEL 1950 POTASSIUM LEVEL 1950 DEPRESSION SCREENING 1962 SMOKING Hx and SMOKELESS TOBACCO SCREENING 1963 HEPATITIS C SCREENING 02/06/1968 COLOGUARD 1995 COLONOSCOPY 1995 COLORECTAL CANCER SCREENING 1995 FIT TEST 1995 FOBT 1995 SIGMOIDOSCOPY 1995 VIRTUAL COLONOSCOPY 1995 ZOSTER VACCINES (1 of 2) 02/06/2000 PNEUMOCOCCAL VACCINES (50+ years) (2 of 2 - PPSV23) 02/13/2017 02/14/2016 INFLUENZA VACCINE (#1) 2024 , 02/18/2019, 01/19/2018, Additional history exists COVID-19 VACCINE (2 - 2024- season) 2024 05/20/2020 RSV VACCINE (1 - 1-dose 75+ series) 2025 HEPATITIS A VACCINES Aged Out No long er eligible based on patient's age to complete this topic HIB VACCINES Aged Out No longer eligi ble based on patient's age to complete this topic MENINGOCOCCAL VACCINES (ACWY) Aged Out No longer eligible based on patient's age to complete this topic MENINGOCOCCAL VACCINES (B) Aged Out N o longer eligible based on patient's age to complete this topic Medical Devices Not on file Insurance [facility] [employer] [place] MEDIC[place] PPO BLUE REPLACEMENT [facility] MED[facility] PPO BLUE REPLACEMENT [facility] MEDICARE PPO BLUE REPLACEMENT [facility] MEDICARE PPO BLUE REPLACEMENT [facility] MEDICARE PPO BLUE REPLACEMENT [facility] MEDICARE PPO BLUE REPLACEMENT [facility] MEDICARE PPO BLUE REPLACEMENT [facility] [employer] [place] MED[place] P[place] BLUE REPLACEMENT [facility] [employer] [place] MEDICARE PPO BLUE REPLACEMENT Care Teams Inspector Machine Parts Relationship Specialty Start Date End Date Chris Sanchez MD [address] [place] [address] [place] [address] PCP - General Internal Medicine 10/15/16 Additional Source Comments The information contained in this document represents components of the legal health record. It is not the complete legal health record.[facility]
--- OUTSIDE RECORDS SUMMARY | 2024-11-10 11:16 | XMS_ITS | Patient Health Record ---
Author Organization [facility] Address [address] [place] [address] Care Team Providers Care Custodial Manager Name Role Phone Chris Sanchez MD Primary Care Provider Quan Pedro Unavailable [phone] Allergies No Known Allergies Reason For Referral No Information Medications Medication SIG (Take, Route, Frequency, Duration) Notes Start Date End Date Status Zolpidem Tartrate 5 MG 1 tablet at bedti sc as needed Orally Once a day Active Simvastatin 80 MG 1 tablet in the even ing Orally Once a day Active Levothyroxine Sodium 137 MCG 1 tablet in the morning on an empty stomach Orally Once a day Active Vitamin C 500 MG as directed Orally Active Claritin 10 MG 1 tablet Orally Once a day for 30 day(s) Active Lisinopril-hydroCHLOROthiazi de 20-12.5 MG 1 tablet Orally bid Active Ibuprofen 800 MG 1 tablet with food o r milk as needed Orally BID Active Immunizations Vaccine Route Administration Date Status Comme nts Influenza Unknown 12/29/2023 Administered Problems Problem Type SNOMED Code ICD Code Onset Dates Problem Status W/U Status Risk Notes Problem 25231851 Rectal bleeding (K62.5) Active confirmed Problem 262031987 Encounter for screening for malignant neoplasm of colon (Z12.11) Active confirmed Problem 474736901 History of adenomatous polyp of colon (Z86.010) Active confirmed Problem Preprocedural examination (428663232348136) Preprocedural examination (Z01.818) Active confirmed Problem 73731109 Bleeding hemorrhoids (K64.9) Active confirmed Vital Signs Temperature 97.3 degrees Fahrenheit 09/15/2024 Blood pressure diastolic 01 mm Hg 09/15/2024 Height 66 in 09/15/2024 Blood pressure systolic 001 mm Hg 09/15/2024 Weight 195.6 lbs 09/15/2024 BMI 31.57 kg/m2 09/15/2024 Procedures Procedure Date Ordered Date Performed Result Body Sit e COLONOSCOPY 09/15/2024 N/A Encounters Encounter Location Date Provider Diagnosis [facility] [address] [place] [address] 09/15/2024 Quan Patel History of adenomato us polyp of colon Z86.010 ; Preprocedural examination Z01.818 and Encounter for screening for malignant neoplasm of colon Z12.11 Assessments Encounter Date Diagnosis (ICD Code) Assessment Notes Treatment Notes Treatment Clinical Notes Section Notes 09/15/2024 History of adenomatous polyp of colon (ICD-10 - Z86.010) Overall, Yousuf appears quite well. Based on his description it sounds like his thyroid cancer has been treated and his prognosis is quite good. As such, given his personal history of colon polyps and his last colonoscopy being just about 5 years ago, I did recommend a follow-up colonoscopy for later this year. We did review the rationale for this in regard to colon cancer prevention. Full consent has been obtained for this, including risks of bleeding and perforation. The procedure will be done with monitored anesthesia care. I did advise him to contact me prior to the colonoscopy if anything changes in regard to the thyroid cancer. Yousuf was very comfortable with this plan. Thank you again for allowing me to participate in Yousuf's care. I shall continue to keep you advised of his progress. 09/15/2024 Preprocedural examination (ICD-10 - Z01.818) Overall, Yousuf appears quite well. Based on his description it sounds like his thyroid cancer has been treated and his prognosis is quite good. As such, given his personal history of colon polyps and his last colonoscopy being just about 5 years ago, I did recommend a follow-up colonoscopy for later this year. We did review the rationale for this in regard to colon cancer prevention. Full consent has been obtained for this, including risks of bleeding and perforation. The procedure will be done with monitored anesthesia care. I did advise him to contact me prior to the colonoscopy if anything changes in regard to the thyroid cancer. Yousuf was very comfortable with this plan. Thank you again for allowing me to participate in Yousuf's care. I shall continue to keep you advised of his progress. 09/15/2024 Encounter for screening for malignant neoplasm of colon (ICD-10 - Z12.11) Overall, Yousuf appears quite well. Based on his description it sounds like his thyroid cancer has been treated and his prognosis is quite good. As such, given his personal history of colon polyps and his last colonoscopy being just about 5 years ago, I did recommend a follow-up colonoscopy for later this year. We did review the rationale for this in regard to colon cancer prevention. Full consent has been obtained for this, including risks of bleeding and perforation. The procedure will be done with monitored anesthesia care. I did advise him to contact me prior to the colonoscopy if anything changes in regard to the thyroid cancer. Yousuf was very comfortable with this plan. Thank you again for allowing me to participate in Yousuf's care. I shall continue to keep you advised of his progress. Plan Of Treatment Pending Test Test Name Order Date COLONOSCOPY 09/15/2024 Future Test Test Name Order Date COLONOSCOPY 02/10/2012 COLONOSCOPY 05/12/2019 Next Appt Details Provider Name:Quan Patel , 12/14/2024 07:30:00 AM, [address] [place] [address], [phone], Insurance Providers Payer Name Payer Address Payer Phone Subscriber Number Group Number Insured Name Patient Relationship to Insured Coverage Start Date Coverage End Date [facility] [address] [place], [place] [id number] [phone] [id number] PHYLLIS WHEELER Self - patient is the insured Medical (General) History Medical History History ICD Code Sigmoid diverticulosis HTN Hyperlipidemia Denies OK,DM,CVA,Lung disease,renal dise ase Colonoscopies in 2000 and 26 08- neg except diverticulosis and internal/external hemorrhoids Sleep apnea-uses a CPAP mask Colonoscopy 04/2012 with a sm all tubular adenoma, diverticulosis, internal/external hemorrhoids Prostate cancer 2018 - XRT Thyroid cancer- 2023- surgery as below- followed by [facility] Negative colonoscopy in 10/2019 except fo r some XRT changes in the rectum Surgical History Surgery Date(Month/Year) thyroidectomy, complete Left knee replacement in 10/[address] Welch Hemorrhoidectomy
[2024-12-12 12:11] VITALS: BMI 31.5
--- NOTE | 2024-12-13 09:24 | HO.ANESPROP2 ---
Documented by User: Delmy Kumar NP 12/13/24 10:26 HPI - Anesthesia Eval Consult details Narrative: 74 yr old male for colonoscopy JAN on CPAP PMFSH Active Problems Active Problems: All Active Problems (Updated 12/12/24 @ 12:10 by Kelsey Pastrana, BETSEY) Sebaceous cyst (Acute) Osteoarthritis of right knee (Acute) Past Medical History Medical History Hx of thyroid cancer Hx of radiation therapy History of prostate cancer (2018) JAN on CPAP HLD (hyperlipidemia) HTN (hypertension) Hx of diverticulitis of colon Prostate cancer Hypertension Family History Family History Father Prostate cancer Sister Breast cancer Surgical History Surgical History Hx of thyroidectomy Hx of hemorrhoidectomy Hx of colonoscopy (2019) History of left knee replacement (10/2018) Social History Social History Alcohol intake: current Alcohol intake frequency: holidays/special occasions only Alcohol type: beer and hard liquor Patient Tobacco Use Status: Former Tobacco user Use of substances other than those prescribed or required for medical reasons: No Advance Directives: No Advance Directives Information Provided: Yes Meds Allergies Allergy/AdvReac Type Severity Reaction Status Date / Time atorvastatin (From LIPITOR) Allergy Unknown MYALGIA Unverified 12/14/24 06:54 nut - unspecified (NUTS) Allergy Unknown SWELLING Unverified 12/14/24 06:54 PITTED FRUIT Allergy Severe SWELLING Uncoded 12/14/24 06:54 FRUIT Allergy Unknown SWELLING Uncoded 12/14/24 06:54 WITH SOME FRUIT Home Medications ?Medication ?Instructions ?Recorded ?Confirmed ?Last Taken ?Type ibuprofen 800 mg tablet 800 mg PO TID 01/06/22 12/12/24 Unknown History lisinopril 20 1 tab PO BID 01/06/22 12/14/24 12/14/24 05:00 History mg-hydrochlorothiazide 12.5 mg tablet simvastatin 80 mg tablet 80 mg PO DAILY 01/06/22 12/12/24 Unknown History zolpidem 5 mg tablet 5 mg PO BEDTIME PRN Insomnia 01/06/22 12/12/24 Unknown History ascorbic acid (vitamin C) 500 mg 500 mg PO DAILY 12/12/24 12/12/24 Unknown History tablet (Vitamin C) levothyroxine 137 mcg tablet 137 mcg PO DAILY 12/12/24 12/12/24 Unknown History loratadine 10 mg tablet (Claritin) 10 mg PO DAILY 12/12/24 12/14/24 12/14/24 05:00 History Exam Height,Weight and Vital Signs: Height 5 ft 6 in Weight 88.621 kg Documented by User: Ellyn Hammond MD 12/14/24 08:10 PMFSH Past Medical History Medical History Hx of thyroid cancer Hx of radiation therapy History of prostate cancer (2018) JAN on CPAP HLD (hyperlipidemia) HTN (hypertension) Hx of diverticulitis of colon Prostate cancer Hypertension Family History Family History Father Prostate cancer Sister Breast cancer Family history of problems with anesthesia: No Surgical History Surgical History Hx of thyroidectomy Hx of hemorrhoidectomy Hx of colonoscopy (2019) History of left knee replacement (10/2018) History of Problems with Anesthesia: No Social History Social History Alcohol intake: current Alcohol intake frequency: holidays/special occasions only Alcohol type: beer and hard liquor Patient Tobacco Use Status: Former Tobacco user Use of substances other than those prescribed or required for medical reasons: No Advance Directives: No Advance Directives Information Provided: Yes Meds Allergies Allergy/AdvReac Type Severity Reaction Status Date / Time atorvastatin (From LIPITOR) Allergy Unknown MYALGIA Unverified 12/14/24 06:54 nut - unspecified (NUTS) Allergy Unknown SWELLING Unverified 12/14/24 06:54 PITTED FRUIT Allergy Severe SWELLING Uncoded 12/14/24 06:54 FRUIT Allergy Unknown SWELLING Uncoded 12/14/24 06:54 WITH SOME FRUIT Home Medications ?Medication ?Instructions ?Recorded ?Confirmed ?Last Taken ?Type ibuprofen 800 mg tablet 800 mg PO TID 01/06/22 12/12/24 Unknown History lisinopril 20 1 tab PO BID 01/06/22 12/14/24 12/14/24 05:00 History mg-hydrochlorothiazide 12.5 mg tablet simvastatin 80 mg tablet 80 mg PO DAILY 01/06/22 12/12/24 Unknown History zolpidem 5 mg tablet 5 mg PO BEDTIME PRN Insomnia 01/06/22 12/12/24 Unknown History ascorbic acid (vitamin C) 500 mg 500 mg PO DAILY 12/12/24 12/12/24 Unknown History tablet (Vitamin C) levothyroxine 137 mcg tablet 137 mcg PO DAILY 12/12/24 12/12/24 Unknown History loratadine 10 mg tablet (Claritin) 10 mg PO DAILY 12/12/24 12/14/24 12/14/24 05:00 History Exam Airway Mallampati Class: III TM Dist: <=3cm Neck ROM: Limited Heart: rrr Lungs: cta Assessment and Plan Assessment Anesthesia Assessment: Anesthesia Plan Discussed and Chart Reviewed Final Anesthetic Review Family History of Problems with Anesthesia: No History of Problems with Anesthesia: No NPO: Yes ASA Class: III Final Preanesthetic Review: No Changes in Pt Med Stat, Meds/Allgs Chart Reviewed, Consent Obtained/Reviewed and Anes Risks/Benef Reviewed Patient Risk: Intermediate Procedure Risk: Low Anesthetic Plan Anesthetic Plan: MAC: Disposition: Standard PACU
[2024-12-14 06:40] VITALS: BMI 31.2
[2024-12-14] MEDS: Lactated Ringers 1,000 ML 100 ML IVCONT (06:54)
[2024-12-14 06:55] VITALS: BP 121/67; PULSE 91; RESP 17; TEMP 36.5; O2SAT 96
[2024-12-14 08:40] VITALS: BP 105/60; PULSE 76; RESP 15; TEMP 36.3; O2SAT 96
--- NOTE | 2024-12-14 08:45 | PM.OP ---
Brief Operative Note Date of Service: 12/14/24 Pre-op diagnosis: Screening Post-op diagnosis: other (Diverticulosis, Rectal telangiectasias from XRT) Procedure: Colonoscopy to the cecum and TI Surgeon: Quan Patel MD Anesthesia: MAC Was an Hardware Installation Coordinator used for this Procedure?: No Estimated blood loss (mL): 0 Pathology: none sent Condition: stable Disposition: PACU
[2024-12-14 08:55] VITALS: BP 117/65; PULSE 73; RESP 12; TEMP 36.4; O2SAT 98
--- NOTE | 2024-12-14 09:28 | OP_ITS ---
DATE OF SERVICE: 12/14/2024 SURGEON: Quan Patel MD INDICATIONS: The patient presents for evaluation of personal history of colon polyps and colorectal cancer screening. Full consent was obtained from him for this, including risks of bleeding and perforation. PREOPERATIVE DIAGNOSIS: Colorectal cancer screening and personal history of tubular adenomas. POSTOPERATIVE DIAGNOSIS: Colorectal cancer screening and personal history of tubular adenomas, diverticulosis, internal hemorrhoids. PROCEDURE PERFORMED: Colonoscopy to the cecum and terminal ileum. ESTIMATED BLOOD LOSS: COMPLICATIONS: ANESTHESIA: Monitored anesthesia care. ASSISTANTS: SPECIMENS: DESCRIPTION OF PROCEDURE: The patient was placed in the left lateral decubitus position. The digital rectal exam revealed no abnormalities. The Olympus video pediatric colonoscope was entered into the rectum and advanced easily to the cecum. Once in the cecum, I did identify normal-appearing cecal pouch with appendiceal orifice and a normal-appearing ileocecal valve. The terminal ileum was cannulated and appeared normal. The scope was withdrawn back in the colon. The entire cecum and ileocecal valve appeared normal. Scope was slowly withdrawn assessing all mucosal surfaces carefully. Preparation was excellent. I did not visualize any sign of polyps, colitis, nor angiodysplasia. There was a mild amount of sigmoid diverticulosis. In the rectum, scope was retroflexed visualizing internal hemorrhoids as well as some telangiectasias consistent with previous radiation treatments. There was some minimal friability in the distal rectum. There were no masses or polyps. The scope was straightened and withdrawn from the patient. He tolerated the procedure well and was returned to recovery area in stable condition. IMPRESSION: 1. Diverticulosis. 2. Internal hemorrhoids. 3. Changes of radiation treatments with rectal telangiectasias. PLAN: Given no sign of polyps today, as well as a negative exam in 2019 and his age, I do not think he needs any further screening colonoscopies going forward. As such, he would see me as needed. This has been discussed with his . MD SAIDA Jacob/ANETA / [phone] LAUREANO
== END 2024-12-14 09:54 | disposition home or self-care (01) ==
PROVIDERS: PCP Internal Medicine; Visit Provider Internal Medicine
PROC: 0DJD8ZZ Inspection of Lower Intestinal Tract, Via Natural or Artificial Opening Endoscopic (ICD-10-PCS; CPT 45378; principal; 2024-12-14 07:30)
DX: Z12.11 Encounter for screening for malignant neoplasm of colon (principal); K57.30 Diverticulosis of large intestine without perforation or abscess without bleeding; K64.8 Other hemorrhoids; K62.7 Radiation proctitis; Y84.2 Radiological procedure and radiotherapy as the cause of abnormal reaction of the patient, or of later complication, without mention of misadventure at the time of the procedure; Y78.1 Therapeutic (nonsurgical) and rehabilitative radiological devices associated with adverse incidents; Z86.0101 Personal history of adenomatous and serrated colon polyps; I10 Essential (primary) hypertension; Z79.899 Other long term (current) drug therapy
CPT/HCPCS: G0105; J2704